=== PATIENT | female | born 1945 | race Caucasian/White ===

== ENCOUNTER → 2019-11-01 08:16 | Outpatient (BNVA) | payer MEDICARE, SELFPAY | PROVIDERS: Family Provider Nurse Practitioner Family; PCP Nurse Practitioner Family; Visit Provider Anesthesiology | DX: M17.0 Bilateral primary osteoarthritis of knee (principal); M19.90 Unspecified osteoarthritis, unspecified site; Z79.891 Long term (current) use of opiate analgesic | CPT/HCPCS: 20610; 77003; J2001; J7325 ==

== ENCOUNTER → 2019-11-07 16:18 | Outpatient (BNVA) | payer MEDICARE, SELFPAY | PROVIDERS: Family Provider Nurse Practitioner Family; PCP Nurse Practitioner Family; Visit Provider Nurse Practitioner Family | DX: D72.820 Lymphocytosis (symptomatic) (principal); D72.829 Elevated white blood cell count, unspecified; M35.3 Polymyalgia rheumatica; E11.40 Type 2 diabetes mellitus with diabetic neuropathy, unspecified; E11.65 Type 2 diabetes mellitus with hyperglycemia | CPT/HCPCS: 85007; 85027 ==

== ENCOUNTER → 2019-11-29 10:04 | Outpatient (BNVA) | payer BC, SELFPAY | PROVIDERS: Family Provider Nurse Practitioner Family; PCP Nurse Practitioner Family; Visit Provider Nurse Practitioner | DX: M51.36 Other intervertebral disc degeneration, lumbar region (principal); M47.812 Spondylosis without myelopathy or radiculopathy, cervical region; M25.511 Pain in right shoulder; M25.512 Pain in left shoulder; M25.561 Pain in right knee; M25.562 Pain in left knee; Z79.891 Long term (current) use of opiate analgesic | CPT/HCPCS: 99214 ==

== ENCOUNTER → 2020-03-27 14:32 | Outpatient (BNVA) | payer MEDICARE, SELFPAY | PROVIDERS: Family Provider Nurse Practitioner Family; PCP Nurse Practitioner Family; Visit Provider Anesthesiology | DX: G89.4 Chronic pain syndrome (principal); M51.36 Other intervertebral disc degeneration, lumbar region; M54.9 Dorsalgia, unspecified; M25.561 Pain in right knee; M25.562 Pain in left knee; M47.812 Spondylosis without myelopathy or radiculopathy, cervical region; Z79.891 Long term (current) use of opiate analgesic | CPT/HCPCS: 99214 ==

== ENCOUNTER → 2020-04-29 14:45 | Outpatient (BNVA) | payer MEDICARE, SELFPAY | PROVIDERS: Family Provider Nurse Practitioner Family; PCP Nurse Practitioner Family; Visit Provider Nurse Practitioner Family | DX: I10 Essential (primary) hypertension (principal); E03.9 Hypothyroidism, unspecified; E11.40 Type 2 diabetes mellitus with diabetic neuropathy, unspecified; M35.3 Polymyalgia rheumatica | CPT/HCPCS: 80053; 82044; 83036; 84443 ==

== ENCOUNTER → 2020-05-28 13:21 | Outpatient (BNVA) | payer MEDICARE, SELFPAY | PROVIDERS: Family Provider Nurse Practitioner Family; PCP Nurse Practitioner Family; Visit Provider Nurse Practitioner | DX: M51.36 Other intervertebral disc degeneration, lumbar region (principal); M47.812 Spondylosis without myelopathy or radiculopathy, cervical region; M25.561 Pain in right knee; M25.562 Pain in left knee; M15.9 Polyosteoarthritis, unspecified; Z02.89 Encounter for other administrative examinations; Z79.891 Long term (current) use of opiate analgesic | CPT/HCPCS: 99213; 99214 ==

== ENCOUNTER → 2020-07-25 12:50 | Outpatient (BNVA) | payer MEDICARE, SELFPAY | PROVIDERS: Family Provider Nurse Practitioner Family; PCP Nurse Practitioner Family; Visit Provider Anesthesiology | DX: M54.41 Lumbago with sciatica, right side (principal); M54.42 Lumbago with sciatica, left side; M51.36 Other intervertebral disc degeneration, lumbar region; M54.9 Dorsalgia, unspecified; M25.561 Pain in right knee; M25.562 Pain in left knee; M47.812 Spondylosis without myelopathy or radiculopathy, cervical region; M15.9 Polyosteoarthritis, unspecified; Z79.891 Long term (current) use of opiate analgesic | CPT/HCPCS: 99214 ==

== ENCOUNTER → 2020-09-25 13:34 | Outpatient (BNVA) | payer MEDICARE, SELFPAY | PROVIDERS: Family Provider Nurse Practitioner Family; PCP Family Medicine Adult Medicine; Visit Provider Anesthesiology | DX: M54.42 Lumbago with sciatica, left side (principal); M54.41 Lumbago with sciatica, right side; M51.36 Other intervertebral disc degeneration, lumbar region; M47.812 Spondylosis without myelopathy or radiculopathy, cervical region; M54.9 Dorsalgia, unspecified; M25.561 Pain in right knee; M25.562 Pain in left knee; Z79.891 Long term (current) use of opiate analgesic | CPT/HCPCS: 99214 ==

== ENCOUNTER → 2020-11-25 14:17 | Outpatient (BNVA) | payer MEDICARE, SELFPAY | PROVIDERS: Family Provider Nurse Practitioner Family; PCP Family Medicine Adult Medicine; Visit Provider Anesthesiology | DX: M51.36 Other intervertebral disc degeneration, lumbar region (principal); M47.812 Spondylosis without myelopathy or radiculopathy, cervical region; M54.9 Dorsalgia, unspecified; M25.551 Pain in right hip; M79.605 Pain in left leg; Z79.891 Long term (current) use of opiate analgesic | CPT/HCPCS: 99214 ==

== ENCOUNTER → 2020-11-27 10:39 | Outpatient (BNVA) | payer MEDICARE, SELFPAY | PROVIDERS: Family Provider Nurse Practitioner Family; PCP Family Medicine Adult Medicine; Visit Provider Nurse Practitioner Family | DX: E03.9 Hypothyroidism, unspecified (principal); E11.40 Type 2 diabetes mellitus with diabetic neuropathy, unspecified; Z51.81 Encounter for therapeutic drug level monitoring; M15.9 Polyosteoarthritis, unspecified | CPT/HCPCS: 80053; 83036; 84443 ==

== ENCOUNTER → 2021-01-22 13:55 | Outpatient (BNVA) | payer MEDICARE, SELFPAY | PROVIDERS: Family Provider Nurse Practitioner Family; PCP Family Medicine Adult Medicine; Visit Provider Anesthesiology | DX: M51.36 Other intervertebral disc degeneration, lumbar region (principal); M54.9 Dorsalgia, unspecified; M47.812 Spondylosis without myelopathy or radiculopathy, cervical region; M25.551 Pain in right hip; M79.605 Pain in left leg; Z79.891 Long term (current) use of opiate analgesic | CPT/HCPCS: 99214 ==

== ENCOUNTER 2021-01-31 17:49 | Emergency (ER) | payer MEDICARE, SELFPAY ==
[2021-01-31 17:59] VITALS: BP 136/88; PULSE 70; RESP 16; TEMP 37.1; O2SAT 97; BMI 28.3
[2021-01-31 18:07] VITALS: BP 139/62; PULSE 66; RESP 16; O2SAT 97
[2021-01-31 18:16] VITALS: BP 139/62; PULSE 66; RESP 16; O2SAT 98
--- NOTE | 2021-01-31 18:18 | XRR_ITS ---
PROCEDURE INFORMATION: Exam: XR Chest Exam date and time: 01/31/2021 6:20 PM Age: 75 years old Clinical indication: Prior surgery; Surgery date: 6+ months; Surgery type: Breast bx; Patient HX: C/O weakness and pain all over TECHNIQUE: Imaging protocol: XR of the chest. Views: 1 view. COMPARISON: No relevant prior studies available. FINDINGS: Lungs: Unremarkable. No consolidation. Pleural spaces: Unremarkable. No pleural effusion. No pneumothorax. Heart/Mediastinum: Unremarkable. No cardiomegaly. Bones/joints: Unremarkable. XR/XR chest 1V portable [id number] IMPRESSION: No acute findings.
--- NOTE | 2021-01-31 18:19 | USR_ITS ---
PROCEDURE INFORMATION: Exam: US Duplex Right Upper Extremity Veins, Limited Exam date and time: 01/31/2021 7:28 PM Age: 75 years old Clinical indication: Pain; Arm, upper; Right; Additional info: Rue swelling, redness, pain TECHNIQUE: Imaging protocol: Real-time Duplex ultrasound of the Right Upper Extremity with 2-D goldman scale, color Doppler flow and spectral waveform analysis with image documentation. Limited exam focused on the right upper extremity veins. COMPARISON: No relevant prior studies available. FINDINGS: Right deep veins: Unremarkable. Axillary and brachial veins are patent throughout without thrombus. Normal Doppler waveforms. Normal compressibility and/or augmentation response. Visualized internal jugular and subclavian veins are patent. Radial and ulnar veins in the forearm are patent. Right superficial veins: Unremarkable. Visualized basilic veins are patent without thrombus. Soft tissues: Unremarkable. US/[place] [id number] IMPRESSION: No evidence of deep or superficial vein thrombosis in the right upper extremity.
[2021-01-31 18:42] LABS: Basophils # 0.1 10^3/uL (0.0-0.1); Basophils % 0.5 %; Eosinophils # 0.3 10^3/uL (0.0-0.8); Eosinophils % 2.5 %; Hemoglobin 12.6 g/dL (11.5-15.3); Lymphocytes # 2.3 10^3/uL (0.8-4.8); Lymphocytes % 18.3 %; Mean Corpuscular HGB Conc 31.5 g/dL (30.0-36.0); Mean Corpuscular Hemoglobin 29.6 pg (28.0-34.0); Mean Corpuscular Volume 93.9 fL (81-99); Monocytes % 8.1 %; Neutrophils % 69.4 %; Nucleated Red Blood Cells % 0 %; Platelet Count 296 10^3/cmm (130-400); Red Blood Count 4.26 10^6/uL (4.1-5.3); Red Cell Distribution Width 14.5 % (12.1-15.1); White Blood Count 12.7 10^3/uL (4.0-10.0)
[2021-01-31 18:59] LABS: Lactate (Lactic Acid level) 1.2 mmol/L (0.5-2.2)
[2021-01-31 19:09] LABS: Procalcitonin 0.06 ng/mL (0-0.5)
[2021-01-31 19:16] VITALS: BP 135/66; PULSE 72; RESP 18; O2SAT 98
[2021-01-31 19:20] LABS: Alanine Aminotransferase 8 U/L (0-33); Albumin Level 3.6 g/dL (3.5-5.2); Alkaline Phosphatase 87 IU/L (35-105); Anion Gap 14.3 (5-19); Aspartate Amino Transferase 13 U/L (0-32); Blood Urea Nitrogen 16 mg/dL (8-23); C Reactive Protein 44.8 mg/L (0.0-4.9); Calcium 8.8 mg/dL (8.5-10.5); Carbon Dioxide 26 mmol/L (22-29); Chloride 97 mmol/L (98-107); Creatine Phosphokinase 98 U/L (26-192); Globulin 2.9 g/dL (1.3-4.6); Glucose 127 mg/dL (65-115); Osmolality Calculated 279 mOsm/kg (285-295); Potassium 4.3 mmol/L (3.5-5.1); Sodium 133 mmol/L (136-145); Total Bilirubin 0.5 mg/dL (0.15-1.2); Total Protein 6.5 g/dL (6.6-8.7)
--- NOTE | 2021-01-31 19:43 | W.ED.WEAKNES ---
HPI - Weakness General: Chief complaint: Weakness Stated complaint: WEAKNESS Time Seen by Provider: 01/31/21 17:59 Source: patient and family (daughter) Mode of arrival: ambulatory Limitations: no limitations History of Present Illness: HPI Narrative: The patient is a 75 year old female who was recently diagnosed with DM and lupus. She states that 2 of her brothers from lupus. She presents today with complaints of generalized weakness, generalized body aches, difficulty with ambulation. She has also had intermittent fever. MD Complaint: generalized weakness, lack of energy and difficulty walking Onset (ago): week(s) (1) Duration: constant Location: generalized Associated symptoms: Reports chills and dysuria; Denies chest pain, confusion, melena, decreased appetite, diaphoresis, easy bruising, fever(s), headache(s), myalgias, nausea, rash, short of breath, syncope or vomiting Review of Systems General: Reports: 10 or more systems reviewed and unremarkable except in HPI and below Const: Reports: chills; Denies: fever(s) or diaphoresis Card: Denies: chest pain or syncope GI: Denies: nausea, vomiting or melena : Reports: dysuria Neuro: Denies: headache(s) or confusion Natan/Lymph: Denies: easy bruising PFSH ED PFSH: Medical History (Updated 01/31/21 @ 20:55 by Tiffanie Al[place] [facility] [place] Anxiety disorder, unspecified Cervical spine arthritis Chronic pain disorder DDD (degenerative disc disease), lumbar Enrolled in chronic care management HTN (hypertension) Hypothyroidism Knee pain, bilateral Left anterior knee pain Long-term current use of opiate analgesic Pain management contract signed PMR (polymyalgia rheumatica) Subluxation of C5-C6 cervical vertebrae Type 2 diabetes mellitus with diabetic neuropathy, unspecified Surgical History (Reviewed 01/31/21 @ 20:21 by Tiffanie Al[place], [facility] [place] H/O total thyroidectomy H/O: hysterectomy History of appendectomy Previous back surgery Social History (Reviewed 01/31/21 @ 20:21 by Tiffanie Al[place]te [place], [facility] [place] Smoking and tobacco status: former smoker Alcohol intake: never Caregiver/support person: Yes (DAUGHTER THE BEST THAT SHE CAN) Lives independently: Yes Housing: House Pets and animals: Yes Pets & animals: dog(s) History of recent travel: No Physical Exam Const: COMMON NORMALS: no acute distress, average body habitus, patient oriented x3, no limitations, healthy appearing, alert and well nourished HENMT: COMMON NORMALS: normocephalic, atraumatic and moist oral mucous membranes HEAD & SCALP: normocephalic and atraumatic Neck/C-Spine: COMMON NORMALS: no meningeal signs and no JVD Resp: COMMON NORMALS: normal respiratory effort, No retractions, No use of accessory muscles, clear to auscultation bilaterally and percussion normal AUSCULTATION: clear to auscultation bilaterally PERCUSSION: percussion normal Cardio: COMMON NORMALS: no JVD, regular rate, regular rhythm, S1 normal heart sound present, S2 normal heart sound present, No gallops present (Cardio), No clicks present (Cardio), No murmurs present (Cardio), No rub (Cardio) and Peripheral pulses 2+ throughout RATE: regular rate RHYTHM: regular rhythm HEART SOUNDS: S1 normal heart sound present and S2 normal heart sound present PERIPHERAL PULSES: Peripheral pulses 2+ throughout GI: COMMON NORMALS: Normal to inspection, nondistended, normoactive bowel sounds present, Soft to palpation, non-tender, No hepatosplenomegaly present, no masses and no bruits PALPATION: Yes Soft to palpation and Yes No hepatosplenomegaly present Extremity: COMMON NORMALS: normal to inspection, full ROM, capillary refill normal, no calf tenderness and no pedal edema NARRATIVE EXTREMITY EXAM: Erythema or warmth of her right upper arm. Neuro: COMMON NORMALS: patient oriented x3 SENSORIUM/ORIENTATION: Yes alert MENINGEAL SIGNS: Yes no meningeal signs Skin: COMMON NORMALS: no rashes or lesions noted, no wounds, turgor normal, no jaundice, no petechiae and no mottling GENERAL SKIN EXAM: no rashes or lesions noted and turgor normal Course Reevaluation(s): Reevaluation #1: Discussed her lab and imaging findings with her. Unremarkable. No obvious cause for her weakness. CRP is elevated and she may be having a flareup of her lupus. We will increase the dose of her steroids and see if this helps her symptoms. She voiced understanding and is in agreement with the plan. Time: 20:50 Vital Signs: Vital signs: Vital Signs Temperature 98.8 F 01/31/21 17:59 Pulse Rate 67 01/31/21 21:23 Respiratory Rate 24 H 01/31/21 21:23 Blood Pressure 132/63 01/31/21 21:23 Pulse Oximetry 98 01/31/21 21:23 MDM - Weakness MDM Narrative: Medical decision making narrative: 75-year-old female patient who presents to the emergency department with generalized weakness. She was recently diagnosed with diabetes mellitus and lupus and evaluation in the emergency department did not reveal any obvious cause for her symptoms. She will be managed as a case of flareup of her lupus with oral corticosteroids. She will follow-up with her primary care provider. Medical Records: Attestation: I reviewed the patient's medical records. Lab Data: Attestation: I reviewed the patient's lab results. Labs: Lab Results 01/31/21 01/31/21 01/31/21 Range/Units 18:34 18:34 18:34 WBC 12.7 H (4.0-10.0) 10^3/ uL RBC 4.26 (4.1-5.3) 10^6/u L Hgb 12.6 (11.5-15.3) g/dL Hct 40.0 (37.0-47.0) % MCV 93.9 (81-99) fL MCH 29.6 (28.0-34.0) pg MCHC 31.5 (30.0-36.0) g/dL RDW 14.5 (12.1-15.1) % Plt Count 296 (130-400) 10^3/c mm MPV 10.0 (7.4-10.4) fL Neut % (Auto) 69.4 % Lymph % (Auto) 18.3 % Schuyler % (Auto) 8.1 % Eos % (Auto) 2.5 % Baso % (Auto) 0.5 % Neut # (Auto) 8.80 H (1.8-7.7) 10^3/u L Lymph # (Auto) 2.3 (0.8-4.8) 10^3/u L Schuyler # (Auto) 1.0 H (0.2-0.9) 10^3/u L Eos # (Auto) 0.3 (0.0-0.8) 10^3/u L Baso # (Auto) 0.1 (0.0-0.1) 10^3/u L Nucleated RBC % (a uto) 0 % Nucleated RBCs # 0.0 /100WBC Sodium 133 L (136-145) mmol/L Potassium 4.3 (3.5-5.1) mmol/L Chloride 97 L (98-107) mmol/L Carbon Dioxide 26 (22-29) mmol/L Anion Gap 14.3 (5-19) BUN 16 (8-23) mg/dL Creatinine 0.6 (0.5-0.9) mg/dL GFR Calculation Not Reportable Glucose 127 H (65-115) mg/dL Calculated Osmolal ity 279 L (285-295) mOsm/k g Lactate 1.2 (0.5-2.2) mmol/L Calcium 8.8 (8.5-10.5) mg/dL Total Bilirubin 0.5 (0.15-1.2) mg/dL AST 13 (0-32) U/L ALT 8 (0-33) U/L Alkaline Phosphata se 87 (35-105) IU/L Creatine Kinase 98 (26-192) U/L C-Reactive Protein 44.8 H (0.0-4.9) mg/L Total Protein 6.5 L (6.6-8.7) g/dL Albumin 3.6 (3.5-5.2) g/dL Globulin 2.9 (1.3-4.6) g/dL Procalcitonin 0.06 (0-0.5) ng/mL Urine Color (Yellow) Urine Appearance (CLEAR) Urine pH (5-7) Ur Specific Gravit y (1.005-1.030) Urine Protein (Negative) Urine Glucose (UA) (Normal) Urine Ketones (Negative) Urine Blood (Negative) Urine Nitrate (Negative) Urine Bilirubin (Negative) Urine Urobilinogen (Negative) mg/dL Ur Leukocyte Jada ase (Negative) Urine RBC (0-2) /hpf Urine WBC (0-5) /hpf Ur Squamous Epith Cells (0-5) /hpf Amorphous Sediment Urine Bacteria (NONE) /hpf 01/31/21 Range/Units 19:24 WBC (4.0-10.0) 10^3/ uL RBC (4.1-5.3) 10^6/u L Hgb (11.5-15.3) g/dL Hct (37.0-47.0) % MCV (81-99) fL MCH (28.0-34.0) pg MCHC (30.0-36.0) g/dL RDW (12.1-15.1) % Plt Count (130-400) 10^3/c mm MPV (7.4-10.4) fL Neut % (Auto) % Lymph % (Auto) % Schuyler % (Auto) % Eos % (Auto) % Baso % (Auto) % Neut # (Auto) (1.8-7.7) 10^3/u L Lymph # (Auto) (0.8-4.8) 10^3/u L Schuyler # (Auto) (0.2-0.9) 10^3/u L Eos # (Auto) (0.0-0.8) 10^3/u L Baso # (Auto) (0.0-0.1) 10^3/u L Nucleated RBC % (a uto) % Nucleated RBCs # /100WBC Sodium (136-145) mmol/L Potassium (3.5-5.1) mmol/L Chloride (98-107) mmol/L Carbon Dioxide (22-29) mmol/L Anion Gap (5-19) BUN (8-23) mg/dL Creatinine (0.5-0.9) mg/dL GFR Calculation Glucose (65-115) mg/dL Calculated Osmolal ity (285-295) mOsm/k g Lactate (0.5-2.2) mmol/L Calcium (8.5-10.5) mg/dL Total Bilirubin (0.15-1.2) mg/dL AST (0-32) U/L ALT (0-33) U/L Alkaline Phosphata se (35-105) IU/L Creatine Kinase (26-192) U/L C-Reactive Protein (0.0-4.9) mg/L Total Protein (6.6-8.7) g/dL Albumin (3.5-5.2) g/dL Globulin (1.3-4.6) g/dL Procalcitonin (0-0.5) ng/mL Urine Color Yellow (Yellow) Urine Appearance Clear (CLEAR) Urine pH 7 (5-7) Ur Specific Gravit y 1.010 (1.005-1.030) Urine Protein Neg (Negative) Urine Glucose (UA) Norm (Normal) Urine Ketones Negative (Negative) Urine Blood Neg (Negative) Urine Nitrate Negative (Negative) Urine Bilirubin Neg (Negative) Urine Urobilinogen Norm (Negative) mg/dL Ur Leukocyte Jada ase Trace H (Negative) Urine RBC 0-4 H (0-2) /hpf Urine WBC 5-10 H (0-5) /hpf Ur Squamous Epith Cells 0-4 H (0-5) /hpf Amorphous Sediment Not Reportable Urine Bacteria Trace (NONE) /hpf Imaging Data^: US Vascular: Attestation: I personally reviewed and interpreted this imaging study as follows: Radiologist's impression: [address] [address] Ultrasound Report Signed Patient: Jaclyn Sellers #: [id number] : 3Acct#:[id number] Age/Sex: 75 / FADM Date: 01/31/21 Loc: ERRoom/Bed: Attending Dr: Ordering Provider/Ordering MD: Tiffanie Al[place] [facility] [place] Date of Service: 01/31/21 Procedure(s): [place] [id number] Accession Number(s): [id number] Report Number: [id number] PROCEDURE INFORMATION: Exam: US Duplex Right Upper Extremity Veins, Limited Exam date and time: 01/31/2021 7:28 PM Age: 75 years old Clinical indication: Pain; Arm, upper; Right; Additional info: Rue swelling, redness, pain TECHNIQUE: Imaging protocol: Real-time Duplex ultrasound of the Right Upper Extremity with 2-D goldman scale, color Doppler flow and spectral waveform analysis with image documentation. Limited exam focused on the right upper extremity veins. COMPARISON: No relevant prior studies available. FINDINGS: Right deep veins: Unremarkable. Axillary and brachial veins are patent throughout without thrombus. Normal Doppler waveforms. Normal compressibility and/or augmentation response. Visualized internal jugular and subclavian veins are patent. Radial and ulnar veins in the forearm are patent. Right superficial veins: Unremarkable. Visualized basilic veins are patent without thrombus. Soft tissues: Unremarkable. US/[place] [id number] IMPRESSION: No evidence of deep or superficial vein thrombosis in the right upper extremity. Dictated By:Jim Townsend Signed By:Massiel Townsend Date/Time:01/31/211947 DD/ 46 CXR: Attestation: I personally reviewed and interpreted this imaging study as follows: Radiologist's impression: [address] [address] XRay Report Signed Patient: Jaclyn Sellers #: [id number] : 3Acct#:[id number] Age/Sex: 75 / FADM Date: 01/31/21 Loc: ERRoom/Bed: Attending Dr: Ordering Provider/Ordering MD: Tiffanie Almonte [place], [facility] [place] Date of Service: 01/31/21 Procedure(s): XR chest 1V portable [id number] Accession Number(s): [id number] Report Number: [id number] PROCEDURE INFORMATION: Exam: XR Chest Exam date and time: 01/31/2021 6:20 PM Age: 75 years old Clinical indication: Prior surgery; Surgery date: 6+ months; Surgery type: Breast bx; Patient HX: C/O weakness and pain all over TECHNIQUE: Imaging protocol: XR of the chest. Views: 1 view. COMPARISON: No relevant prior studies available. FINDINGS: Lungs: Unremarkable. No consolidation. Pleural spaces: Unremarkable. No pleural effusion. No pneumothorax. Heart/Mediastinum: Unremarkable. No cardiomegaly. Bones/joints: Unremarkable. XR/XR chest 1V portable [id number] IMPRESSION: No acute findings. Dictated By:Jim Townsend Signed By:Massiel Townsend Date/Time:01/31/211918 DD/ 17 Discharge Plan Discharge Patient Disposition: Home Clinical Impression: Generalized weakness, PMR (polymyalgia rheumatica) Condition: Stable Prescriptions: New prednisone 20 mg tablet 40 mg PO DAILY 5 Days Qty: 10 RF: 0 Continued [id number]-[id number] Tablet 1 tab PO ONCE RF: 0 sertraline 50 mg tablet 50 mg PO Q24H Qty: 90 RF: 0 ciprofloxacin HCl [Ciloxan] 0.3 % drops See Rx Instructions ophthalmic (eye) .COMPLEX Qty: 10 RF: 0 hydrocodone-acetaminophen 10-325 mg tablet 1 tab PO .6 TIMES 30 Days Qty: 180 RF: 0 hydrocodone-acetaminophen 10-325 mg tablet 1 tab PO .6 TIMES DAILY PRN (Reason: pain) 30 Days Qty: 180 RF: 0 gabapentin 300 mg capsule 300 mg PO TID 30 Days Qty: 90 RF: 1 temazepam 15 mg capsule 15 mg PO .QHS 30 Days Qty: 30 RF: 1 (DME) Accu-Chek Lauryn Plus test strp Strip See Rx Instructions .ROUTE .MEDSUPPLY Qty: 100 RF: 11 Januvia 100 mg tablet 100 mg PO DAILY Qty: 90 RF: 1 prednisone 10 mg tablet 10 mg PO .every other day Qty: 30 RF: 0 pen needle, diabetic [BD Aishwarya 2nd Gen Pen Needle] 32 gauge x 5/32 needle See Rx Instructions .ROUTE .COMPLEX Qty: 100 RF: 0 levothyroxine 100 mcg capsule 100 mcg PO DAILY Qty: 90 RF: 0 Lantus Solostar U-100 Insulin 100 unit/mL (3 mL) insulin pen 10 unit SUBCUT .bedtime Qty: 15 RF: 0 lisinopril 20 mg tablet 20 mg PO DAILY Qty: 90 RF: 0 omeprazole magnesium [Prilosec OTC] 20 mg tablet,delayed release (DR/EC) 20 mg PO DAILY Qty: 90 RF: 0 oxycodone 10 mg tablet 10 mg PO QID PRN (Reason: pain) 30 Days Qty: 120 RF: 0 Discharge Orders: Discharge ED (Routine); Ordered 01/31/21 Ordered By: Tiffanie Almonte Referrals: Leonardo Loaiza MD [Primary Care Provider] - 1-3 days Discharge Diet: Usual diet Discharge Activity: Increase activity as tolerated Patient Instructions: Weakness (Generalized) Activity Restrictions/Additional Instructions: Return for any new or worsening symptoms. Follow-up with your primary care provider within 3 days. Take the steroids as prescribed, and resume your prior dose of steroids after this. Coding Level of Care Code ED Operating Room Nurse for Sunshine Fwd Exam Comprehensive
[2021-01-31 19:47] LABS: Add Urine Microscopic? YES; Bilirubin Urine Neg (Negative); Blood Urine Neg (Negative); Glucose Urine UA Norm (Normal); Ketones Urine Negative (Negative); Leukocyte Esterase Urine Trace (Negative); Nitrate Urine Negative (Negative); Protein Urine Neg (Negative); Urine Appearance Clear (CLEAR); Urine Color Yellow (Yellow); Urobilinogen Urine Norm (Negative); pH Urine 7 (5-7)
[2021-01-31 19:51] LABS: Add Urine Culture? No; Bacteria Urine TRACE /hpf; RBC Urine 0-4 /hpf (0-2); Squamous Epithelial Cell Urine 0-4 /hpf (0-5)
[2021-01-31 21:23] VITALS: BP 132/63; PULSE 67; RESP 24; O2SAT 98
== END 2021-01-31 21:24 | disposition home or self-care (01) ==
PROVIDERS: Emergency Provider Family Medicine; PCP Family Medicine Adult Medicine
DX: R53.1 Weakness (principal); M35.3 Polymyalgia rheumatica; Z79.4 Long term (current) use of insulin; I10 Essential (primary) hypertension; E11.9 Type 2 diabetes mellitus without complications; Z87.891 Personal history of nicotine dependence; M79.601 Pain in right arm
CPT/HCPCS: 71045; 80053; 81001; 82550; 83605; 84145; 85025; 86140; 87040; 93971; 96374; 99283; J2930

== ENCOUNTER 2021-02-27 16:49 | Inpatient (IN) | payer MEDICARE, SELFPAY ==
[2021-02-27] VITALS (7 sets, daily range): BP systolic 108–127; BP diastolic 63–83; PULSE 66–84; RESP 12–21; TEMP 36.7; O2SAT 94–98; BMI 27.4
--- NOTE | 2021-02-27 18:01 | XRR_ITS ---
PROCEDURE INFORMATION: Exam: XR Chest Exam date and time: 02/27/2021 6:13 PM Age: 75 years old Clinical indication: Shortness of breath; Additional info: Reduced breath sounds TECHNIQUE: Imaging protocol: XR of the chest. Views: 1 view. COMPARISON: CR XR chest 1V portable [id number] 01/31/2021 6:33 PM FINDINGS: Lungs: Well inflated and clear. Pleural spaces: Unremarkable. No pleural effusion. No pneumothorax. Heart/Mediastinum: The cardiac shadow is normal in size. Bones/joints: No acute abnormality. XR/XR chest 1V portable [id number] IMPRESSION: No acute findings.
--- NOTE | 2021-02-27 18:02 | XRR_ITS ---
PROCEDURE INFORMATION: Exam: XR Right Elbow Exam date and time: 02/27/2021 6:13 PM Age: 75 years old Clinical indication: Pain; Elbow; Right; Additional info: Fall TECHNIQUE: Imaging protocol: XR Right elbow. Views: 1 or 2 views. COMPARISON: [place] [id number] 01/31/2021 6:48 PM FINDINGS: Bones/joints: No acute displaced fracture or dislocation. Mild joint space narrowing. A lobulated posterior contour of the distal humerus likely is normal anatomy exaggerated by positioning. Osteochondroma or other nonaggressive tumor is also possible. Soft tissues: Normal. XR/XR elbow RT 2V [id number] IMPRESSION: No acute findings.
--- NOTE | 2021-02-27 18:02 | ECG_ITS ---
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 Measurements Intervals [place] Rate: 67 P: 61 VT: 180 QRS: -1 QRSD: 92 T: 30 QT: 358 QTc: 380 Interpretive Statements SINUS RHYTHM No previous ECG available for comparison Electronically Signed On 03-01-2021 12:10:00 CDT by Frances Muse M.D. [id number]
--- NOTE | 2021-02-27 18:02 | XRR_ITS ---
PROCEDURE INFORMATION: Exam: XR Right Shoulder Exam date and time: 02/27/2021 6:13 PM Age: 75 years old Clinical indication: Pain; Shoulder; Right; Additional info: Fall TECHNIQUE: Imaging protocol: XR Right shoulder. Views: 2 or more views. COMPARISON: [place] [id number] 01/31/2021 6:48 PM FINDINGS: Bones/joints: No acute displaced fracture. High-riding humeral head. No significant change in positioning between the internal and external rotation views, likely secondary to patient effort positioning. 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 Soft tissues: Normal. XR/XR shoulder RT min 2V* [id number] IMPRESSION: 1. No acute displaced fracture or dislocation. 2. High riding humeral head suggesting full-thickness superior rotator cuff tear.
--- NOTE | 2021-02-27 18:02 | XRR_ITS ---
PROCEDURE INFORMATION: Exam: XR Right Wrist Exam date and time: 02/27/2021 6:13 PM Age: 75 years old Clinical indication: Pain; Wrist; Right; Additional info: Fall/pain TECHNIQUE: Imaging protocol: XR Right wrist. Views: 1 or 2 views. COMPARISON: [place] [id number] 01/31/2021 6:48 PM FINDINGS: Bones/joints: No acute displaced fracture or dislocation. Widening of the scapholunate interval. Rotation of the scaphoid. 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 Soft tissues: Normal. XR/XR wrist RT 2V [id number] IMPRESSION: 1. No acute displaced fracture or dislocation. 2. Age indeterminate tear of the scapholunate ligament.
[2021-02-27 19:05] LABS: Basophils # 0.1 10^3/uL (0.0-0.1); Basophils % 0.9 %; Eosinophils # 0.3 10^3/uL (0.0-0.8); Eosinophils % 3.7 %; Hematocrit 41.7 % (37.0-47.0); Lymphocytes # 1.9 10^3/uL (0.8-4.8); Lymphocytes % 20.9 %; Mean Corpuscular HGB Conc 31.2 g/dL (30.0-36.0); Mean Corpuscular Hemoglobin 28.9 pg (28.0-34.0); Mean Corpuscular Volume 92.7 fL (81-99); Monocytes # 0.7 10^3/uL (0.2-0.9); Monocytes % 7.9 %; Neutrophils # 6.03 10^3/uL (1.8-7.7); Neutrophils % 65.1 %; Nucleated Red Blood Cells % 0 %; Platelet Count 312 10^3/cmm (130-400); Red Cell Distribution Width 14.1 % (12.1-15.1); White Blood Count 9.3 10^3/uL (4.0-10.0)
[2021-02-27 19:21] LABS: Lactate (Lactic Acid level) 1.2 mmol/L (0.5-2.2)
[2021-02-27 19:23] LABS: Add Urine Microscopic? YES; Bilirubin Urine Neg (Negative); Blood Urine Neg (Negative); Glucose Urine UA Norm (Normal); Ketones Urine Negative (Negative); Leukocyte Esterase Urine Trace (Negative); Nitrate Urine Negative (Negative); Protein Urine Neg (Negative); Urine Appearance Clear (CLEAR); Urine Color Yellow (Yellow); Urobilinogen Urine Norm (Negative); pH Urine 5 (5-7)
[2021-02-27 19:24] LABS: Add Urine Culture? Yes; Bacteria Urine 2+ /hpf; Hyaline Casts Urine 0-4 /lpf; Mucus Urine TRACE /hpf; RBC Urine 0-4 /hpf (0-2); Squamous Epithelial Cell Urine 0-4 /hpf (0-5); WBC Urine 25-40 /hpf (0-5)
[2021-02-27 19:24] LABS: Troponin(5th) Baseline 38 ng/L (0-10)
--- NOTE | 2021-02-27 19:30 | ECG_ITS ---
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 Measurements Intervals [place] Rate: 66 P: 66 NE: 179 QRS: 6 QRSD: 96 T: 39 QT: 371 QTc: 390 Interpretive Statements SINUS RHYTHM Compared to ECG 02/27/2021 18:25:44 No significant changes Electronically Signed On 03-01-2021 12:21:57 CDT by Frances Muse M.D. [id number]
[2021-02-27 19:32] LABS: Alanine Aminotransferase 9 U/L (0-33); Albumin Level 3.3 g/dL (3.5-5.2); Alkaline Phosphatase 86 IU/L (35-105); Anion Gap 16.5 (5-19); Aspartate Amino Transferase 13 U/L (0-32); Blood Urea Nitrogen 13 mg/dL (8-23); Calcium 8.6 mg/dL (8.5-10.5); Carbon Dioxide 23 mmol/L (22-29); Chloride 99 mmol/L (98-107); Creatinine Clr Calc Pharmacy 59.6276; Globulin 2.2 g/dL (1.3-4.6); Glucose 160 mg/dL (65-115); NT Pro B Type Natriuretic Pept 50 pg/mL (0-450); Osmolality Calculated 282 mOsm/kg (285-295); Potassium 4.5 mmol/L (3.5-5.1); Sodium 134 mmol/L (136-145); Total Bilirubin 0.3 mg/dL (0.15-1.2); Total Protein 5.5 g/dL (6.6-8.7)
--- NOTE | 2021-02-27 20:02 | ECG_ITS ---
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 Measurements Intervals [place] Rate: 68 P: 94 MA: 176 QRS: 0 QRSD: 93 T: 31 QT: 368 QTc: 392 Interpretive Statements SINUS RHYTHM Compared to ECG 02/27/2021 18:25:44 No significant changes Electronically Signed On 03-01-2021 12:21:25 CDT by Frances Muse M.D. [id number]
[2021-02-27] MEDS: sodium chloride 0.9% 1,000 ML 999 ML IV (20:07)
[2021-02-27] MEDS: cefTRIAXone 1,000 MG in sodium chloride 0.9% (plus) 50 ML 100 MG IV (20:07)
[2021-02-27 21:46] LABS: Troponin 5 2HR 39.12 ng/L (0-10); Troponin 5 2HR Delta 1.12 ABS# (0-10)
--- NOTE | 2021-02-27 22:31 | PC.NURSE ---
patient was unable to ambulate due to weakness and knee pain. MD notified
[2021-02-27 22:42] LABS: Erythrocyte Sedimentation Rate 56 mm/hr (0-15)
--- NOTE | 2021-02-27 22:49 | P.HP_ITS ---
Providers/Chief Complaint Primary Care Provider: Leonardo Loaiza MD Chief Complaint: GENERALIZED WEAKNESS History of Present Illness Jaclyn Sellers is a 75 year old female who has previous diagnosis of polymyalgia rheumatica, right shoulder rotator cuff injury, presented today with chief complaint of confusion and generalized weakness. Daughter is at the bedside who is endorsing that in last 24 hours her mother condition has declined si gnificantly she has not noticed any strokelike symptoms however she has not been able to ambulate on her own at baseline she uses a cane for ambulation, she is attributing her symptoms to withholding her prednisone. She was getting 15 mg of prednisone until a month ago, that was stopped abruptly without any taper. She is stating that during Covid pandemic they tried to call the clinic but prednisone prescription was not refilled and they were told that it is not indicated anymore. Ms. Sellers seems very lethargic however denying chest pain, shortness of breath, fever, shortness of breath, nausea endorsing decreased urine output, she has not eaten well in last 24 hours even during cath small amount of urine was obtained. Diagnostics in the ER revealed slightly abnormal UA, she was diagnosed with UTI and treated with ceftriaxone, no strokelike symptoms, no signs of pneumonia on chest x-ray shoulder is showing chronic rotator cuff injury, so lethargic and weak that she is not able to sit up in her bed without assistance Review of Systems Const: Reports: change in appetite, change in weight and fatigue; Denies: fever(s) Eyes: Denies: change in vision ENMT: Denies: throat pain Card: Denies: chest pain Resp: Denies: dyspnea GI: Denies: abdominal pain : Reports: difficulty voiding and oliguria; Denies: flank pain Musc: Denies: neck pain Skin/Breast: Denies: rash Neuro: Denies: headache(s) Psych: Denies: sleeping more Endo: Denies: polyuria Natan/Lymph: Denies: easy bruising All/Imm: Denies: urticaria Medications/Allergies Home Medications Medication Instructions Recorded Confirmed Last Taken Type sertraline 50 mg tablet 50 mg PO Q24H #90 tab 09/23/20 02/27/21 02/27/21 Rx oxycodone 10 mg tablet 10 mg PO QID PRN 30 Days #120 tab 01/30/21 02/27/21 02/27/21 Rx blood sugar diagnostic #100 each 02/19/21 02/27/21 Unknown Rx Lantus Solostar U-100 Insulin 10 unit SUBCUT BEDTIME@199902/27/21 02/27/21 02/26/21 History Prilosec OTC 20 mg PO DAILY@59902/27/21 02/27/21 02/27/21 History gabapentin 300 mg PO TID@,,02/27/21 02/27/21 02/27/21 History ibuprofen [Advil] 200 - 400 mg PO Q6H PRN 02/27/21 02/27/21 02/26/21 History levothyroxine 100 mcg PO DAILY@59902/27/21 02/27/21 02/27/21 History lisinopril 20 mg PO DAILY@69902/27/21 02/27/21 02/27/21 History sitagliptin [Januvia] 100 mg PO DAILY@59902/27/21 02/27/21 02/27/21 History temazepam 15 mg PO BEDTIME@199902/27/21 02/27/21 02/26/21 History Allergies Allergy/AdvReac Type Severity Reaction Status Date / Time baclofen Allergy ADR-Shakine Verified 02/27/21 17:01 ss bupropion [From Wellbutrin] Allergy ADR-Nausea Verified 02/27/21 17:01 celecoxib [From Celebrex] Allergy ALGY-Rash Verified 02/27/21 17:01 codeine Allergy ADR-Dizzine Verified 02/27/21 17:01 ss erythromycin base Allergy ADR-Vomitin Verified 02/27/21 17:01 g leflunomide Allergy Unknown Verified 02/27/21 17:01 pregabalin [From Lyrica] Allergy ALGY-Rash Verified 02/27/21 17:01 Sulfa (Sulfonamide Allergy VOMITING Verified 02/27/21 17:01 Antibiotics) PFSH Acute PFSH: Medical History Anxiety disorder, unspecified Cervical spine arthritis Chronic intermittent steroid use Chronic pain disorder DDD (degenerative disc disease), lumbar Enrolled in chronic care management Enrolled in chronic care management HTN (hypertension) Hypothyroidism Knee pain, bilateral Left anterior knee pain Long-term current use of opiate analgesic Pain management contract signed PMR (polymyalgia rheumatica) Subluxation of C5-C6 cervical vertebrae Total body pain Type 2 diabetes mellitus with diabetic neuropathy, unspecified Surgical History H/O total thyroidectomy H/O: hysterectomy History of appendectomy Previous back surgery Social History Smoking and tobacco status: former smoker Alcohol intake: never Caregiver/support person: Yes (DAUGHTER THE BEST THAT SHE CAN) Lives independently: Yes Housing: House Pets and animals: Yes Pets & animals: dog(s) History of recent travel: No Vitals/I&O/Wt Last Vital Signs Temp 98.1 F 02/27/21 16:55 Pulse 67 02/27/21 22:16 Resp 20 H 02/27/21 22:16 BP 125/83 02/27/21 22:16 Pulse Ox 96 02/27/21 22:16 02/27/21 02/27/21 02/27/21 06:59 14:59 22:59 Intake Total 1050 / 1050 Balance 1050 / 1050 Weight last 48 hrs Weight 74.843 kg Physical Exam Narrative: EXAM NARRATIVE: Elderly female laying supine in her bed saturating well on room air No active chest pain shortness of breath or abdominal pain Patient is very drowsy However verbally redirectable, answers to my questions appropriately Upper extremity decrease trend, weak handgrip bilaterally, no facial droop, extremely dry mucous membranes, lower extremity no edema S1, S2 no arrhythmia noted Abdomen soft, central obesity nontender EOMI, PERRLA Dry mucous membranes Drowsy and lethargic Limited range of motion of right shoulder Petechiae of skin noted Data : 02/27/21 19:00 02/27/21 19:00 A&P Assessment and plan (1) Weakness generalized: Status: Acute (2) UTI (urinary tract infection): Status: Acute (3) Hypothyroidism: Status: Acute (4) Chronic pain disorder: Status: Chronic (5) PMR (polymyalgia rheumatica): Status: Chronic (6) Type 2 diabetes mellitus with diabetic neuropathy, unspecified: Status: Chronic Additional A&P Information Generalized weakness secondary to UTI Underlying diagnosis of PMR Start ceftriaxone Start prednisone 10 mg, her steroids were abruptly stopped a month ago as per her daughter No signs of adrenal crisis Requested urine sample and urine culture No signs of sepsis Requested TSH No signs of stroke or meningitis, no active chest pain or shortness of breath Hypothyroidism: Check TSH continue levothyroxine 100 mcg for now Essential hypertension: Currently normotensive continue lisinopril Type 2 diabetes: Consistent carb diet Moderate sliding scale, check A1c level, previous level 7.5 Full code DVT prophylaxis Lovenox Physical therapy evaluation At home she uses a cane for ambulation Attestations Medical Necessity Statement*: Anticipating discharge in less than 48 hours will need overnight monitoring because of generalized weakness, UTI will need physical therapy evaluation before discharge Time Spent in Patient Care: (>than 50% of time spent in counselling and/or direct pt care on unit) . 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
--- NOTE | 2021-02-27 23:00 | ED_ITS ---
HPI - Weakness General: Chief complaint: Weakness Stated complaint: GENERALIZED WEAKNESS Time Seen by Provider: 02/27/21 17:42 History of Present Illness: HPI Narrative: The patient is a 75-year-old female with past medical history of polymyalgia rheumatica, arthritis. She comes to the ER complaining of generalized weakness which has been increasing for the past several days at home. She has been unable to get out of bed for the past day and her daughter is chronically ill and unable to help her get out of bed. She also complains of intermittent right shoulder pain though denies any injuries to the area. She has had chronic pain in this area for the past couple years. Denies any focal weakness. She says she gets exacerbations of her arthritis in flares and this feels similar to a flare of her symptoms. MD Complaint: generalized weakness Associated symptoms: Denies chest pain, confusion, fever(s) or headache(s) Review of Systems General: Reports: 10 or more systems reviewed and unremarkable except in HPI and below Const: Reports: body aches and fatigue; Denies: fever(s) Eyes: Denies: change in vision, blurry vision or eye redness ENMT: Denies: throat pain, swelling of lips/tongue, ear or mastoid pain or nasal congestion Card: Denies: chest pain, palpitations, irregular heart rhythm, edema, dyspnea on exertion or orthopnea Resp: Denies: dyspnea, productive cough or non-productive cough GI: Denies: abdominal pain, diarrhea or GI cramping : Denies: flank pain, difficulty voiding, urinary frequency or urinary urgency Musc: Reports: joint pain; Denies: neck pain, back pain, extremity pain, joint redness, limited range of motion or muscle weakness Skin/Breast: Denies: rash, pruritus, erythema, skin pain or skin tenderness Neuro: Denies: headache(s), numbness in extremities, weakness in extremities, sensory changes, difficulty walking, dizziness, confusion or Slurred speech present Psych: Denies: anxiety or depression Endo: Denies: polyuria All/Imm: Denies: urticaria, throat swelling or tongue swelling PFSH ED PFSH: Medical History Anxiety disorder, unspecified Cervical spine arthritis Chronic intermittent steroid use Chronic pain disorder DDD (degenerative disc disease), lumbar Enrolled in chronic care management Enrolled in chronic care management HTN (hypertension) Hypothyroidism Knee pain, bilateral Left anterior knee pain Long-term current use of opiate analgesic Pain management contract signed PMR (polymyalgia rheumatica) Subluxation of C5-C6 cervical vertebrae Total body pain Type 2 diabetes mellitus with diabetic neuropathy, unspecified Surgical History H/O total thyroidectomy H/O: hysterectomy History of appendectomy Previous back surgery Social History Smoking and tobacco status: former smoker Alcohol intake: never Caregiver/support person: Yes (DAUGHTER THE BEST THAT SHE CAN) Lives independently: Yes Housing: House Pets and animals: Yes Pets & animals: dog(s) History of recent travel: No Physical Exam Const: COMMON NORMALS: no acute distress, average body habitus, patient oriented x3, no limitations, healthy appearing, alert and well nourished GENERAL APPEARANCE: cooperative, comfortable, well kempt and well developed ORIENTATION/CONSCIOUSNESS: Yes awake, Yes oriented to person, Yes oriented to p lace and Yes oriented to time HENMT: COMMON NORMALS: normocephalic, external ears normal and Normal external nose present HEAD & SCALP: normal to inspection and normocephalic NOSE: Normal external nose present EXTERNAL EAR: Yes external ears normal MOUTH: Normal oral and palatal mucosa present THROAT: posterior oropharynx normal Eye: COMMON NORMALS: Equal, round and reactive pupils present and EOMs intact bilaterally GENERAL EYE: appearance normal, both eyes and all related str uctures PUPIL: Yes Equal, round and reactive pupils present Neck/C-Spine: COMMON NORMALS: full ROM, no lymphadenopathy, no meningeal signs and no JVD GENERAL: Yes normal visual inspection Lymph: LYMPHATIC: no lymphadenopathy noted Chest: COMMONS NORMALS: normal inspection of the chest and normal palpation of entire chest wall Resp: COMMON NORMALS: normal respiratory effort, No retractions, No use of accessory muscles, clear to auscultation bilaterally and percussion normal EFFORT & INSPECTION: Yes able to speak in complete sentences AUSCULTATION: clear to auscultation bilaterally PERCUSSION: percussion normal Cardio: COMMON NORMALS: no JVD, regular rate, regular rhythm, S1 normal heart sound present, S2 normal heart sound present and Peripheral pulses 2+ throughout RATE: regular rate RHYTHM: regular rhythm HEART SOUNDS: S1 normal heart sound present and S2 normal heart sound present PERIPHERAL PULSES: Peripheral pulses 2+ throughout GI: COMMON NORMALS: Normal to inspection, nondistended, normoactive bowel sounds present, Soft to palpation, non-tender and no masses INSPECTION: Yes normal to inspection PALPATION: Yes Soft to palpation : COMMON NORMALS: Yes no CVA tenderness BLADDER/KIDNEY EXAM: Yes no CVA tenderness Back/Pelvis: COMMON NORMALS: no CVA tenderness, thoracic and lumbar spine normal to inspection, no thoracic nor lumbar tenderness and thoraco-lumbar ROM normal Extremity: COMMON NORMALS: normal to inspection, full ROM, capillary refill normal, no joint enlargement and no pedal edema GENERAL: Yes normal exam except as noted Neuro: COMMON NORMALS: patient oriented x3, CN's II-XII intact bilaterally, moves all extremities, no focal motor deficits, no sensory deficits noted and ga it normal SENSORIUM/ORIENTATION: Yes alert, Yes oriented to person, Yes oriented to place and Yes oriented to time MENINGEAL SIGNS: Yes no meningeal signs OTHER: She is generally weak in all extremities. No focal weakness. She is unable to stand on her own, walk, or take care of herself. Psych: COMMON NORMALS: mental status grossly normal, Normal thought process present, cooperative, normal affect and speech normal APPEARANCE: Yes well kempt ATTITUDE: Yes calm SPEECH: Yes normal speech THOUGHT PROCESS: Normal thought process present Skin: COMMON NORMALS: no rashes or lesions noted GENERAL SKIN EXAM: no rashes or lesions noted Course Vital Signs: Vital signs: Vital Signs Temperature 98.1 F 02/27/21 16:55 Pulse Rate 70 02/27/21 22:55 Respiratory Rate 21 H 02/27/21 22:55 Blood Pressure 125/83 02/27/21 22:55 Pulse Oximetry 94 02/27/21 22:55 MDM - Weakness MDM Narrative: Medical decision making narrative: The patient is a 75-year-old female who comes to the ER for increasing general weakness. This is likely a flare of her longstanding polymyalgia rheumatica. She was given Solu-Medrol with no improvement of her symptoms and she is unable to walk, stand, or take care of herself. She also has a UTI. She will be admitted to the hospitalist service under Dr. Omar Lab Data: Labs: Lab Results 02/27/21 02/27/21 02/27/21 Range/Units 19:00 19:00 19:00 WBC 9.3 (4.0-10.0) 10^3/ uL RBC 4.50 (4.1-5.3) 10^6/u L Hgb 13.0 (11.5-15.3) g/dL Hct 41.7 (37.0-47.0) % MCV 92.7 (81-99) fL MCH 28.9 (28.0-34.0) pg MCHC 31.2 (30.0-36.0) g/dL RDW 14.1 (12.1-15.1) % Plt Count 312 (130-400) 10^3/c mm MPV 10.0 (7.4-10.4) fL Neut % (Auto) 65.1 % Lymph % (Auto) 20.9 % [place] % (Auto) 7.9 % Eos % (Auto) 3.7 % Baso % (Auto) 0.9 % Neut # (Auto) 6.03 (1.8-7.7) 10^3/u L Lymph # (Auto) 1.9 (0.8-4.8) 10^3/u L [place] # (Auto) 0.7 (0.2-0.9) 10^3/u L Eos # (Auto) 0.3 (0.0-0.8) 10^3/u L Baso # (Auto) 0.1 (0.0-0.1) 10^3/u L Nucleated RBC % (a uto) 0 % Nucleated RBCs # 0.0 /100WBC ESR (0-15) mm/hr Sodium 134 L (136-145) mmol/L Potassium 4.5 (3.5-5.1) mmol/L Chloride 99 (98-107) mmol/L Carbon Dioxide 23 (22-29) mmol/L Anion Gap 16.5 (5-19) BUN 13 (8-23) mg/dL Creatinine 0.8 (0.5-0.9) mg/dL GFR Calculation Not Reportable Glucose 160 H (65-115) mg/dL Calculated Osmolal ity 282 L (285-295) mOsm/k g Lactate 1.2 (0.5-2.2) mmol/L Calcium 8.6 (8.5-10.5) mg/dL Total Bilirubin 0.3 (0.15-1.2) mg/dL AST 13 (0-32) U/L ALT 9 (0-33) U/L Alkaline Phosphata se 86 (35-105) IU/L Troponin T Baselin e (0-10) ng/L Troponin T 120 Min [place] (0-10) ng/L Delta Troponin T (0-10) ABS# NT-Pro-B Natriuret Pep 50 (0-450) pg/mL Total Protein 5.5 L (6.6-8.7) g/dL Albumin 3.3 L (3.5-5.2) g/dL Globulin 2.2 (1.3-4.6) g/dL Urine Color (Yellow) Urine Appearance (CLEAR) Urine pH (5-7) Ur Specific Gravit y (1.005-1.030) Urine Protein (Negative) Urine Glucose (UA) (Normal) Urine Ketones (Negative) Urine Blood (Negative) Urine Nitrate (Negative) Urine Bilirubin (Negative) Urine Urobilinogen (Negative) mg/dL Ur Leukocyte Jada ase (Negative) Urine RBC (0-2) /hpf Urine WBC (0-5) /hpf Ur Squamous Epith Cells (0-5) /hpf Amorphous Sediment Urine Bacteria (NONE) /hpf Hyaline Casts /lpf Urine Mucus /hpf 02/27/21 02/27/21 02/27/21 Range/Units 19:00 19:00 19:11 WBC (4.0-10.0) 10^3/ uL RBC (4.1-5.3) 10^6/u L Hgb (11.5-15.3) g/dL Hct (37.0-47.0) % MCV (81-99) fL MCH (28.0-34.0) pg MCHC (30.0-36.0) g/dL RDW (12.1-15.1) % Plt Count (130-400) 10^3/c mm MPV (7.4-10.4) fL Neut % (Auto) % Lymph % (Auto) % [place] % (Auto) % Eos % (Auto) % Baso % (Auto) % Neut # (Auto) (1.8-7.7) 10^3/u L Lymph # (Auto) (0.8-4.8) 10^3/u L [place] # (Auto) (0.2-0.9) 10^3/u L Eos # (Auto) (0.0-0.8) 10^3/u L Baso # (Auto) (0.0-0.1) 10^3/u L Nucleated RBC % (a uto) % Nucleated RBCs # /100WBC ESR 56 H (0-15) mm/hr Sodium (136-145) mmol/L Potassium (3.5-5.1) mmol/L Chloride (98-107) mmol/L Carbon Dioxide (22-29) mmol/L Anion Gap (5-19) BUN (8-23) mg/dL Creatinine (0.5-0.9) mg/dL GFR Calculation Glucose (65-115) mg/dL Calculated Osmolal ity (285-295) mOsm/k g Lactate (0.5-2.2) mmol/L Calcium (8.5-10.5) mg/dL Total Bilirubin (0.15-1.2) mg/dL AST (0-32) U/L ALT (0-33) U/L Alkaline Phosphata se (35-105) IU/L Troponin T Baselin e 38 H (0-10) ng/L Troponin T 120 Min [place] (0-10) ng/L Delta Troponin T (0-10) ABS# NT-Pro-B Natriuret Pep (0-450) pg/mL Total Protein (6.6-8.7) g/dL Albumin (3.5-5.2) g/dL Globulin (1.3-4.6) g/dL Urine Color Yellow (Yellow) Urine Appearance Clear (CLEAR) Urine pH 5 (5-7) Ur Specific Gravit y 1.020 (1.005-1.030) Urine Protein Neg (Negative) Urine Glucose (UA) Norm (Normal) Urine Ketones Negative (Negative) Urine Blood Neg (Negative) Urine Nitrate Negative (Negative) Urine Bilirubin Neg (Negative) Urine Urobilinogen Norm (Negative) mg/dL Ur Leukocyte Jada ase Trace H (Negative) Urine RBC 0-4 H (0-2) /hpf Urine WBC 25-40 H (0-5) /hpf Ur Squamous Epith Cells 0-4 H (0-5) /hpf Amorphous Sediment Not Reportable Urine Bacteria 2+ H (NONE) /hpf Hyaline Casts 0-4 H /lpf Urine Mucus Trace /hpf 02/27/21 Range/Units 21:13 WBC (4.0-10.0) 10^3/ uL RBC (4.1-5.3) 10^6/u L Hgb (11.5-15.3) g/dL Hct (37.0-47.0) % MCV (81-99) fL MCH (28.0-34.0) pg MCHC (30.0-36.0) g/dL RDW (12.1-15.1) % Plt Count (130-400) 10^3/c mm MPV (7.4-10.4) fL Neut % (Auto) % Lymph % (Auto) % [place] % (Auto) % Eos % (Auto) % Baso % (Auto) % Neut # (Auto) (1.8-7.7) 10^3/u L Lymph # (Auto) (0.8-4.8) 10^3/u L [place] # (Auto) (0.2-0.9) 10^3/u L Eos # (Auto) (0.0-0.8) 10^3/u L Baso # (Auto) (0.0-0.1) 10^3/u L Nucleated RBC % (a uto) % Nucleated RBCs # /100WBC ESR (0-15) mm/hr Sodium (136-145) mmol/L Potassium (3.5-5.1) mmol/L Chloride (98-107) mmol/L Carbon Dioxide (22-29) mmol/L Anion Gap (5-19) BUN (8-23) mg/dL Creatinine (0.5-0.9) mg/dL GFR Calculation Glucose (65-115) mg/dL Calculated Osmolal ity (285-295) mOsm/k g Lactate (0.5-2.2) mmol/L Calcium (8.5-10.5) mg/dL Total Bilirubin (0.15-1.2) mg/dL AST (0-32) U/L ALT (0-33) U/L Alkaline Phosphata se (35-105) IU/L Troponin T Baselin e (0-10) ng/L Troponin T 120 Min [place] 39.12 H (0-10) ng/L Delta Troponin T 1.12 (0-10) ABS# NT-Pro-B Natriuret Pep (0-450) pg/mL Total Protein (6.6-8.7) g/dL Albumin (3.5-5.2) g/dL Globulin (1.3-4.6) g/dL Urine Color (Yellow) Urine Appearance (CLEAR) Urine pH (5-7) Ur Specific Gravit y (1.005-1.030) Urine Protein (Negative) Urine Glucose (UA) (Normal) Urine Ketones (Negative) Urine Blood (Negative) Urine Nitrate (Negative) Urine Bilirubin (Negative) Urine Urobilinogen (Negative) mg/dL Ur Leukocyte Jada ase (Negative) Urine RBC (0-2) /hpf Urine WBC (0-5) /hpf Ur Squamous Epith Cells (0-5) /hpf Amorphous Sediment Urine Bacteria (NONE) /hpf Hyaline Casts /lpf Urine Mucus /hpf Discharge Plan Discharge Patient Disposition: Admitted As Inpatient Admit Provider: Spencer Nelson Clinical Impression: Weakness generalized, UTI (urinary tract infection) Condition: Stable Coding Level of Care Code ED Respiratory Manager for [place]
[2021-02-28] VITALS (11 sets, daily range): BP systolic 102–148; BP diastolic 44–72; PULSE 63–73; RESP 17–20; TEMP 36.3–36.9; O2SAT 95–98
--- NOTE | 2021-02-28 00:36 | ECG_ITS ---
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 Measurements Intervals [place] Rate: 68 P: 91 MT: 186 QRS: 11 QRSD: 101 T: 39 QT: 385 QTc: 411 Interpretive Statements SINUS RHYTHM Compared to ECG 02/27/2021 20:17:52 No significant changes Electronically Signed On 03-01-2021 12:20:24 CDT by Frances Muse M.D. [id number]
[2021-02-28 01:54] LABS: Estmated Average Glucose 174; Hemoglobin A1C 7.7 % (4.0-6.0)
[2021-02-28] MEDS: enoxaparin 40 mg/0.4 mL Syringe SUBCUT (03:00)
[2021-02-28] MEDS: predniSONE 10 mg Tablet PO ×2 (03:00→09:04)
[2021-02-28 05:54] LABS: Basophils % 0.5 %; Hematocrit 41.3 % (37.0-47.0); Hemoglobin 12.8 g/dL (11.5-15.3); Lymphocytes # 0.5 10^3/uL (0.8-4.8); Lymphocytes % 6.4 %; Mean Corpuscular Hemoglobin 29.2 pg (28.0-34.0); Mean Corpuscular Volume 94.3 fL (81-99); Mean Platelet Volume 10.7 fL (7.4-10.4); Monocytes % 0.5 %; Neutrophils # 7.64 10^3/uL (1.8-7.7); Neutrophils % 91.6 %; Nucleated Red Blood Cells % 0 %; Platelet Count 298 10^3/cmm (130-400); Red Blood Count 4.38 10^6/uL (4.1-5.3); Red Cell Distribution Width 13.6 % (12.1-15.1); White Blood Count 8.3 10^3/uL (4.0-10.0)
[2021-02-28 06:18] LABS: Glucose Point of Care 271 mg/dL (70-110)
[2021-02-28] MEDS: pantoprazole DR 40 mg Tablet PO (06:25)
[2021-02-28] MEDS: lisinopril 20 mg Tablet PO (06:25)
[2021-02-28] MEDS: levothyroxine 100 mcg Tablet PO (06:25)
[2021-02-28 06:28] LABS: Thyroid Stimulating Hormone 3.93 uIU/mL (0.27-4.20)
--- NOTE | 2021-02-28 10:14 | CTR_ITS ---
PROCEDURE INFORMATION: Exam: CT Lumbar Spine Without Contrast Exam date and time: 02/28/2021 10:26 AM Age: 75 years old Clinical indication: Low back pain; Additional info: Left lower extremity weakness TECHNIQUE: Imaging protocol: Computed tomography images of the lumbar spine without contrast. Radiation optimization: All CT scans at this facility use at least one of these dose optimization techniques: automated exposure control; mA and/or kV adjustment per patient size (includes targeted exams where dose is matched to clinical indication); or iterative reconstruction. COMPARISON: No relevant prior studies available. RADIATION DOSE METRICS: Total DLP (mGy-cm): 1955.63 FINDINGS: Vertebrae: No spondylolisthesis No pars defect. No fracture. . Severe multilevel facet hypertrophic changes Severe diffuse degenerative disc disease reflected as severe decrease in disc space height and anterior endplate osteophytosis. Vacuum disc phenomenon diffusely Calcified annular disc protrusions throughout much of the lumbar spine Moderate central canal narrowing T12-L1. Moderate central canal narrowing L2-L3, L3-L4. Severe central canal narrowing L4-L5 and L5-S1 CT/CT lumbar spine wo con* [id number] IMPRESSION: Severe diffuse degenerative disc disease with severe central canal narrowing at multiple levels. Radiation Dose CTDIVOL = (mGy): DLP = 1955.63 (mGy-cm)
--- NOTE | 2021-02-28 10:14 | CTR_ITS ---
PROCEDURE INFORMATION: Exam: CT Head Without Contrast Exam date and time: 02/28/2021 10:26 AM Age: 75 years old Clinical indication: Weakness, extremity; Left; Additional info: Left sided weakness TECHNIQUE: Imaging protocol: Computed tomography of the head without contrast. Radiation optimization: All CT scans at this facility use at least one of these dose optimization techniques: automated exposure control; mA and/or kV adjustment per patient size (includes targeted exams where dose is matched to clinical indication); or iterative reconstruction. COMPARISON: No relevant prior studies available. RADIATION DOSE METRICS: Total DLP (mGy-cm): 941.08 FINDINGS: Brain: No intracranial hemorrhage, edema or other acute abnormalities are seen in the brain. There is patchy decreased white matter density consistent with chronic small vessel white matter ischemia. There is moderate generalized chronic atrophy. Cerebral ventricles: No ventriculomegaly. Bones/joints: Unremarkable. No acute fracture. Paranasal sinuses: Visualized sinuses are unremarkable. No fluid levels. Mastoid air cells: Visualized mastoid air cells are well aerated. Soft tissues: Unremarkable. CT/CT head wo con* [id number] IMPRESSION: 1. No acute intracranial abnormality. 2. Moderate chronic atrophy with chronic white matter ischemic changes. Radiation Dose CTDIVOL = (mGy): DLP = 941.08 (mGy-cm)
--- NOTE | 2021-02-28 10:28 | PC.CHAP ---
Pastoral Care Encounter/Spiritual Assessment Type of Contact [] Declined experimental psychologist visit [] Patient/Family/Request visit [] Outpatient visit [] Follow-up visit [] Physician referral [] Code/Alert [XX] Routine visit [] Staff referral [] Actively dying [XX] Patient sleeping [] Family support [] [] Out of room [] Palliative care [] [XX] Receiving care in room [] Pre-surgical visit [] Trauma [] Long length of stay [] ICU visit [] Other: Relational/Emotional Strength [] Patient feels connected with others/family/visitors/staff [] Distress [] Loneliness/isolation [] Abandonment Spirituality of Patient [] Person of Kaitlin [] Attends Taoist of their Kaitlin [] Believes in Prayer [] Reads Bible or Cheondoism materials [] There are Spiritual issues to be addressed Manager Program Interventions [] Prayer [] Active listening [] Non-anxious presence [] Spiritual/emotional support [] Crisis/trauma care [] Spiritual counseling [] Bereavement support [] Provided bereavement packet [] Provided Bible/devotional materials [] Provided toy/stuffed animal, coloring book to patient or family member [] Provided Communion [] Anointing/[place] [] Salvation [] Completed spiritual assessment [] Other: Impact on Illness or Injury [] Angry [] Fearful [] Anxious [] Often cries [] Exhaustion [] Unable to work [] Unable to attend yarsani [] Unable to walk/stand [] Unable to read [] Unable to drive [] Unable to eat/drink [] Unable to sleep [] Unable to be with family [] Patient intubated [] Other: Summary: 2 attempts to visit were made. On one attempt when doctor was in room, experimental psychologist noticed pt crying. Manager Program returned to room to visit pt but pt had lights off and was preparing to rest. Time spent with patient
[2021-02-28 11:56] LABS: Glucose Point of Care 264 mg/dL (70-110)
--- NOTE | 2021-02-28 12:26 | PM.PN ---
Subjective Subjective: Interval history: Patient was seen this morning, she is alert to person, to place, to time, she tells me that she has difficulty ambulating for the last 2 days, she has pain in her left lower extremity, but she cannot bear weight, she is not sure why, no facial droop, no slurring of her speech, no paresthesias, no nausea, no vomiting, no new falls, no new injuries Vitals/I&O/Wt Last Vital Signs Temp 97.4 F L 02/28/21 11:18 Pulse 67 02/28/21 11:18 Resp 20 H 02/28/21 11:18 BP 148/72 02/28/21 11:18 Pulse Ox 96 02/28/21 11:18 02/27/21 02/28/21 02/28/21 22:59 06:59 14:59 Intake Total 1050 / 1050 300 / 300 Output Total 350 / 350 Balance 1050 / 1050 -350 / 700 300 / 300 Weight last 48 hrs Weight 74.843 kg Physical Exam Const: COMMON NORMALS: no acute distress, patient oriented x3 and alert ORIENTATION/CONSCIOUSNESS: Yes awake, Yes oriented to person, Yes oriented to place and Yes oriented to time Neck/C-Spine: COMMON NORMALS: no JVD Chest: COMMONS NORMALS: normal inspection of the chest Resp: COMMON NORMALS: normal respiratory effort, No retractions, No use of accessory muscles and clear to auscultation bilaterally AUSCULTATION: clear to auscultation bilaterally Cardio: COMMON NORMALS: no JVD, regular rate, regular rhythm, S1 normal heart sound present and S2 normal heart sound present RATE: regular rate RHYTHM: regular rhythm HEART SOUNDS: S1 normal heart sound present and S2 normal heart sound present GI: COMMON NORMALS: Normal to inspection, nondistended, normoactive bowel sounds present, Soft to palpation, non-tender and No hepatosplenomegaly present PALPATION: Yes Soft to palpation and Yes No hepatosplenomegaly present Extremity: COMMON NORMALS: no pedal edema Neuro: COMMON NORMALS: patient oriented x3, CN's II-XII intact bilaterally, moves all extremities and no sensory deficits noted SENSORIUM/ORIENTATION: Yes alert, Yes oriented to person, Yes oriented to place and Yes oriented to time COORDINATION/BALANCE: [id number] test normal and No [id number] test normal COORDINATION: [id number]-kj-[id number] test normal and szhi-vi-[id number] test abnormal OTHER: Left lower extremity strength 3 out of 5 compared to 5 and 5 on the right Left upper extremity strength 4-5 Coumadin 5-5 on the right Data : 02/28/21 05:05 02/27/21 19:00 A&P Assessment and plan (1) Acute CVA (cerebrovascular accident): -Trouble walking for the last 48 hours -Left lower extremity strength 3 out of 5, left upper extremity strength 4 out of 5 -She tells me that she has had this weakness for over 48 hours -No other focal neurologic deficits no slurring of speech, no facial droop, no other paralysis no paresthesias -NIH stroke scale 3, out of TPA window, out of endovascular retrieval window -It is hard to discern if patient's symptoms are related to a CVA or its weakness related to her chronic pain in her polymyalgia rheumatica, and she has significant pain in her left knee, left hip, significant joint pains -Certainly patient is UTI, polymyalgia rheumatica could be playing a role -But given the focal nature of her symptoms, I am highly suspicious for stroke -CT of the head was negative for any acute bleed -CT of the lumbar spine showed severe diffuse degenerative disc disease with severe central canal narrowing at multiple levels -Blood pressure 148/72, pulse 67, EKG sinus rhythm PLAN: -Start aspirin 81 mg, Plavix 75 mg, atorvastatin 80 mg -CT angiogram of the head and neck ordered, cardiac echo -We will consider MRI of the brain -Neurochecks, NIH stroke scales -Gentle IV hydration -Telemetry monitoring -PT OT, speech therapy -Allow for permissive hypertension, treat systolic blood pressure greater than 220, or diastolic blood pressure greater than 120 -Continue to monitor clinical status -Full code -Lovenox for DVT prophylaxis Status: Acute (2) UTI (urinary tract infection): Continue Rocephin, follow urine cultures Status: Acute (3) Hypothyroidism: TSH within normal limits, continue levothyroxine Status: Acute (4) Chronic pain disorder: Status: Chronic (5) PMR (polymyalgia rheumatica): Start prednisone 10 mg daily Status: Chronic (6) Type 2 diabetes mellitus with diabetic neuropathy, unspecified: Status: Chronic Additional A&P Information Essential hypertension: Hold lisinopril Type 2 diabetes: Consistent carb diet Moderate sliding scale, currently 7.7 Full code DVT prophylaxis Lovenox Physical therapy evaluation At home she uses a cane for ambulation Attestations Medical Necessity Statement*: Patient requires hospitalization for concerns for acute CVA, PMR, UTI, inpatient, greater than 2 midnights Coding Level of Care Code 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
--- NOTE | 2021-02-28 12:28 | USR_ITS ---
PROCEDURE INFORMATION: Exam: US Duplex Bilateral Extracranial Arteries Exam date and time: 02/28/2021 1:09 PM Age: 75 years old Clinical indication: Generalized weakness. CVA. TECHNIQUE: Imaging protocol: Real-time Duplex ultrasound scan of the bilateral carotid and vertebral arteries combining goldman scale, color Doppler and spectral waveform analysis. Bilateral exam. COMPARISON: CT head wo con* [id number] 02/28/2021 10:48 AM FINDINGS: There is mild heterogeneous atherosclerotic plaque in the carotid bulbs and internal carotid arteries bilaterally. RIGHT: The peak systolic velocity within the proximal common carotid artery is 88 cm/s. The peak systolic velocity within the mid common carotid artery is 94 cm/s. The peak systolic velocity within the distal common carotid artery is 72 cm/s. The peak systolic velocity within the proximal internal carotid artery is 75 cm/s. The peak systolic velocity within the mid internal carotid artery is 62 cm/s. The peak systolic velocity within the distal internal carotid artery is 77 cm/s. The peak systolic velocity within the vertebral artery is 44 cm/s. Anterograde blood flow is seen in the vertebral artery. LEFT: The peak systolic velocity within the proximal common carotid artery is 79 cm/s. The peak systolic velocity within the mid common carotid artery is 82 cm/s. The peak systolic velocity within the distal common carotid artery is 85 cm/s. The peak systolic velocity within the proximal internal carotid artery is 63 cm/s. The peak systolic velocity within the mid internal carotid artery is 64 cm/s. The peak systolic velocity within the distal internal carotid artery is 68 cm/s. The peak systolic velocity within the vertebral artery is 34 cm/s. Anterograde blood flow is seen in the vertebral artery. US/CV carotid duplex BI* [id number] IMPRESSION: 1. There is mild heterogeneous atherosclerotic plaque in the carotid bulbs and internal carotid arteries bilaterally. 2. No hemodynamically significant stenosis is identified. REFERENCES: SRU CRITERIA. The degree of internal carotid artery stenosis is based on criteria defined by the Society of Radiologists in Ultrasound (SRU). Normal is no stenosis. Mild is less than 50% stenosis. Moderate is 50-69% stenosis. Severe is greater than 69% stenosis to near occlusion. Near occlusion is a markedly narrowed lumen. Total occlusion is no detectable patent lumen.
--- NOTE | 2021-02-28 12:28 | CTR_ITS ---
PROCEDURE INFORMATION: Exam: CT Angiography Head With Contrast, Arteriography Exam date and time: 02/28/2021 5:45 PM Age: 75 years old Clinical indication: Weakness; Prior surgery; Surgery date: 6+ months; Surgery type: C-sp. Thyroid; Patient HX: C/O difficulty ambulating; Additional info: CVA TECHNIQUE: Imaging protocol: Computed tomography angiography of the head with contrast. Exam focused on the arteries. 3D rendering (Not supervised by radiologist): MIP and/or 3D reconstructed images were created by the technologist. Radiation optimization: All CT scans at this facility use at least one of these dose optimization techniques: automated exposure control; mA and/or kV adjustment per patient size (includes targeted exams where dose is matched to clinical indication); or iterative reconstruction. Contrast material: OMNI 350; Contrast volume: 95 ml; Contrast route: INTRAVENOUS (IV); COMPARISON: CT head wo con* [id number] 02/28/2021 10:48 AM RADIATION DOSE METRICS: Total DLP (mGy-cm): 2197.39 FINDINGS: ANTERIOR CIRCULATION: Right internal carotid artery: Unremarkable. Intracranial segment is patent with no significant stenosis. No aneurysm. Right middle cerebral artery: Unremarkable. No occlusion or significant stenosis. No aneurysm. Right anterior cerebral artery: Unremarkable. No occlusion or significant stenosis. No aneurysm. Left internal carotid artery: Unremarkable. Intracranial segment is patent with no significant stenosis. No aneurysm. Left middle cerebral artery: Unremarkable. No occlusion or significant stenosis. No aneurysm. Left anterior cerebral artery: Unremarkable. No occlusion or significant stenosis. No aneurysm. POSTERIOR CIRCULATION: Right vertebral artery: Unremarkable. No occlusion or significant stenosis. No aneurysm. Left vertebral artery: Unremarkable. No occlusion or significant stenosis. No aneurysm. Basilar artery: Unremarkable. No occlusion or significant stenosis. No aneurysm. Right posterior cerebral artery: Unremarkable. No occlusion or significant stenosis. No aneurysm. Left posterior cerebral artery: Unremarkable. No occlusion or significant stenosis. No aneurysm. Brain: No definite mass, mass effect, or midline shift. There is moderate cerebral atrophy. Cerebral ventricles: No ventriculomegaly. Bones/joints: Unremarkable. No acute fracture. Soft tissues: Unremarkable. IMPRESSION: No large vessel stenosis or occlusion. PROCEDURE INFORMATION: Exam: CT Angiography Neck With Contrast Exam date and time: 02/28/2021 5:45 PM Age: 75 years old Clinical indication: Weakness; Prior surgery; Surgery date: 6+ months; Surgery type: C-sp. Thyroid; Patient HX: C/O difficulty ambulating; Additional info: CVA TECHNIQUE: Imaging protocol: Computed tomography angiography of the neck with contrast. 3D rendering (Not supervised by radiologist): MIP and/or 3D reconstructed images were created by the technologist. Radiation optimization: All CT scans at this facility use at least one of these dose optimization techniques: automated exposure control; mA and/or kV adjustment per patient size (includes targeted exams where dose is matched to clinical indication); or iterative reconstruction. Contrast material: OMNI 350; Contrast volume: 95 ml; Contrast route: INTRAVENOUS (IV); COMPARISON: CT head wo con* [id number] 02/28/2021 10:48 AM RADIATION DOSE METRICS: Total DLP (mGy-cm): 2197.39 FINDINGS: Right common carotid artery: No stenosis. No dissection or occlusion. Right internal carotid artery: Small volume calcified plaque in the proximal right internal carotid artery with mild stenosis less than 50%. No dissection. Right external carotid artery: No occlusion or stenosis of the origin. Right vertebral artery: Focal calcified plaque in the proximal right vertebral artery with mild stenosis. Difficult to grade the severity. Left common carotid artery: No stenosis. No dissection or occlusion. Left internal carotid artery: Small volume of calcified plaque in the proximal left internal carotid artery with mild stenosis less than 50%. No dissection. Left external carotid artery: No occlusion or stenosis of the origin. Left vertebral artery: No stenosis. No dissection or occlusion. Bones/joints: The cervical spine demonstrates marked degenerative changes at multiple levels. Cervical spine fusion anteriorly at C5-C6. Intervertebral disc spacer device present. Soft tissues: Normal. No significant soft tissue swelling. CT/CT angio headneck* [id number] IMPRESSION: 1. Less than 50% stenosis in the carotid arteries. 2. No vascular occlusion in the neck. REFERENCES: NASCET CRITERIA. The degree of internal carotid artery stenosis is based on NASCET criteria. Normal is no stenosis. Mild is less than 50% stenosis. Moderate is 50-69% stenosis. Severe is 70% to 99% stenosis. Total occlusion is no detectable patent lumen. Radiation Dose CTDIVOL = (mGy): DLP = 2197.39~2197.39 (mGy-cm)
--- NOTE | 2021-02-28 12:28 | USCV_ITS ---
Sellers Jaclyn Age: 75 Gender: F : 1945 Exam Date: 02/28/2021 15:38 Ordering Phys: Oleg Hughes MD Technologist: Elsa Causey Exam Location: [facility] [place] Indication: CVA BP: 148 / 72 HR: 64 Rhythm: Sinus Technical Quality: Technically difficult study MEASUREMENTS (Male / Female) Normal Values 2D ECHO LV Diastolic Diameter PLAX 3.6 cm 4.2 - 5.9 / 3.9 - 5.3 cm LV Systolic Diameter PLAX 2.1 cm LV Chamber Size 3.6 cm IVS Diastolic Thickness 1.9 cm 0.6 - 1.0 / 0.6 - 0.9 cm IVS Systolic Thickness 1.7 cm LVPW Diastolic Thickness 1.3 cm 0.6 - 1.0 / 0.6 - 0.9 cm LVPW Systolic Thickness 1.8 cm RV Chamber Size 2.9 cm LVOT Diameter 1.8 cm LV Ejection Fraction 2D Teich 73.9 % LV Ejection Fraction MOD 2C 56.0 % LV Ejection Fraction 2C AL 55.9 % LA Diameter 2.7 cm LA Width 2.0 cm LA Height 5.3 cm RA Width 2.4 cm RA Height 4.0 cm Aorta at Sinotubular Diameter 2.4 cm M-MODE LV Diastolic Diameter MM 4.1 cm 4.2 - 5.9 / 3.9 - 5.3 cm LV Systolic Diameter MM 2.4 cm LV Ejection Fraction MM Teich 72.4 % IVS Diastolic Thickness MM 1.3 cm 0.6 - 1.0 / 0.6 - 0.9 cm IVS Systolic Thickness MM 1.6 cm LVPW Diastolic Thickness MM 1.1 cm 0.6 - 1.0 / 0.6 - 0.9 cm LVPW Systolic Thickness MM 1.6 cm RV Diastolic Diameter MM 1.9 cm Aortic Annulus Diameter 2.9 cm LA Ao Ratio MM 1.0 MV E Point Septal Separation 1.1 cm DOPPLER AV Peak Velocity 156.0 cm/s LVOT Peak Velocity 118.0 cm/s AV Area Cont Eq vti 2.0 cm squared AV Area Cont Eq pk 2.0 cm squared MV Area PHT 3.1 cm squared Mitral E to A Ratio 0.9 MV E' Velocity 45.0 cm/s Mitral E to MV E' Ratio 11.2 Mitral E to LV E' Lateral Ratio 12.9 Mitral E to LV E' Septal Ratio 10.0 TV Peak E Velocity 87.0 cm/s Right Atrial Pressure 3.0 mmHg PV Peak Velocity 63.0 cm/s RV Acceleration Time 0.1 s RV Ejection Time 0.3 s RV AcT/ET 0.3 FINDINGS Left Ventricle Normal left ventricular cavity size. Normal left ventricular systolic function. Left ventricular ejection fraction is estimated at 55-60 %. Although no diagnostic regional wall motion abnormality could be identified this possibility cannot be completly excluded. Normal diastolic function. Right Ventricle Normal right ventricular size and systolic function. Right Atrium Normal right atrial size. Right atrial pressure estimated at 3 mm Hg. Left Atrium Normal left atrial size. Mitral Valve Structurally normal mitral valve. No mitral valve stenosis. No significant mitral valve regurgitation. Aortic Valve No aortic valve stenosis. No aortic valve regurgitation. Tricuspid Valve Tricuspid valve not well visualized. Pulmonic Valve Pulmonic valve not well visualized. No pulmonary valve stenosis. No significant pulmonary valve regurgitation. Pericardium No pericardial effusion. Aorta Normal size aortic root and ascending aorta. Normal sized inferior vena cava. CONCLUSIONS 1. This is a technically difficult study. 2. Normal left ventricular cavity size. Normal left ventricular systolic function. Left ventricular ejection fraction is estimated at 55-60 %. Although no diagnostic regional wall motion abnormality could be identified this possibility cannot be completly excluded. Normal diastolic function. 3. No signoficant valvular abnormality. 4. No prior similar studies to compare. Frances Muse MD (Electronically Signed) Final Date: 01 Mar 2021 09:54 S
[2021-02-28] MEDS: oxyCODONE 5 mg IR Tab/Cap 10 MG PO ×2 (12:35→18:50)
[2021-02-28] MEDS: gabapentin 300 mg Capsule PO ×2 (12:36→18:51)
[2021-02-28 13:47] LABS: Chol HDL Ratio 5.13 mg/dL (0.0-4.40); Cholesterol 246 mg/dL (0-200); HDL Cholesterol 48 mg/dL (60-100); LDL Cholesterol Calculated 180 mg/dL (50-129); LDL HDL Ratio 3.75 RATIO (0.00-3.22); Triglycerides 91 mg/dL (0-150)
[2021-02-28] MEDS: atorvastatin 40 mg Tablet 80 MG PO (14:06)
[2021-02-28] MEDS: clopidogrel 75 mg Tablet PO (14:07)
[2021-02-28] MEDS: aspirin 81 mg EC Tablet PO (14:07)
[2021-02-28] MEDS: sodium chloride 0.9% 1,000 ML 75 ML IV (16:19)
[2021-02-28 17:18] LABS: Glucose Point of Care 203 mg/dL (70-110)
[2021-02-28] MEDS: iohexol 350 mg/mL 100 mL Btl IV (18:10)
[2021-02-28] MEDS: insulin glargine 100 units/1 mL 10 UNIT SUBCUT (20:18)
[2021-02-28] MEDS: cefTRIAXone 1,000 MG in sodium chloride 0.9% (plus) 50 ML 100 MG IV (20:20)
[2021-02-28 20:47] LABS: Glucose Point of Care 283 mg/dL (70-110)
[2021-03-01] VITALS (7 sets, daily range): BP systolic 102–138; BP diastolic 51–67; PULSE 53–61; RESP 16–18; TEMP 36.6–37; O2SAT 94–97
[2021-03-01] MEDS: enoxaparin 40 mg/0.4 mL Syringe SUBCUT (00:41)
[2021-03-01 05:57] LABS: Basophils % 0.2 %; Eosinophils % 0.2 %; Hematocrit 34.5 % (37.0-47.0); Hemoglobin 11.2 g/dL (11.5-15.3); Lymphocytes # 1.5 10^3/uL (0.8-4.8); Mean Corpuscular HGB Conc 32.5 g/dL (30.0-36.0); Mean Corpuscular Hemoglobin 30.2 pg (28.0-34.0); Mean Platelet Volume 10.9 fL (7.4-10.4); Monocytes # 0.7 10^3/uL (0.2-0.9); Monocytes % 5.9 %; Neutrophils # 10.08 10^3/uL (1.8-7.7); Nucleated Red Blood Cells % 0 %; Platelet Count 323 10^3/cmm (130-400); Red Blood Count 3.71 10^6/uL (4.1-5.3); Red Cell Distribution Width 13.9 % (12.1-15.1); White Blood Count 12.4 10^3/uL (4.0-10.0)
[2021-03-01] MEDS: levothyroxine 100 mcg Tablet PO (06:09)
[2021-03-01] MEDS: pantoprazole DR 40 mg Tablet PO (06:09)
[2021-03-01] MEDS: gabapentin 300 mg Capsule PO ×2 (06:09→12:46)
[2021-03-01 06:19] LABS: Albumin Level 3.1 g/dL (3.5-5.2); Alkaline Phosphatase 74 IU/L (35-105); Blood Urea Nitrogen 19 mg/dL (8-23); Calcium 8.4 mg/dL (8.5-10.5); Carbon Dioxide 22 mmol/L (22-29); Chloride 106 mmol/L (98-107); Creatinine Clr Calc Pharmacy 59.6276; Globulin 2.9 g/dL (1.3-4.6); Glucose 111 mg/dL (65-115); Magnesium 2.1 mg/dL (1.7-2.3); Osmolality Calculated 291 mOsm/kg (285-295); Phosphorus 3.2 mg/dL (2.5-4.5); Sodium 139 mmol/L (136-145); Total Bilirubin 0.3 mg/dL (0.15-1.2)
[2021-03-01 06:23] LABS: Alanine Aminotransferase 8 U/L (0-33); Anion Gap 15.3 (5-19); Aspartate Amino Transferase 20 U/L (0-32); Potassium 4.3 mmol/L (3.5-5.1)
[2021-03-01 06:35] LABS: Glucose Point of Care 129 mg/dL (70-110)
[2021-03-01] MEDS: sodium chloride 0.9% 1,000 ML 75 ML IV (08:12)
[2021-03-01] MEDS: clopidogrel 75 mg Tablet PO (08:14)
[2021-03-01] MEDS: oxyCODONE 5 mg IR Tab/Cap 10 MG PO (08:14)
[2021-03-01] MEDS: predniSONE 10 mg Tablet PO (08:14)
--- NOTE | 2021-03-01 10:29 | P.DS_ITS ---
Discharge Providers Date of Admission: 02/28/21 12:26 Date of Discharge: March 01, 2021 Attending Provider at Admission: Spencer Nelson MD Attending Provider at Discharge: Oleg Hughes MD Primary Care Provider: Leonardo Loaiza MD Diagnoses at Discharge Discharge Diagnosis (1) Acute CVA (cerebrovascular accident): Status: Acute (2) UTI (urinary tract infection): Status: Acute (3) Hypothyroidism: Status: Acute (4) Chronic pain disorder: Status: Chronic (5) PMR (polymyalgia rheumatica): Status: Chronic (6) Type 2 diabetes mellitus with diabetic neuropathy, unspecified: Status: Chronic Reason for Visit Reason for Visit: GENERALIZED WEAKNESS Hospital Course Hospital Course This is a 75-year-old female with a past medical history of insulin-dependent type 2 diabetes mellitus, hypothyroidism, hypertension, chronic pain, bilateral knee pain, chronic back pain, is seen at the pain clinic, history of PMR recently primary care had suddenly stopped steroids, who presents to [facility] due to concerns for confusion and generalized weakness Patient was admitted to [facility] for confusion, and weakness secondary to UTI, PMR, acute CVA/TIA Acute CVA (cerebrovascular accident): -Trouble walking for the last 48 hours -Left lower extremity strength 3 out of 5, left upper extremity strength 4 out of 5 on my examination on the morning of 02/28/2021, symptoms improved in the afternoon, on day of discharge strength was equal bilaterally, had chronic left knee pain limiting some strength, but overall back to baseline, ambulating with physical therapy -She tells me that she has had this weakness for over 48 hours -No other focal neurologic deficits no slurring of speech, no facial droop, no other paralysis no paresthesias -NIH stroke scale 3, out of TPA window, out of endovascular retrieval window -It is hard to discern if patient's symptoms are related to a CVA or its weakness related to her chronic pain in her polymyalgia rheumatica, and she has significant pain in her left knee, left hip, significant joint pains -Certainly patient is UTI, polymyalgia rheumatica could be playing a role -But given the focal nature of her symptoms, I am highly suspicious of stroke/TIA -CT of the head was negative for any acute bleed -CT of the lumbar spine showed severe diffuse degenerative disc disease with severe central canal narrowing at multiple levels -Blood pressure 148/72, pulse 67, EKG sinus rhythm -CTA of the head and neck showed no large vessel stenosis or occlusion, less than 50% stenosis of the carotid arteries, no vascular occlusion in the neck -Echocardiogram showed EF of 55 to 60%, normal diastolic dysfunction -Received PT OT as inpatient, speech therapy, neurochecks as inpatient, blood pressure monitored as inpatient -Received aspirin statin as inpatient -Patient improved back to baseline, ambulating with complaints of knee pain, but no other concerns, no slurring of speech, no facial droop, no focal neurologic deficits -Discharged on aspirin, statin, with follow-up with cardiology as outpatient -We will need to follow-up with primary care for blood pressure titration, blood pressure have been reasonable here For urinary tract infection was managed with Rocephin as inpatient, on discharge was alert oriented x3, answering all questions appropriate, discharged on Keflex for 5 days For polymyalgia rheumatica, diagnosed out in [place], her primary care physician suddenly stopped her prednisone due to concerns for osteoporotic fractures and bone thinning, she was restarted on prednisone 10 mg daily, her symptomatology improved, discharged on prednisone 10 mg daily with close follow-up with primary care provider and rheumatology as outpatient, consider lowering the dose in a month, tapering dose Physical Exam Const: COMMON NORMALS: no acute distress, patient oriented x3 and alert ORIENTATION/CONSCIOUSNESS: Yes oriented to person and Yes oriented to place HENMT: COMMON NORMALS: normocephalic HEAD & SCALP: normocephalic Neck/C-Spine: COMMON NORMALS: no JVD Resp: COMMON NORMALS: normal respiratory effort, No retractions, No use of accessory muscles and clear to auscultation bilaterally AUSCULTATION: clear to auscultation bilaterally Cardio: COMMON NORMALS: no JVD, regular rate, regular rhythm, S1 normal heart sound present and S2 normal heart sound present RATE: regular rate RHYTHM: regular rhythm HEART SOUNDS: S1 normal heart sound present and S2 normal heart sound present GI: COMMON NORMALS: Normal to inspection, nondistended, normoactive bowel sounds present, Soft to palpation, non-tender, No hepatosplenomegaly present, no masses and no bruits PALPATION: Yes Soft to palpation and Yes No hepatosplenomegaly present Extremity: COMMON NORMALS: capillary refill normal and no clubbing, cyanosis or edema Neuro: COMMON NORMALS: patient oriented x3, CN's II-XII intact bilaterally, moves all extremities, no focal motor deficits and no sensory deficits noted SENSORIUM/ORIENTATION: Yes alert, Yes oriented to person and Yes oriented to place Psych: COMMON NORMALS: mental status grossly normal Discharge Data Data Completed and Pending: Completed Studies During Hospitalization Category Date Time Status CT angio headneck * 32335/07823 Rout ine Cat Scan 02/28/21 12:[address] head wo con* 7 0450 Stat Cat Scan 02/28/21 10:[address] lumbar spine w o con* 14995 Stat Cat Scan 02/28/21 10:14 Completed XR chest 1V nola ble [id number] Urgent Exams 02/27/21 18:01 Completed XR elbow RT 2V 73 070 Stat Exams 02/27/21 18:02 Completed XR shoulder RT mi n 2V* [id number] Stat Exams 02/27/21 18:02 Completed XR wrist RT 2V 73 100 Stat Exams 02/27/21 18:02 Completed CV carotid duplex BI* [id number] Routine Ultrasound 02/28/21 12:28 Completed CV echo complete* [id number] Routine Ultrasound 02/28/21 12:28 Completed Pending at discharge Category Date Time Status Complete Blood Co unt w/Auto AM LABS Lab 03/02/21 04:00 Ordered Complete Blood Co unt w/Auto AM LABS Lab 03/03/21 04:00 Ordered Comprehensive Met abolic Panel AM LA BS Lab 03/02/21 04:00 Ordered Comprehensive Met abolic Panel AM LA BS Lab 03/03/21 04:00 Ordered Magnesium AM LABS Lab 03/02/21 04:00 Ordered Magnesium AM LABS Lab 03/03/21 04:00 Ordered Phosphorus AM LAB S Lab 03/02/21 04:00 Ordered Phosphorus AM LAB S Lab 03/03/21 04:00 Ordered Urine Culture Sta t Lab 02/27/21 19:11 Received Labs from last 24 hours 03/01/21 03/01/21 03/01/21 06:28 05:02 05:02 WBC 12.4 H RBC 3.71 L Hgb 11.2 L Hct 34.5 L MCV 93.0 MCH 30.2 MCHC 32.5 RDW 13.9 Plt Count 323 MPV 10.9 H Neut % (Auto) 81.0 Lymph % (Auto) 12.0 [place] % (Auto) 5.9 Eos % (Auto) 0.2 Baso % (Auto) 0.2 Neut # (Auto) 10.08 H Lymph # (Auto) 1.5 [place] # (Auto) 0.7 Eos # (Auto) 0.0 Baso # (Auto) 0.0 Nucleated RBC % (a uto) 0 Nucleated RBCs # 0.0 Sodium 139 Potassium 4.3 Chloride 106 Carbon Dioxide 22 Anion Gap 15.3 BUN 19 Creatinine 0.7 GFR Calculation Not Reportable Glucose 111 POC Glucose 129 H Calculated Osmolal ity 291 Calcium 8.4 L Phosphorus 3.2 Magnesium 2.1 Total Bilirubin 0.3 AST 20 ALT 8 Alkaline Phosphata se 74 Total Protein 6.0 L Albumin 3.1 L Globulin 2.9 Triglycerides Cholesterol LDL Cholesterol, C alc HDL Cholesterol LDL/HDL Ratio Cholesterol/HDL Ra ana 02/28/21 02/28/21 02/28/21 20:43 15:44 11:13 WBC RBC Hgb Hct MCV MCH MCHC RDW Plt Count MPV Neut % (Auto) Lymph % (Auto) [place] % (Auto) Eos % (Auto) Baso % (Auto) Neut # (Auto) Lymph # (Auto) [place] # (Auto) Eos # (Auto) Baso # (Auto) Nucleated RBC % (a uto) Nucleated RBCs # Sodium Potassium Chloride Carbon Dioxide Anion Gap BUN Creatinine GFR Calculation Glucose POC Glucose 283 H 203 H 264 H Calculated Osmolal ity Calcium Phosphorus Magnesium Total Bilirubin AST ALT Alkaline Phosphata se Total Protein Albumin Globulin Triglycerides Cholesterol LDL Cholesterol, C alc HDL Cholesterol LDL/HDL Ratio Cholesterol/HDL Ra ana 02/28/21 05:05 WBC RBC Hgb Hct MCV MCH MCHC RDW Plt Count MPV Neut % (Auto) Lymph % (Auto) [place] % (Auto) Eos % (Auto) Baso % (Auto) Neut # (Auto) Lymph # (Auto) [place] # (Auto) Eos # (Auto) Baso # (Auto) Nucleated RBC % (a uto) Nucleated RBCs # Sodium Potassium Chloride Carbon Dioxide Anion Gap BUN Creatinine GFR Calculation Glucose POC Glucose Calculated Osmolal ity Calcium Phosphorus Magnesium Total Bilirubin AST ALT Alkaline Phosphata se Total Protein Albumin Globulin Triglycerides 91 Cholesterol 246 H LDL Cholesterol, C alc 180 H HDL Cholesterol 48 L LDL/HDL Ratio 3.75 H Cholesterol/HDL Ra ana 5.13 H Vitals: Last Vital Signs Temp 98.6 F 03/01/21 07:35 Pulse 61 03/01/21 07:35 Resp 16 03/01/21 08:14 BP 113/51 03/01/21 07:35 Pulse Ox 97 03/01/21 08:14 Discharge Plan Discharge Patient Disposition: Home Condition: Stable Prescriptions: New prednisone 10 mg Tablet 10 mg PO DAILY 30 Days Qty: 30 RF: 0 aspirin 81 mg Tablet,Delayed Release (Dr/Ec) 81 mg PO Q24H 30 Days Qty: 30 RF: 0 atorvastatin 40 mg Tablet 40 mg PO Q24H 30 Days Qty: 30 RF: 0 cephalexin 500 mg capsule 500 mg PO Q6H 5 Days Qty: 20 RF: 0 Continued sertraline 50 mg tablet 50 mg PO Q24H Qty: 90 RF: 0 oxycodone 10 mg tablet 10 mg PO QID PRN (Reason: pain) 30 Days Qty: 120 RF: 0 (DME) Accu-Chek Lauryn Plus test strp Strip See Rx Instructions .ROUTE .MEDSUPPLY Qty: 100 RF: 11 lisinopril 20 mg tablet 20 mg PO DAILY@0700 RF: 0 temazepam 15 mg capsule 15 mg PO BEDTIME@2000 RF: 0 gabapentin 300 mg capsule 300 mg PO TID@06,12,18 RF: 0 Prilosec OTC 20 mg tablet,delayed release (DR/EC) 20 mg PO DAILY@0600 RF: 0 Januvia 100 mg tablet 100 mg PO DAILY@0600 RF: 0 Lantus Solostar U-100 Insulin 100 unit/mL (3 mL) insulin pen 10 unit SUBCUT BEDTIME@1999 RF: 0 levothyroxine 100 mcg capsule 100 mcg PO DAILY@0600 RF: 0 Discontinued Advil 200 mg Tablet 200 - 400 mg PO Q6H PRN (Reason: Pain) RF: 0 Discharge Orders: Discharge Order (Routine); Ordered 03/01/21 Ordered By: Oleg Hughes Referrals: Marco Antonio Smiley MD [Physician] - 7-10 days (PMR) Rosa Mccloud MD [Physician] - 1 month (cva follow up) Leonardo Loaiza MD [Primary Care Provider] - Patient Instructions: Opioid Safety Activity Restrictions/Additional Instructions: -Please follow-up with rheumatology for polymyalgia rheumatica, tapering dose of steroids -Please continue aspirin, statin for TIA/CVA -Follow-up with neurology -If you have recurrent strokelike symptoms please come back to emergency room -Lazarus for UTI Discharge Attestations Time Spent in Discharge Care*: greater than 30 min Quality Metrics Clinical Quality Measures During this hospital stay, did patient experience: Stroke Contraindication to Antithrombotic: Antithrombotic prescribed Contraindication to Anticoagulation: Overlap treatment not indicated Contraindication to Statin: Statin prescribed Coding Level of Care Code Acute [facility] note Diagnoses Acute CVA (cerebrovascular accident) I63.9 UTI (urinary tract infection) N39.0 Hypothyroidism E03.9 Chronic pain disorder G89.4 PMR (polymyalgia rheumatica) M35.3 Type 2 diabetes mellitus with diabetic neuropathy, unspecified E11.40
[2021-03-01 11:25] LABS: Glucose Point of Care 193 mg/dL (70-110)
[2021-03-01] MEDS: aspirin 81 mg EC Tablet PO (12:46)
[2021-03-01] MEDS: atorvastatin 40 mg Tablet 80 MG PO (12:46)
== END 2021-03-01 14:48 | disposition home health service (06) | DRG 65 ==
LOC: ER 17:42 → MEDSURG 23:06
PROVIDERS: Admitting Provider Internal Medicine; Emergency Provider Family Medicine; PCP Family Medicine Adult Medicine; Visit Provider Family Medicine
DX: I63.9 Cerebral infarction, unspecified (principal); N39.0 Urinary tract infection, site not specified; M35.3 Polymyalgia rheumatica; R29.703 NIHSS score 3; R53.1 Weakness; R41.0 Disorientation, unspecified; R26.2 Difficulty in walking, not elsewhere classified; M51.36 Other intervertebral disc degeneration, lumbar region; M48.061 Spinal stenosis, lumbar region without neurogenic claudication; M79.605 Pain in left leg; I10 Essential (primary) hypertension; F41.9 Anxiety disorder, unspecified; G89.29 Other chronic pain; E89.0 Postprocedural hypothyroidism; E11.40 Type 2 diabetes mellitus with diabetic neuropathy, unspecified; Z79.4 Long term (current) use of insulin; Z90.710 Acquired absence of both cervix and uterus; Z87.891 Personal history of nicotine dependence
CPT/HCPCS: 36415; 36416; 70450; 70496; 70498; 71045; 72131; 73030; 73070; 73100; 80053; 80061; 81001; 82962; 83036; 83605; 83735; 83880; 84100; 84443; 84484; 85025; 85651; 87086; 92523; 92610; 93005; 93306; 93880; 96365; 96372; 96375; 97110; 97116; 97162; 97165; 97535; 99285; G0378; J0696; J1650; J1815 ×2; J2930; J7030; J7512; Q9967

== ENCOUNTER → 2021-03-10 13:16 | Outpatient (BNVA) | payer MEDICARE, SELFPAY | PROVIDERS: PCP Family Medicine Adult Medicine; Visit Provider Anesthesiology | DX: M51.36 Other intervertebral disc degeneration, lumbar region (principal); M47.812 Spondylosis without myelopathy or radiculopathy, cervical region; M54.9 Dorsalgia, unspecified; M15.9 Polyosteoarthritis, unspecified; Z79.891 Long term (current) use of opiate analgesic | CPT/HCPCS: 99214 ==

== ENCOUNTER → 2021-04-29 13:56 | Outpatient (BNVA) | payer MEDICARE, SELFPAY | PROVIDERS: PCP Family Medicine Adult Medicine; Visit Provider Anesthesiology | DX: G89.29 Other chronic pain (principal); M51.36 Other intervertebral disc degeneration, lumbar region; M47.812 Spondylosis without myelopathy or radiculopathy, cervical region; M25.511 Pain in right shoulder; M54.9 Dorsalgia, unspecified; M15.9 Polyosteoarthritis, unspecified; Z79.891 Long term (current) use of opiate analgesic; Z87.891 Personal history of nicotine dependence | CPT/HCPCS: 99214 ==

== ENCOUNTER → 2021-06-02 10:20 | Outpatient (BNVA) | payer MEDICARE, SELFPAY | PROVIDERS: PCP Family Medicine Adult Medicine; Visit Provider Nurse Practitioner Family | DX: Z20.822 Contact with and (suspected) exposure to COVID-19 (principal) | CPT/HCPCS: 87635 ==

== ENCOUNTER 2021-06-03 19:47 | Inpatient (IN) | payer MEDICARE, SELFPAY ==
[2021-06-03] VITALS (7 sets, daily range): BP systolic 117–177; BP diastolic 52–81; PULSE 72–77; RESP 18–22; TEMP 37.7; O2SAT 85–99; BMI 29.5
--- NOTE | 2021-06-03 20:16 | XRR_ITS ---
PROCEDURE INFORMATION: Exam: XR Chest Exam date and time: 06/03/2021 8:16 PM Age: 75 years old Clinical indication: Shortness of breath; Additional info: Hypoxia TECHNIQUE: Imaging protocol: XR of the chest. Views: 1 view. COMPARISON: CR XR chest 1V portable [id number] 02/27/2021 6:04 PM FINDINGS: Lungs: Visualized portions of the lungs are clear. Pleural spaces: Unremarkable. No pleural effusion. No pneumothorax. Heart/Mediastinum: Heart is within normal limits of size. Bones/joints: There are degenerative changes in the thoracic spine and both shoulders. There is stable postoperative changes in the lower cervical spine. XR/XR chest 1V portable [id number] IMPRESSION: No acute infiltrate.
--- NOTE | 2021-06-03 20:18 | ECG_ITS ---
[facility] Test Date: 2021-06-03 Pat Name: Jaclyn Sellers Department: Room: Gender: Female Strategic Consultant: : 1945 Requested By: Trinity Negrete Order Number: [id number] Reading MD: TANIKA WU Measurements Intervals [place] Rate: 71 P: 69 WI: 166 QRS: -11 QRSD: 82 T: 43 QT: 345 QTc: 375 Interpretive Statements SINUS RHYTHM WITH OCCASIONAL ECTOPIC PREMATURE COMPLEXES LOW QRS VOLTAGE IN PRECORDIAL LEADS [QRS DEFLECTION < 1.0 mV IN CHEST LEADS] POSSIBLE ANTERIOR MYOCARDIAL INFARCTION [30 ms Q WAVE IN V3/V4, OR R < 0.2 mV IN V4], OF INDETERMINATE AGE WARNING: DATA QUALITY MAY AFFECT INTERPRETATION Compared to ECG 02/28/2021 00:30:57 Low QRS voltage now present Myocardial infarct finding now present Electronically Signed On 06-04-2021 21:23:24 CDT by TANIKA WU [email or web address]
[2021-06-03 20:43] LABS: Basophils # 0.1 10^3/uL (0.0-0.1); Basophils % 0.6 %; Eosinophils # 0.4 10^3/uL (0.0-0.8); Lymphocytes # 2.7 10^3/uL (0.8-4.8); Lymphocytes % 20.5 %; Mean Corpuscular Hemoglobin 29.3 pg (28.0-34.0); Mean Corpuscular Volume 94.6 fL (81-99); Mean Platelet Volume 11.6 fL (7.4-10.4); Monocytes % 7.5 %; Neutrophils % 67.2 %; Nucleated Red Blood Cells % 0 %; Platelet Count 210 10^3/cmm (130-400); Red Blood Count 4.44 10^6/uL (4.1-5.3); Red Cell Distribution Width 15.4 % (12.1-15.1); White Blood Count 13.3 10^3/uL (4.0-10.0)
[2021-06-03 20:45] LABS: D Dimer 3.13 ug/mIFEU (0-0.59)
[2021-06-03 20:48] LABS: Alanine Aminotransferase 13 U/L (0-33); Albumin Level 3.4 g/dL (3.5-5.2); Alkaline Phosphatase 104 IU/L (35-105); Blood Urea Nitrogen 11 mg/dL (8-23); Carbon Dioxide 25 mmol/L (22-29); Chloride 100 mmol/L (98-107); Globulin 2.2 g/dL (1.3-4.6); Glucose 118 mg/dL (65-115); Osmolality Calculated 282 mOsm/kg (285-295); Sodium 136 mmol/L (136-145); Total Bilirubin 0.9 mg/dL (0.15-1.2); Total Protein 5.6 g/dL (6.6-8.7)
[2021-06-03 20:49] LABS: Lactic Sepsis W/Reflex 0.8 mmol/L (0.5-2.2)
[2021-06-03 21:00] LABS: Aspartate Amino Transferase 21 U/L (0-32)
[2021-06-03 21:10] LABS: SARS Covid-2 Antigen Negative (Negative)
--- NOTE | 2021-06-03 21:17 | W.ED.COVID ---
HPI - COVID General: Chief Complaint: COVID symptoms Stated Complaint: covid + Time Seen by Provider: 06/03/21 20:28 Source: patient Mode of arrival: EMS Limitations: altered mental status Triage information: Has fever, cough or shortness of breath. Exposure to COVID + person last 14 days History of Present Illness: HPI Narrative: Patient is a 75-year-old female who presents to the emergency department with complaints of fever, shortness of breath, body aches, generalized weakness that has been ongoing for about 2 days. She reports exposure to someone with COVID-19 and the person who is her son-in-law is currently on admission at this facility for COVID-19. Because she feels she is getting worse she is here for evaluation. She was noted to be hypoxic with oxygen saturation at 85% on room air MD complaint: reported COVID exposure Prior covid testing: no COVID 19 common symptoms: positive fever(s), chills, cough, dyspnea, fatigue, body aches, headache(s) and nasal congestion; negative loss of sense of smell and/or taste, throat pain, nausea, vomiting, diarrhea or chest tightness COVID 19 other sytmptoms: positive requiring oxygen; negative chest pressure, chest pain, pleuritic pain, respiratory distress, cyanosis, lethargy, confusion, new neurological complaints or other concerning symptoms Onset (ago): day(s) (2) Pertinent comorbid conditions: diabetes and hypertension Treatment prior to arrival: none COVID Results: SARS-CoV-2 Antigen (Rapid) Negative (Negative) 06/03/21 20:18 06/03/21 Nasal/Oral Coronavirus 2019 PCR Not detected 06/03/21 21:43 06/03/21 Review of Systems General: Reports: 10 or more systems reviewed and unremarkable except in HPI and below Const: Reports: fever(s), chills, body aches and fatigue ENMT: Reports: nasal congestion; Denies: throat pain Card: Denies: chest pain Resp: Reports: dyspnea GI: Denies: nausea, vomiting or diarrhea Neuro: Reports: headache(s); Denies: confusion [facility] ED PFSH: Medical History (Updated 06/18/21 @ 11:36 by Tiffanie Fischer MD, [facility] [place]) Anxiety disorder, unspecified Bacterial conjunctivitis Cervical spine arthritis Chronic intermittent steroid use Chronic low back pain Chronic pain disorder Chronic right shoulder pain CVD (cerebrovascular disease) DDD (degenerative disc disease), lumbar Elevated WBC count Encounter for long-term opiate analgesic use Enrolled in chronic care management HTN (hypertension) Hypothyroidism Knee pain, bilateral Left anterior knee pain 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 Long-term current use of opiate analgesic Opioid contract exists Pain management contract signed PMR (polymyalgia rheumatica) Subluxation of C5-C6 cervical vertebrae Total body pain Type 2 diabetes mellitus with diabetic neuropathy, unspecified Surgical History H/O total thyroidectomy H/O: hysterectomy History of appendectomy Previous back surgery Social History Smoking and tobacco status: former smoker Second hand smoke exposure: No Alcohol intake: never Caregiver/support person: Yes (DAUGHTER THE BEST THAT SHE CAN) Lives independently: Yes Housing: House Pets and animals: Yes Pets & animals: dog(s) History of recent travel: No Physical Exam Const: COMMON NORMALS: no acute distress, average body habitus, patient oriented x3, no limitations, healthy appearing and well nourished HENMT: COMMON NORMALS: normocephalic, atraumatic and moist oral mucous membranes HEAD & SCALP: normocephalic and atraumatic Neck/C-Spine: COMMON NORMALS: no meningeal signs and no JVD Resp: COMMON NORMALS: normal respiratory effort, No retractions, No use of accessory muscles, clear to auscultation bilaterally and percussion normal AUSCULTATION: clear to auscultation bilaterally PERCUSSION: percussion normal Cardio: COMMON NORMALS: no JVD, regular rate, regular rhythm, S1 normal heart sound present, S2 normal heart sound present, No gallops present (Cardio), No clicks present (Cardio), No murmurs present (Cardio), No rub (Cardio) and Peripheral pulses 2+ throughout RATE: regular rate RHYTHM: regular rhythm HEART SOUNDS: S1 normal heart sound present and S2 normal heart sound present PERIPHERAL PULSES: Peripheral pulses 2+ throughout GI: COMMON NORMALS: Normal to inspection, nondistended, normoactive bowel sounds present, Soft to palpation, non-tender, No hepatosplenomegaly present, no masses and no bruits PALPATION: Yes Soft to palpation and Yes No hepatosplenomegaly present Extremity: COMMON NORMALS: normal to inspection, full ROM, capillary refill normal, no calf tenderness and no pedal edema Neuro: COMMON NORMALS: patient oriented x3 SENSORIUM/ORIENTATION: Yes somnolent (has taken her night meds including a benzo and a narcotic) MENINGEAL SIGNS: Yes no meningeal signs Course Consultations: Consultation #1: Discussed the patient with Dr. Mejia, hospitalist and she kindly accepted this patient to her service. Time: 23:00 Vital Signs: Vital signs: Vital Signs Temperature 98.2 F 06/05/21 16:10 Pulse Rate 69 06/05/21 16:10 Respiratory Rate 16 06/05/21 16:10 Blood Pressure 112/78 06/05/21 16:10 Pulse Oximetry 96 06/05/21 16:10 MDM - COVID MDM Narrative: Medical decision making narrative: 75-year-old female patient who presents to the emergency department with shortness of breath, recent Covid exposure and lethargy. Evaluation in the emergency department shows that she was hypoxic and requiring oxygen. She was also diagnosed with pulmonary embolism with mild right heart strain so she is admitted to the cardiac stepdown unit for further evaluation and management including anticoagulation. Other than hypoxia the rest of her vital signs are stable and I do not think she requires thrombolysis or thrombectomy. Clot burden is also small. Medical Records: Attestation: I reviewed the patient's medical records. Lab Data: Attestation: I reviewed the patient's lab results. Labs: Lab Results 06/03/21 06/03/21 06/03/21 Range/Units 20:18 20:18 20:18 WBC 13.3 H (4.0-10.0) 10^3/ uL RBC 4.44 (4.1-5.3) 10^6/u L Hgb 13.0 (11.5-15.3) g/dL Hct 42.0 (37.0-47.0) % MCV 94.6 (81-99) fL MCH 29.3 (28.0-34.0) pg MCHC 31.0 (30.0-36.0) g/dL RDW 15.4 H (12.1-15.1) % Plt Count 210 (130-400) 10^3/c mm MPV 11.6 H (7.4-10.4) fL Neut % (Auto) 67.2 % Lymph % (Auto) 20.5 % [place] % (Auto) 7.5 % Eos % (Auto) 3.0 % Baso % (Auto) 0.6 % Neut # (Auto) 8.90 H (1.8-7.7) 10^3/u L Lymph # (Auto) 2.7 (0.8-4.8) 10^3/u L [place] # (Auto) 1.0 H (0.2-0.9) 10^3/u L Eos # (Auto) 0.4 (0.0-0.8) 10^3/u L Baso # (Auto) 0.1 (0.0-0.1) 10^3/u L Nucleated RBC % (a uto) 0 % Nucleated RBCs # 0.0 /100WBC D-Dimer 3.13 H (0-0.59) ug/mIFE U Specimen Type Sample Site ABG pH (7.35-7.45) ABG pCO2 (35-45) mmHg ABG pO2 (80.0-100.0) mmH g ABG HCO3 (22-26) mmol/L ABG Base Excess (-2.0-2.0) mmol/ L Enrique Test Hematocrit (37-47) % O2 Delivery Device O2 Liters/Min % Director Of Human Resources ID Sodium 136 (136-145) mmol/L Potassium 5.0 (3.5-5.1) mmol/L Chloride 100 (98-107) mmol/L Carbon Dioxide 25 (22-29) mmol/L Anion Gap 16.0 (5-19) BUN 11 (8-23) mg/dL Creatinine 0.5 (0.5-0.9) mg/dL GFR Calculation Not Reportable Glucose 118 H (65-115) mg/dL Calculated Osmolal ity 282 L (285-295) mOsm/k g Lactic Acid (0.5-2.2) mmol/L Calcium 8.0 L (8.5-10.5) mg/dL Total Bilirubin 0.9 (0.15-1.2) mg/dL AST 21 (0-32) U/L ALT 13 (0-33) U/L Alkaline Phosphata se 104 (35-105) IU/L Total Protein 5.6 L (6.6-8.7) g/dL Albumin 3.4 L (3.5-5.2) g/dL Globulin 2.2 (1.3-4.6) g/dL Procalcitonin (0-0.5) ng/mL Nasal/Oral COVID-1 9 PCR SARS-CoV-2 Ag (Rap id) (Negative) 06/03/21 06/03/21 06/03/21 Range/Units 20:18 20:18 20:18 WBC (4.0-10.0) 10^3/ uL RBC (4.1-5.3) 10^6/u L Hgb (11.5-15.3) g/dL Hct (37.0-47.0) % MCV (81-99) fL MCH (28.0-34.0) pg MCHC (30.0-36.0) g/dL RDW (12.1-15.1) % Plt Count (130-400) 10^3/c mm MPV (7.4-10.4) fL Neut % (Auto) % Lymph % (Auto) % [place] % (Auto) % Eos % (Auto) % Baso % (Auto) % Neut # (Auto) (1.8-7.7) 10^3/u L Lymph # (Auto) (0.8-4.8) 10^3/u L [place] # (Auto) (0.2-0.9) 10^3/u L Eos # (Auto) (0.0-0.8) 10^3/u L Baso # (Auto) (0.0-0.1) 10^3/u L Nucleated RBC % (a uto) % Nucleated RBCs # /100WBC D-Dimer (0-0.59) ug/mIFE U Specimen Type Sample Site ABG pH (7.35-7.45) ABG pCO2 (35-45) mmHg ABG pO2 (80.0-100.0) mmH g ABG HCO3 (22-26) mmol/L ABG Base Excess (-2.0-2.0) mmol/ L Enrique Test Hematocrit (37-47) % O2 Delivery Device O2 Liters/Min % Director Of Human Resources ID Sodium (136-145) mmol/L Potassium (3.5-5.1) mmol/L Chloride (98-107) mmol/L Carbon Dioxide (22-29) mmol/L Anion Gap (5-19) BUN (8-23) mg/dL Creatinine (0.5-0.9) mg/dL GFR Calculation Glucose (65-115) mg/dL Calculated Osmolal ity (285-295) mOsm/k g Lactic Acid 0.8 (0.5-2.2) mmol/L Calcium (8.5-10.5) mg/dL Total Bilirubin (0.15-1.2) mg/dL AST (0-32) U/L ALT (0-33) U/L Alkaline Phosphata se (35-105) IU/L Total Protein (6.6-8.7) g/dL Albumin (3.5-5.2) g/dL Globulin (1.3-4.6) g/dL Procalcitonin 0.08 (0-0.5) ng/mL Nasal/Oral COVID-1 9 PCR SARS-CoV-2 Ag (Rap id) Negative (Negative) 06/03/21 06/03/21 Range/Units 21:28 21:43 WBC (4.0-10.0) 10^3/ uL RBC (4.1-5.3) 10^6/u L Hgb (11.5-15.3) g/dL Hct (37.0-47.0) % MCV (81-99) fL MCH (28.0-34.0) pg MCHC (30.0-36.0) g/dL RDW (12.1-15.1) % Plt Count (130-400) 10^3/c mm MPV (7.4-10.4) fL Neut % (Auto) % Lymph % (Auto) % [place] % (Auto) % Eos % (Auto) % Baso % (Auto) % Neut # (Auto) (1.8-7.7) 10^3/u L Lymph # (Auto) (0.8-4.8) 10^3/u L [place] # (Auto) (0.2-0.9) 10^3/u L Eos # (Auto) (0.0-0.8) 10^3/u L Baso # (Auto) (0.0-0.1) 10^3/u L Nucleated RBC % (a uto) % Nucleated RBCs # /100WBC D-Dimer (0-0.59) ug/mIFE U Specimen Type Arterial Sample Site Brachial, right ABG pH 7.40 (7.35-7.45) ABG pCO2 48.0 H (35-45) mmHg ABG pO2 93.1 (80.0-100.0) mmH g ABG HCO3 29.3 H (22-26) mmol/L ABG Base Excess 3.5 H (-2.0-2.0) mmol/ L Enrique Test N/a Hematocrit 41.7 (37-47) % O2 Delivery Device Nc O2 Liters/Min 2.0 % Director Of Human Resources ID Harkr Sodium (136-145) mmol/L Potassium (3.5-5.1) mmol/L Chloride (98-107) mmol/L Carbon Dioxide (22-29) mmol/L Anion Gap (5-19) BUN (8-23) mg/dL Creatinine (0.5-0.9) mg/dL GFR Calculation Glucose (65-115) mg/dL Calculated Osmolal ity (285-295) mOsm/k g Lactic Acid (0.5-2.2) mmol/L Calcium (8.5-10.5) mg/dL Total Bilirubin (0.15-1.2) mg/dL AST (0-32) U/L ALT (0-33) U/L Alkaline Phosphata se (35-105) IU/L Total Protein (6.6-8.7) g/dL Albumin (3.5-5.2) g/dL Globulin (1.3-4.6) g/dL Procalcitonin (0-0.5) ng/mL Nasal/Oral COVID-1 9 PCR Not detected SARS-CoV-2 Ag (Rap id) (Negative) Imaging Data: CTA Chest: Attestation: I personally reviewed and interpreted this imaging study as follows: Radiologist's impression: Manoj [address] [id number] Scan ReportSigned with Addenda Patient: Jaclyn Sellers AUnit #: [id number]: [id number]#:[id number]/Sex: 75 / FADM Date: 06/03/21Loc: ERRoom/Bed:Attending Dr: Ordering Provider/Ordering MD: Tiffanie Fischer MD, [facility] [place] Date of Service: 06/03/21 Procedure(s): CT angio chest PE protcl [id number] Accession Number(s): [id number] Report Number: [id number]/CT angio chest PE protcl [id number] THIS REPORT CONTAINS FINDINGS THAT MAY BE CRITICAL TO PATIENT CARE. The findings were verbally communicated by me to TIFFANIE FISCHER via telephone conference at 10:59 PM CDT on 06/03/2021. The findings were acknowledged and understood. Radiation Dose CTDIVOL = (mGy): DLP = 553.3 (mGy-cm) Addendum Dictated By: Kevin CarvajalAddendum Signed By: Tay Carvajal Date/Time:06/03/21 2301Addendum Cosigned By: PROCEDURE INFORMATION: Exam: CTA Chest With Contrast Exam date and time: 06/03/2021 9:16 PM Age: 75 years old Clinical indication: Shortness of breath; Prior surgery; Surgery type: Thyroidectomy; Patient HX: Sob/elevated ddimer/covid+; Additional info: SOB, elevated d-dimer TECHNIQUE: Imaging protocol: Computed tomographic angiography of the chest with contrast. 3D rendering (Not supervised by radiologist): MIP and/or 3D reconstructed images were created by the technologist. Radiation optimization: All CT scans at this facility use at least one of these dose optimization techniques: automated exposure control; mA and/or kV adjustment per patient size (includes targeted exams where dose is matched to clinical indication); or iterative reconstruction. Contrast material: OMNI 350; Contrast volume: 68 ml; Contrast route: INTRAVENOUS (IV); COMPARISON: CR (CHEST, ) 06/03/2021 8:36 PM RADIATION DOSE METRICS: Total DLP (mGy-cm): 553.3 FINDINGS: Pulmonary arteries: There is a segmental branch pulmonary embolus in the right middle lobe. Small clot burden. Aorta: Mild atherosclerotic disease of the aorta without aneurysm. No aortic dissection. Lungs: Unremarkable. No consolidation. No masses. Pleural spaces: Unremarkable. No pneumothorax. No pleural effusion. Heart: Atherosclerotic coronary artery calcifications are present. RV/LV ratio = 0.95.. Lymph nodes: Unremarkable. No enlarged lymph nodes. Gallbladder and bile ducts: There has been a cholecystectomy. Bones/joints: Unremarkable. No acute fracture. Soft tissues: Unremarkable. CT/CT angio chest PE protcl [id number] IMPRESSION: 1. Small burden of acute pulmonary emboli with mild right heart strain. 2. Mild atherosclerotic disease of the aorta without aneurysm. 3. No aortic dissection. 4. Atherosclerotic disease of the coronary arteries. Radiation Dose CTDIVOL = (mGy): DLP = 553.3 (mGy-cm) Dictated By:Tay Carvajal By:Tay Carvajal Date/Time:06/03/212248DD/ 47 CXR: Attestation: I personally reviewed and interpreted this imaging study as follows: Radiologist's impression: [address] [id number] ReportSigned Patient: Jaclyn Sellers AUnit #: [id number]: 1943cct#:[id number]/Sex: 75 / FADM Date: 06/03/21Loc: ERRoom/Bed:Attending Dr: Ordering Provider/Ordering MD: Trinity Negrete MD Date of Service: 06/03/21 Procedure(s): XR chest 1V portable [id number] Accession Number(s): [id number] Report Number: [id number] PROCEDURE INFORMATION: Exam: XR Chest Exam date and time: 06/03/2021 8:16 PM Age: 75 years old Clinical indication: Shortness of breath; Additional info: Hypoxia TECHNIQUE: Imaging protocol: XR of the chest. Views: 1 view. COMPARISON: CR XR chest 1V portable [id number] 02/27/2021 6:04 PM FINDINGS: Lungs: Visualized portions of the lungs are clear. Pleural spaces: Unremarkable. No pleural effusion. No pneumothorax. Heart/Mediastinum: Heart is within normal limits of size. Bones/joints: There are degenerative changes in the thoracic spine and both shoulders. There is stable postoperative changes in the lower cervical spine. XR/XR chest 1V portable [id number] IMPRESSION: No acute infiltrate. Dictated By:Isaura Gold By:Isaura Gold Date/Time:06/03/21D/ 28 EKG Data: EKG 1: Attestation: I personally reviewed and interpreted this EKG as follows: EKG interpretation date: 06/03/21 EKG interpretation time: 21:03 Prior EKG tracings: not available for review Interpretation: Sinus rhythm with occasional premature complexes. Heart rate 71 bpm. Low QRS voltage. No ST changes. COVID Results: SARS-CoV-2 Antigen (Rapid) Negative (Negative) 06/03/21 20:18 06/03/21 Nasal/Oral Coronavirus 2019 PCR Not detected 06/03/21 21:43 06/03/21 Discharge Plan Discharge Patient Disposition: Admitted As Inpatient Admit Provider: Yaima Mejia Clinical Impression: Pulmonary embolism, Suspected severe acute respiratory syndrome coronavirus 2 (SARS-CoV-2) infection, Acute respiratory failure Condition: Stable Discharge Diet: Cardiac Discharge Activity: Resume usual activity Coding Level of Care Code ED Training Manager for Chg Fwd Exam Comprehensive
[2021-06-03 21:39] LABS: Arterial Blood Gas Hematocrit 41.7 % (37-47); Base Excess ABG 3.5 mmol/L (-2.0-2.0); Blood Gas Operator Identificat HARKR; Blood Gas Sample Site Brachial, right; Blood Gas Sample Type Arterial; HCO3 ABG 29.3 mmol/L (22-26); Oxygen Device NC; PO2 ABG 93.1 mmHg (80.0-100.0)
--- NOTE | 2021-06-03 22:20 | PC.NURSE ---
Pt to CT at this time.
[2021-06-03] MEDS: iohexol 350 mg/mL 100 mL Btl IV (22:30)
[2021-06-03] MEDS: enoxaparin 80 mg/0.8 mL Syringe SUBCUT (23:26)
--- NOTE | 2021-06-03 23:38 | PC.NURSE ---
Update called to Uyen foley.
--- NOTE | 2021-06-03 23:52 | PM.HP ---
Providers/Chief Complaint Admitting Physician: Yaima Mejia MD Primary Care Provider: Leonardo Loaiza MD Chief Complaint: dyspnea History of Present Illness Jaclyn Sellers is a 75 year old female with past medical history of insulin-dependent type 2 diabetes mellitus, hypothyroidism, hypertension, recent CVA. She presents to the ER today with c/o fever shortness of breath, and fatigue over the past 4-5 days. + exposure to COVID from her son in law. Initially visited PCP on 06/01- COVID PCR negative from 06/02. Today she was noted to be hypoxic with oxygen saturation at 85% on room air and brought to ER, currently on 2lpm 02 supplementation. Tmax 99.8F. CTA chest showed segmental PE with right heart strain. Review of Systems General: Reports: 10 or more systems reviewed and unremarkable except in HPI and below Const: Denies: fever(s), chills or body aches Eyes: Denies: change in vision, blurry vision or photophobia ENMT: Reports: hoarseness; Denies: throat pain, enlarged tonsils, odynophagia or nasal congestion Card: Denies: chest pain, palpitations, irregular heart rhythm, edema, swelling of feet/ankles, lightheadedness, pre-syncope, dyspnea on exertion or orthopnea Resp: Denies: dyspnea, productive cough, non-productive cough, wheezing, stridor, pain on inspiration, change in phlegm color, hemoptysis or chest congestion GI: Denies: abdominal pain, nausea, vomiting, hematemesis, coffee ground emesis, dysphagia, heartburn, diarrhea, constipation, GI cramping, change in stool character, hematochezia or melena : Denies: flank pain, difficulty voiding, dysuria, urinary frequency, urinary urgency, urinary hesitancy or hematuria Musc: Denies: neck pain, back pain, extremity pain, joint swelling, joint warmth or deformity Neuro: Denies: headache(s), numbness in extremities, weakness in extremities, sensory changes, difficulty walking, frequent falls, dizziness, vertigo, behavioral changes, Slurred speech present or seizure-like activity Psych: Denies: anxiety, depression, suicidal ideation or homicidal ideation Endo: Denies: polyuria, polydipsia, tired all the time, cold intolerance or hot flashes Natan/Lymph: Denies: easy bruising or easy bleeding Medications/Allergies Home Medications Medication Instructions Recorded Confirmed Last Taken Type blood sugar diagnostic #100 each 02/19/21 06/01/21 Unknown Rx Januvia 100 mg PO DAILY@0600 02/27/21 06/01/21 02/27/21 History pen needle, diabetic 32 gauge x #100 ea 03/11/21 06/01/21 Unknown Rx 5/32 lisinopril 20 mg tablet 20 mg PO DAILY@0700 #90 tab 03/16/21 06/01/21 Unknown Rx prednisone 10 mg tablet 10 mg PO DAILY 30 Days #30 tab 03/25/21 06/01/21 Unknown Rx sertraline 50 mg tablet 50 mg PO Q24H #90 tab 03/25/21 06/01/21 Unknown Rx omeprazole 20 mg capsule,delayed See Rx Instructions .ROUTE 04/20/21 06/01/21 Unknown Rx release .COMPLEX #90 capsule insulin glargine 100 unit/mL (3 See Rx Instructions .ROUTE 04/22/21 06/01/21 Unknown Rx mL) subcutaneous pen .COMPLEX #15 milliliter gabapentin 300 mg capsule 300 mg PO QID 30 Days #120 cap 04/29/21 06/01/21 Unknown Rx oxycodone 10 mg tablet 10 mg PO QID 30 Days #120 tab 04/29/21 06/01/21 Unknown Rx oxycodone 10 mg tablet 10 mg PO QID PRN 30 Days #120 tab 04/29/21 06/01/21 Unknown Rx temazepam 15 mg capsule 15 mg PO BEDTIME@2000 30 Days #30 04/29/21 06/01/21 Unknown Rx cap levothyroxine 100 mcg tablet See Rx Instructions .ROUTE 05/25/21 06/01/21 Unknown Rx .COMPLEX #90 tablet Allergies Allergy/AdvReac Type Severity Reaction Status Date / Time baclofen Allergy ADR-Shakine Verified 06/01/21 10:15 ss bupropion [From Wellbutrin] Allergy ADR-Nausea Verified 06/01/21 10:15 celecoxib [From Celebrex] Allergy ALGY-Rash Verified 06/01/21 10:15 codeine Allergy ADR-Dizzine Verified 06/01/21 10:15 ss erythromycin base Allergy ADR-Vomitin Verified 06/01/21 10:15 g leflunomide Allergy Unknown Verified 06/01/21 10:15 pregabalin [From Lyrica] Allergy ALGY-Rash Verified 06/01/21 10:15 Sulfa (Sulfonamide Allergy VOMITING Verified 06/01/21 10:15 Antibiotics) PFSH Acute PFSH: Medical History Anxiety disorder, unspecified Bacterial conjunctivitis Cervical spine arthritis Chronic intermittent steroid use Chronic low back pain Chronic pain disorder Chronic right shoulder pain CVD (cerebrovascular disease) DDD (degenerative disc disease), lumbar Elevated WBC count Encounter for long-term opiate analgesic use Enrolled in chronic care management Enrolled in chronic care management HTN (hypertension) Hypothyroidism Knee pain, bilateral Left anterior knee pain Long-term current use of opiate analgesic Opioid contract exists Pain management contract signed PMR (polymyalgia rheumatica) Subluxation of C5-C6 cervical vertebrae Total body pain Type 2 diabetes mellitus with diabetic neuropathy, unspecified Surgical History H/O total thyroidectomy H/O: hysterectomy History of appendectomy Previous back surgery Social History Smoking and tobacco status: former smoker Second hand smoke exposure: No Alcohol intake: never Caregiver/support person: Yes (DAUGHTER THE BEST THAT SHE CAN) Lives independently: Yes Housing: House Pets and animals: Yes Pets & animals: dog(s) History of recent travel: No Vitals/I&O/Wt Last Vital Signs Temp 99.8 F H 06/03/21 19:56 Pulse 72 06/03/21 23:43 Resp 18 06/03/21 23:43 BP 154/77 06/03/21 23:43 Pulse Ox 98 06/03/21 23:43 Weight last 48 hrs Weight 78.018 kg Physical Exam Narrative: EXAM NARRATIVE: General: No acute distress, AO x3 HEENT: PERRLA, pupils bilaterally equal and reactive, pallors not present Chest: Normal vesicular breath sounds, no added sounds, equal good air entry bilaterally CVS: S1-S2 regular, no murmurs, no tachycardia, no gallops, no rubs Abdomen: Soft, nontender, no organomegaly, bowel sounds present Neuro: No focal deficits, no facial deformity, AO x3, power 5/5 in all limbs Extremities: no cyanosis, clubbing Data : 06/03/21 20:18 06/03/21 20:18 Other Labs: Laboratory Results WBC 13.3 10^3/uL (4.0-10.0) H 06/03/21 20:18 RBC 4.44 10^6/uL (4.1-5.3) 06/03/21 20:18 Hgb 13.0 g/dL (11.5-15.3) 06/03/21 20:18 Hct 42.0 % (37.0-47.0) 06/03/21 20:18 MCV 94.6 fL (81-99) 06/03/21 20:18 MCH 29.3 pg (28.0-34.0) 06/03/21 20:18 MCHC 31.0 g/dL (30.0-36.0) 06/03/21 20:18 RDW 15.4 % (12.1-15.1) H 06/03/21 20:18 Plt Count 210 10^3/cmm (130-400) 06/03/21 20:18 MPV 11.6 fL (7.4-10.4) H 06/03/21 20:18 Neut % (Auto) 67.2 % 06/03/21 20:18 Lymph % (Auto) 20.5 % 06/03/21 20:18 [place]houn % (Auto) 7.5 % 06/03/21 20:18 Eos % (Auto) 3.0 % 06/03/21 20:18 Baso % (Auto) 0.6 % 06/03/21 20:18 Neut # (Auto) 8.90 10^3/uL (1.8-7.7) H 06/03/21 20:18 Lymph # (Auto) 2.7 10^3/uL (0.8-4.8) 06/03/21 20:18 [place]houn # (Auto) 1.0 10^3/uL (0.2-0.9) H 06/03/21 20:18 Eos # (Auto) 0.4 10^3/uL (0.0-0.8) 06/03/21 20:18 Baso # (Auto) 0.1 10^3/uL (0.0-0.1) 06/03/21 20:18 Nucleated RBC % (auto) 0 % 06/03/21 20:18 Nucleated RBCs # 0.0 /100WBC 06/03/21 20:18 D-Dimer 3.13 ug/mIFEU (0-0.59) H 06/03/21 20:18 Specimen Type Arterial 06/03/21 21:28 Sample Site Brachial, right 06/03/21 21:28 ABG pH 7.40 (7.35-7.45) 06/03/21 21:28 ABG pCO2 48.0 mmHg (35-45) H 06/03/21 21:28 ABG pO2 93.1 mmHg (80.0-100.0) 06/03/21 21:28 ABG HCO3 29.3 mmol/L (22-26) H 06/03/21 21:28 ABG Base Excess 3.5 mmol/L (-2.0-2.0) H 06/03/21 21:28 Enrique Test N/a 06/03/21 21:28 Hematocrit 41.7 % (37-47) 06/03/21 21:28 O2 Delivery Device Nc 06/03/21 21:28 O2 Liters/Min 2.0 % 06/03/21 21:28 Slot Machine Mechanic ID Harkr 06/03/21 21:28 Sodium 136 mmol/L (136-145) 06/03/21 20:18 Potassium 5.0 mmol/L (3.5-5.1) 06/03/21 20:18 Chloride 100 mmol/L (98-107) 06/03/21 20:18 Carbon Dioxide 25 mmol/L (22-29) 06/03/21 20:18 Anion Gap 16.0 (5-19) 06/03/21 20:18 BUN 11 mg/dL (8-23) 06/03/21 20:18 Creatinine 0.5 mg/dL (0.5-0.9) 06/03/21 20:18 GFR Calculation Not Reportable 06/03/21 20:18 Glucose 118 mg/dL (65-115) H 06/03/21 20:18 Calculated Osmolality 282 mOsm/kg (285-295) L 06/03/21 20:18 Lactic Acid 0.8 mmol/L (0.5-2.2) 06/03/21 20:18 Calcium 8.0 mg/dL (8.5-10.5) L 06/03/21 20:18 Total Bilirubin 0.9 mg/dL (0.15-1.2) 06/03/21 20:18 AST 21 U/L (0-32) 06/03/21 20:18 ALT 13 U/L (0-33) 06/03/21 20:18 Alkaline Phosphatase 104 IU/L (35-105) 06/03/21 20:18 Total Protein 5.6 g/dL (6.6-8.7) L 06/03/21 20:18 Albumin 3.4 g/dL (3.5-5.2) L 06/03/21 20:18 Globulin 2.2 g/dL (1.3-4.6) 06/03/21 20:18 SARS-CoV-2 Ag (Rapid) Negative (Negative) 06/03/21 20:18 Impressions Chest X-Ray 06/03/21 20:16 IMPRESSION: No acute infiltrate. Chest CTA 06/03/21 21:16 IMPRESSION: 1. Small burden of acute pulmonary emboli with mild right heart strain. 2. Mild atherosclerotic disease of the aorta without aneurysm. 3. No aortic dissection. 4. Atherosclerotic disease of the coronary arteries. Radiation Dose CTDIVOL = (mGy): DLP = 553.3 (mGy-cm) Micro: Microbiology 06/03/21 20:10 Blood Culture - Preliminary Blood SPECIMEN COLLECTED 06/03/21 20:18 Blood Culture - Preliminary Blood SPECIMEN COLLECTED A&P Assessment and plan (1) Pulmonary embolism: Acute PE with right heart strain start lovenox 1mg/kg q12h supplemental 02 to keep sat >92% echocardiogram given findings of right heart strain + covid exposure, recent test negative pcr from 06/02, lungs without gross infiltrates , rpt PCR today pending Status: Acute Additional A&P Information PMR: continue daily prednisone HTN: continue lisinopril DM: insulin sliding scale hypothyroidism: continue levothyroxine Full code DVT ppx: full dose lovenox Attestations Medical Necessity Statement*: >2midnight admission anticipated for management of PE Coding Level of Care Code Acute Box Sealing Machine Catcher for Chg Fwd Diagnoses Pulmonary embolism I26.99
[2021-06-04] VITALS (12 sets, daily range): BP systolic 116–170; BP diastolic 50–92; PULSE 66–81; RESP 12–20; TEMP 36.5–37; O2SAT 90–99
--- NOTE | 2021-06-04 00:08 | PC.NURSE ---
Addendum entered by Tri Pena RN 06/04/21 00:52: Patient was weak and required 2 assist to move from ER bed to bed in room. Original Note: Per report from ED, patient is confused. Upon arrival to floor, patient is lethargic, but when asked questions, answers appropriately. Patient answers correctly to person, place, and time. Bed alarm is set. Patient has been oriented to her room. Patient is able to tell me some of the medications she takes at home, but is not able to tell me all of them and is unable to tell me the dose and frequency. Unable to update med rec at this time.
--- NOTE | 2021-06-04 00:18 | USCV_ITS ---
Jaclyn Sellers Age: 75 Gender: F : 1945 Exam Date: 06/04/2021 06:07 Ordering Phys: Yaima Mejia MD Technologist: Kassie Camacho Exam Location: [facility] – [place] Indication: PE, EVAL FOR RIGHT HEART STRAIN BP: 134 / 55 HR: 78 Rhythm: Sinus Technical Quality: Adequate MEASUREMENTS (Male / Female) Normal Values 2D ECHO LV Diastolic Diameter PLAX 3.7 cm 4.2 - 5.9 / 3.9 - 5.3 cm LV Systolic Diameter PLAX 2.7 cm IVS Diastolic Thickness 1.5 cm 0.6 - 1.0 / 0.6 - 0.9 cm IVS Systolic Thickness 1.9 cm LVPW Diastolic Thickness 1.7 cm 0.6 - 1.0 / 0.6 - 0.9 cm LVPW Systolic Thickness 1.9 cm LVOT Diameter 2.0 cm LV Ejection Fraction 2D Teich 52.8 % LV Ejection Fraction MOD 2C 33.5 % LV Ejection Fraction 2C AL 30.9 % LA Diameter 3.0 cm LA Width 3.1 cm LA Height 4.3 cm RA Width 2.3 cm RA Height 3.3 cm Aorta at Sinotubular Diameter 2.7 cm M-MODE Aortic Annulus Diameter 2.4 cm LA Ao Ratio MM 1.3 FINDINGS Left Ventricle Normal left ventricular cavity size. Normal left ventricular systolic function. No regional wall motion abnormalities. Left ventricular ejection fraction is estimated at 60 %. Right Ventricle Normal right ventricular size. Normal right ventricular systolic function. Right Atrium Left Atrium Mitral Valve Aortic Valve Tricuspid Valve Pulmonic Valve Pericardium Aorta CONCLUSIONS 1-Normal left ventricular cavity size. Normal left ventricular systolic function. No regional wall motion abnormalities. Left ventricular ejection fraction is estimated at 60 %. 2-Normal right ventricular size. Normal right ventricular systolic function. No right ventricle strain noted. 3-Please note that this is a limited study in which Doppler assessment was not performed. Please repeat the study with Doppler assessment of the valves. Most likely valves appear to be normally opening and closing however cannot rule out any regurgitation. 4-There is no pericardial effusion. 5-Due to limited nature of the study cannot compare it with the prior exam. Spencer Mauricio MD (Electronically Signed) Final Date: 04 June 2021 19:12 S
[2021-06-04] MEDS: sertraline 50 mg Tablet PO (05:32)
[2021-06-04] MEDS: lisinopril 20 mg Tablet PO (05:32)
[2021-06-04] MEDS: levothyroxine 100 mcg Tablet PO (05:32)
[2021-06-04 06:58] LABS: Glucose Point of Care 122 mg/dL (70-110)
[2021-06-04] MEDS: gabapentin 300 mg Capsule PO ×4 (08:49→20:41)
[2021-06-04] MEDS: pantoprazole DR 40 mg Tablet PO (08:49)
[2021-06-04] MEDS: predniSONE 10 mg Tablet PO (08:49)
--- NOTE | 2021-06-04 08:57 | P.PN_ITS ---
Subjective Subjective: Interval history: Patient was seen and examined this morning, she was laying in left lateral position, saturating well on 2 L nasal cannula 97%, was not complaining of active shortness of breath or chest pain She was asking if she could be discharged today Echo is pending Vitals/I&O/Wt Last Vital Signs Temp 98.6 F 06/04/21 07:42 Pulse 81 06/04/21 07:42 Resp 19 H 06/04/21 07:42 BP 131/50 06/04/21 07:42 Pulse Ox 90 06/04/21 07:42 06/03/21 06/04/21 06/04/21 22:59 06:59 14:59 Intake Total 200 / 200 Balance 200 / 200 Weight last 48 hrs Weight 81.102 kg Weight 78.018 kg Physical Exam Narrative: EXAM NARRATIVE: elderly female who was saturating well on 2 L nasal cannula 97% No active distress S1, S2 sinus rhythm No murmur appreciated no signs of heart failure Abdomen soft distended with obesity Bilateral breath sounds without adventitious rhonchi or crackles EOMI, PERRLA no neurological deficit Data : 06/03/21 20:18 06/03/21 20:18 Micro: Microbiology 06/03/21 20:10 Blood Culture - Preliminary Blood SPECIMEN COLLECTED 06/03/21 20:18 Blood Culture - Preliminary Blood SPECIMEN COLLECTED A&P Assessment and plan (1) Pulmonary embolism: Status: Acute (2) Acute respiratory failure with hypoxia: Status: Acute Additional A&P Information Acute pulmonary embolism Patient is stating that she is leading a sedentary lifestyle no recent traveling no history of cancer, likely provoked PE I will switch her to Eliquis Echo is pending No active chest pain Requested venous Doppler Acute hypoxic restaurant failure Likely secondary to PE however requiring 1 to 2 L nasal cannula to keep saturation above 95% Covid PCR is pending She is getting steroids for her PMR Hypertension: Currently normotensive Full code Therapeutic Lovenox suffice DVT ppx Attestations Medical Necessity Statement*: Anticipating discharge in next 48hours, echo and PCR pending Time Spent in Patient Care: less than 15 minutes Coding Level of Care Code Acute Tumbling Instructor for Chg Fwd Diagnoses Pulmonary embolism I26.99 Acute respiratory failure with hypoxia J96.01
[2021-06-04 09:52] LABS: Procalcitonin 0.08 ng/mL (0-0.5)
--- NOTE | 2021-06-04 11:21 | PC.CHAP ---
Pastoral Care Encounter/Spiritual Assessment Type of Contact [] Declined detective captain visit [] Patient/Family/Request visit [] Outpatient visit [] Follow-up visit [] Physician referral [] Code/Alert [] Routine visit [] Staff referral [] Actively dying [] Patient sleeping [] Family support [] [] Out of room [] Palliative care [] [] Receiving care in room [] Pre-surgical visit [] Trauma [] Long length of stay [] ICU visit [x] Other: Isolation Relational/Emotional Strength [] Patient feels connected with others/family/visitors/staff [] Distress [] Loneliness/isolation [] Abandonment Spirituality of Patient [] Person of Kaitlin [] Attends Church of their Kaitlin [] Believes in Prayer [] Reads Bible or Mandaeism materials [] There are Spiritual issues to be addressed Preparer Samples And Repairs Interventions [] Prayer [] Active listening [] Non-anxious presence [] Spiritual/emotional support [] Crisis/trauma care [] Spiritual counseling [] Bereavement support [] Provided bereavement packet [] Provided Bible/devotional materials [] Provided toy/stuffed animal, coloring book to patient or family member [] Provided Communion [] Anointing/[place] [] Salvation [] Completed spiritual assessment [] Other: Impact on Illness or Injury [] Angry [] Fearful [] Anxious [] Often cries [] Exhaustion [] Unable to work [] Unable to attend christianity [] Unable to walk/stand [] Unable to read [] Unable to drive [] Unable to eat/drink [] Unable to sleep [] Unable to be with family [] Patient intubated [] Other: Summary Isolation Time spent with patient 10 mins
[2021-06-04 11:53] LABS: Glucose Point of Care 134 mg/dL (70-110)
[2021-06-04 15:46] LABS: Coronavirus Test Green County Not Detected
[2021-06-04] MEDS: oxyCODONE 5 mg IR Tab/Cap 10 MG PO (16:47)
[2021-06-04 16:54] LABS: Glucose Point of Care 153 mg/dL (70-110)
--- NOTE | 2021-06-04 18:13 | PC.NURSE ---
Shift Note Frequent safety and comfort rounds continue. Orders and/or nursing care completed as indicated. Patient monitored for response to intervention and treatment(s). Education provided includes treatment plan and safety precautions. Patient and/or shared services representative receptive to teaching. Will continue to monitor.
[2021-06-04 20:39] LABS: Glucose Point of Care 182 mg/dL (70-110)
[2021-06-04] MEDS: apixaban 5 mg Tablet 10 MG PO (20:41)
[2021-06-04] MEDS: temazepam 15 mg Capsule PO (20:41)
[2021-06-05] VITALS (10 sets, daily range): BP systolic 110–122; BP diastolic 45–80; PULSE 59–69; RESP 16–18; TEMP 36.6–36.8; O2SAT 94–98
[2021-06-05 04:39] LABS: Basophils # 0.1 10^3/uL (0.0-0.1); Basophils % 0.4 %; Eosinophils # 0.2 10^3/uL (0.0-0.8); Hematocrit 37.9 % (37.0-47.0); Hemoglobin 11.8 g/dL (11.5-15.3); Lymphocytes # 2.1 10^3/uL (0.8-4.8); Lymphocytes % 18.6 %; Mean Corpuscular HGB Conc 31.1 g/dL (30.0-36.0); Mean Corpuscular Hemoglobin 29.2 pg (28.0-34.0); Mean Corpuscular Volume 93.8 fL (81-99); Mean Platelet Volume 10.3 fL (7.4-10.4); Monocytes # 0.8 10^3/uL (0.2-0.9); Monocytes % 6.9 %; Neutrophils % 71.2 %; Nucleated Red Blood Cells % 0 %; Platelet Count 225 10^3/cmm (130-400); Red Blood Count 4.04 10^6/uL (4.1-5.3); Red Cell Distribution Width 14.7 % (12.1-15.1); White Blood Count 11.5 10^3/uL (4.0-10.0)
[2021-06-05] MEDS: levothyroxine 100 mcg Tablet PO (06:19)
[2021-06-05] MEDS: sertraline 50 mg Tablet PO (06:19)
[2021-06-05] MEDS: lisinopril 20 mg Tablet PO (06:19)
--- NOTE | 2021-06-05 06:43 | PC.NURSE ---
Shift Note Frequent safety and comfort rounds continue. Orders and/or nursing care completed as indicated. Patient monitored for response to intervention and treatment(s). Education provided includes treatment plan and safety precautions. Patient and/or sales representative jewelry receptive to teaching. Will continue to monitor.
[2021-06-05 07:21] LABS: Glucose Point of Care 77 mg/dL (70-110)
--- NOTE | 2021-06-05 07:30 | PC.NURSE ---
Patient resting in bed. O2 on at 2L/NC Patient assited to set up in chair for breakfast. Patient needed assistance to stand. She states her knees are shot .
[2021-06-05] MEDS: gabapentin 300 mg Capsule PO (08:04)
[2021-06-05] MEDS: predniSONE 10 mg Tablet PO (08:04)
[2021-06-05] MEDS: apixaban 5 mg Tablet 10 MG PO (08:04)
[2021-06-05] MEDS: pantoprazole DR 40 mg Tablet PO (08:04)
[2021-06-05] MEDS: oxyCODONE 5 mg IR Tab/Cap 10 MG PO (08:13)
--- NOTE | 2021-06-05 09:00 | PC.NURSE ---
Patient assisted to bedside commode.
--- NOTE | 2021-06-05 09:50 | PC.NURSE ---
oxygen removed for home O2 eval. Patient resting in bed.
--- NOTE | 2021-06-05 10:32 | PC.CHAP ---
Pastoral Care Encounter/Spiritual Assessment Type of Contact [] Declined integrated circuit ic layout designer visit [] Patient/Family/Request visit [] Outpatient visit [] Follow-up visit [] Physician referral [] Code/Alert [] Routine visit [] Staff referral [] Actively dying [] Patient sleeping [] Family support [] [] Out of room [] Palliative care [] [] Receiving care in room [] Pre-surgical visit [] Trauma [] Long length of stay [] ICU visit [XX] Other: PATIENT IN ISOLATION Relational/Emotional Strength [] Patient feels connected with others/family/visitors/staff [] Distress [] Loneliness/isolation [] Abandonment Spirituality of Patient [] Person of Kaitlin [] Attends Jainism of their Kaitlin [] Believes in Prayer [] Reads Bible or Orthodoxy materials [] There are Spiritual issues to be addressed Tow Driver Interventions [] Prayer [] Active listening [] Non-anxious presence [] Spiritual/emotional support [] Crisis/trauma care [] Spiritual counseling [] Bereavement support [] Provided bereavement packet [] Provided Bible/devotional materials [] Provided toy/stuffed animal, coloring book to patient or family member [] Provided Communion [] Anointing/[place] [] Salvation [] Completed spiritual assessment [] Other: Impact on Illness or Injury [] Angry [] Fearful [] Anxious [] Often cries [] Exhaustion [] Unable to work [] Unable to attend samaritan [] Unable to walk/stand [] Unable to read [] Unable to drive [] Unable to eat/drink [] Unable to sleep [] Unable to be with family [] Patient intubated [] Other: Summary Time spent with patient
[2021-06-05 11:30] LABS: Glucose Point of Care 138 mg/dL (70-110)
--- NOTE | 2021-06-05 16:41 | PM.DCS ---
Discharge Providers Date of Admission: 06/04/21 00:19 Date of Discharge: June 05, 2021 Attending Provider at Admission: Yaima Mejia MD Attending Provider at Discharge: Spencer Nelson MD Primary Care Provider: Leonardo Loaiza MD Diagnoses at Discharge Discharge Diagnosis (1) Pulmonary embolism: Status: Acute Reason for Visit Reason for Visit: dyspnea Hospital Course Hospital Course HPI by Dr. Mejia Jaclyn Sellers is a 75 year old female with past medical history of insulin-dependent type 2 diabetes mellitus, hypothyroidism, hypertension, recent CVA. She presents to the ER today with c/o fever shortness of breath, and fatigue over the past 4-5 days. + exposure to COVID from her son in law. Initially visited PCP on 06/01- COVID PCR negative from 06/02. Today she was noted to be hypoxic with oxygen saturation at 85% on room air and brought to ER, currently on 2lpm 02 supplementation. Tmax 99.8F. CTA chest showed segmental PE with right heart strain. Hospital course Patient was admitted for management of acute hypoxic respiratory failure related to PE, concern for heart strain on CT scan however echo did not show right ventricular strain, patient never experienced any hypotension, no severe shortness of breath or chest pain. She was saturating well on day of discharge. She will be discharged on loading dose of Eliquis and 5 mg of Eliquis to be resumed afterwards. PT did see her and recommended home with home health services Her daughter has COVID-19, I have had discussion with her and the grandson. Daughter should quarantine for at least 21 days, I have asked her not to coming to pick her mother and brother send grandson. For now Ms. Sellers will live with relatives who are not Covid positive. Her Covid PCR was unremarkable. She is not requiring oxygen at the time of discharge. She does get opioids for her arthritis. I have not changed any opioid dosages. Venous Doppler is pending however patient is wanting to leave. We will give her a prescription for venous Doppler. Her PE seems provoked secondary to her sedentary lifestyle due to her arthritis she will need at least 3 months of anticoagulation. Physical Exam Narrative: EXAM NARRATIVE: elderly female No active distress S1, S2 sinus rhythm No murmur appreciated no signs of heart failure Abdomen soft distended with obesity Bilateral breath sounds without adventitious rhonchi or crackles EOMI, PERRLA no neurological deficit Discharge Data Data Completed and Pending: Completed Studies During Hospitalization Category Date Time Status CT angio chest PE protcl [id number] Stat Cat Scan 06/03/21 21:16 Completed XR chest 1V nola ble [id number] Stat Exams 06/03/21 20:16 Completed CV echo limited [id number] Routine Ultrasound 06/04/21 00:18 Completed Pending at discharge Category Date Time Status Blood Culture Sta t Lab 06/03/21 20:10 Results Labs from last 24 hours 06/05/21 06/05/21 06/05/21 11:05 06:40 04:23 WBC 11.5 H RBC 4.04 L Hgb 11.8 Hct 37.9 MCV 93.8 MCH 29.2 MCHC 31.1 RDW 14.7 Plt Count 225 MPV 10.3 Neut % (Auto) 71.2 Lymph % (Auto) 18.6 [place] % (Auto) 6.9 Eos % (Auto) 2.0 Baso % (Auto) 0.4 Neut # (Auto) 8.20 H Lymph # (Auto) 2.1 [place] # (Auto) 0.8 Eos # (Auto) 0.2 Baso # (Auto) 0.1 Nucleated RBC % (a uto) 0 Nucleated RBCs # 0.0 POC Glucose 138 H 77 06/04/21 06/04/21 20:13 16:33 WBC RBC Hgb Hct MCV MCH MCHC RDW Plt Count MPV Neut % (Auto) Lymph % (Auto) [place] % (Auto) Eos % (Auto) Baso % (Auto) Neut # (Auto) Lymph # (Auto) [place] # (Auto) Eos # (Auto) Baso # (Auto) Nucleated RBC % (a uto) Nucleated RBCs # POC Glucose 182 H 153 H Vitals: Last Vital Signs Temp 98.2 F 06/05/21 16:10 Pulse 69 06/05/21 16:10 Resp 16 06/05/21 16:10 BP 112/78 06/05/21 16:10 Pulse Ox 96 06/05/21 16:10 Discharge Plan Discharge Patient Disposition: Home Health Service Condition: Stable Prescriptions: New Eliquis 5 mg Tablet 10 mg PO BID@0900,2100 4 Days Qty: 8 RF: 0 Eliquis 5 mg tablet 5 mg PO BID 90 Days Qty: 180 RF: 0 Continued oxycodone 10 mg tablet 10 mg PO QID PRN (Reason: pain) 30 Days Qty: 120 RF: 0 gabapentin 300 mg capsule 300 mg PO QID 30 Days Qty: 120 RF: 1 temazepam 15 mg capsule 15 mg PO BEDTIME@2000 30 Days Qty: 30 RF: 1 (DME) Accu-Chek Lauryn Plus test strp Strip See Rx Instructions .ROUTE .MEDSUPPLY Qty: 100 RF: 11 (DME) pen needle, diabetic [BD Aishwarya 2nd Gen Pen Needle] 32 gauge x 5/32 needle See Rx Instructions .Route Qty: 100 RF: 0 lisinopril 20 mg tablet 20 mg PO DAILY@0700 Qty: 90 RF: 0 sertraline 50 mg tablet 50 mg PO Q24H Qty: 90 RF: 0 prednisone 10 mg tablet 10 mg PO DAILY 30 Days Qty: 30 RF: 1 omeprazole 20 mg capsule,delayed release(DR/EC) See Rx Instructions .ROUTE .COMPLEX Qty: 90 RF: 0 Lantus Solostar U-100 Insulin 100 unit/mL (3 mL) insulin pen See Rx Instructions .ROUTE .COMPLEX Qty: 15 RF: 0 levothyroxine 100 mcg tablet See Rx Instructions .ROUTE .COMPLEX Qty: 90 RF: 0 Januvia 100 mg tablet 100 mg PO DAILY@0600 RF: 0 aspirin 81 mg Tablet,Chewable 81 mg PO DAILY RF: 0 Discharge Orders: Discharge Order (Routine); Ordered 06/05/21 Ordered By: Spencer Nelson Other Ambulatory Orders: CV venous dup insufficie LE BI (Routine) Timeframe: 3 Days Facility: [facility] - Location: Radiology Ordered By: Spencer Nelson Referrals: Leonardo Loaiza MD [Primary Care Provider] - 1-3 days Discharge Diet: Cardiac Discharge Activity: Resume usual activity Patient Instructions: Apixaban (By mouth), Pulmonary Embolism (DC), Opioid Safety Activity Restrictions/Additional Instructions: We have found a small clot in your lungs You will take Eliquis which is a blood thinner for at least 3 months and after that you will need another evaluation whether it should be continued or not If you notice any bleeding especially in your stool you can stop taking Eliquis Discharge Attestations Time Spent in Discharge Care*: less than 30 min Quality Metrics Clinical Quality Measures During this hospital stay, did patient experience: VTE Contraindication to Overlap Therapy: Overlap therapy prescribed VTE Discharge Education: Education about anticoagulant therapy/Care Notes given Deep Vein Thrombosis/Pulmonary Embolism Present on Admission: Yes Contraindication to Pharm VTE Prophylaxis: VTE prophylaxis given Coding Level of Care Code Acute Chg FW MD note Diagnoses Pulmonary embolism I26.99
--- NOTE | 2021-06-10 08:07 | PC.SOCIAL ---
follow up discharge call made. patient is taking eliquis as prescribed. Follow up appointment made with Dr. Loaiza. Patient is wanting to get a scooter and a ramp to make access to getting into her house easier. I will work on this today.
--- NOTE | 2021-06-10 08:39 | PC.SOCIAL ---
patient has follow up appointment 06-12-[address] Loaiza, PCP. Spoke with Dr. Centeno's nurse and they will evaluate patient for scooter when she comes in.
--- NOTE | 2021-06-11 08:25 | PC.SOCIAL ---
spoke with Florinda at [employer] regarding ramp for patient. [facility] [employer] number and Florinda will help her with the paper work/application.
== END 2021-06-05 16:30 | disposition home health service (06) | DRG 176 ==
LOC: ER 22:39 → CSU 23:44
PROVIDERS: Emergency Medicine; Admitting Provider Student in an Organized Health Care Education/Training Program; Emergency Provider Family Medicine; PCP Family Medicine Adult Medicine; Visit Provider Internal Medicine
DX: I26.93 Single subsegmental thrombotic pulmonary embolism without acute cor pulmonale (principal); I50.810 Right heart failure, unspecified; M51.36 Other intervertebral disc degeneration, lumbar region; I11.0 Hypertensive heart disease with heart failure; E11.40 Type 2 diabetes mellitus with diabetic neuropathy, unspecified; M19.90 Unspecified osteoarthritis, unspecified site; Z86.73 Personal history of transient ischemic attack (TIA), and cerebral infarction without residual deficits; Z90.710 Acquired absence of both cervix and uterus; Z90.49 Acquired absence of other specified parts of digestive tract; Z87.891 Personal history of nicotine dependence; Z79.4 Long term (current) use of insulin; Z79.01 Long term (current) use of anticoagulants; Z79.52 Long term (current) use of systemic steroids; Z79.891 Long term (current) use of opiate analgesic; Z98.890 Other specified postprocedural states; Z79.890 Hormone replacement therapy; Z88.2 Allergy status to sulfonamides; F41.9 Anxiety disorder, unspecified; G89.29 Other chronic pain; M25.511 Pain in right shoulder; M25.562 Pain in left knee; M25.561 Pain in right knee; M35.3 Polymyalgia rheumatica; E89.0 Postprocedural hypothyroidism; Z79.82 Long term (current) use of aspirin; Z20.822 Contact with and (suspected) exposure to COVID-19
CPT/HCPCS: 36415; 36416; 36600; 71045; 71275; 80053; 82803; 82962; 83605; 84145; 85025; 85378; 87040; 87426; 87635; 93005; 93308; 96372; 97116; 97161; 99285; J1650; J1815; J7512; Q9967

== ENCOUNTER → 2021-06-12 14:21 | Outpatient (BNVA) | payer MEDICARE, SELFPAY | PROVIDERS: PCP Family Medicine Adult Medicine; Visit Provider Family Medicine Adult Medicine | DX: E11.40 Type 2 diabetes mellitus with diabetic neuropathy, unspecified (principal); M15.9 Polyosteoarthritis, unspecified; I67.9 Cerebrovascular disease, unspecified; Z79.52 Long term (current) use of systemic steroids; M35.3 Polymyalgia rheumatica; Z76.89 Persons encountering health services in other specified circumstances; E03.9 Hypothyroidism, unspecified; I10 Essential (primary) hypertension; I26.99 Other pulmonary embolism without acute cor pulmonale | CPT/HCPCS: 83036 ==

== ENCOUNTER 2021-07-02 06:00 | Outpatient (RCR) | payer MEDICARE, SELFPAY | END 2021-07-23 23:59 | disposition home or self-care (01) | LOC: SOT 06:00 | PROVIDERS: PCP Family Medicine Adult Medicine; Referring Provider Family Medicine Adult Medicine; Visit Provider Family Medicine Adult Medicine | DX: I26.99 Other pulmonary embolism without acute cor pulmonale (principal); J96.90 Respiratory failure, unspecified, unspecified whether with hypoxia or hypercapnia; E11.40 Type 2 diabetes mellitus with diabetic neuropathy, unspecified; I10 Essential (primary) hypertension | CPT/HCPCS: 97167; 97530 ==

== ENCOUNTER → 2021-07-10 13:17 | Outpatient (BNVA) | payer MEDICARE, SELFPAY | PROVIDERS: PCP Family Medicine Adult Medicine; Visit Provider Nurse Practitioner | DX: G89.4 Chronic pain syndrome (principal); M51.36 Other intervertebral disc degeneration, lumbar region; M47.812 Spondylosis without myelopathy or radiculopathy, cervical region; M15.9 Polyosteoarthritis, unspecified; M25.512 Pain in left shoulder; Z79.891 Long term (current) use of opiate analgesic | CPT/HCPCS: 99213 ==

== ENCOUNTER 2021-07-12 01:54 | Observation (INO) | payer MEDICARE, SELFPAY ==
[2021-07-12] VITALS (10 sets, daily range): BP systolic 110–150; BP diastolic 46–73; PULSE 65–103; RESP 14–19; TEMP 36.4–37.2; O2SAT 90–95; BMI 25.0; BMI 28.8; BMI 29.7
--- NOTE | 2021-07-12 01:58 | PC.NURSE ---
accucheck 96
--- NOTE | 2021-07-12 02:00 | CTR_ITS ---
PROCEDURE INFORMATION: Exam: CT Head Without Contrast Exam date and time: 07/12/2021 2:00 AM Age: 75 years old Clinical indication: Altered mental status/memory loss and dizziness; Age related cognitive decline; Prior surgery; Patient HX: Dizziness and weakness since 1130 pm; Additional info: AMS TECHNIQUE: Imaging protocol: Computed tomography of the head without contrast. Radiation optimization: All CT scans at this facility use at least one of these dose optimization techniques: automated exposure control; mA and/or kV adjustment per patient size (includes targeted exams where dose is matched to clinical indication); or iterative reconstruction. COMPARISON: CT head wo con* [id number] 02/28/2021 10:48 AM RADIATION DOSE METRICS: Total DLP (mGy-cm): 886.3 FINDINGS: Brain: There is mild diffuse cerebral atrophy. Patchy areas of hypoattenuation are seen in the deep white matter of the cerebral hemispheres bilaterally compatible with deep white matter microvascular disease. Cerebral ventricles: No ventriculomegaly. Paranasal sinuses: Visualized sinuses are unremarkable. No fluid levels. Mastoid air cells: Visualized mastoid air cells are well aerated. Bones/joints: Unremarkable. No acute fracture. Soft tissues: Unremarkable. CT/CT head wo con* [id number] IMPRESSION: There are no acute intracranial findings. Radiation Dose CTDIVOL = (mGy): DLP = 886.3 (mGy-cm)
--- NOTE | 2021-07-12 02:00 | XRR_ITS ---
PROCEDURE INFORMATION: Exam: XR Chest Exam date and time: 07/12/2021 2:00 AM Age: 75 years old Clinical indication: Patient HX: Fever, PT unable to give good history TECHNIQUE: Imaging protocol: XR of the chest. Views: 1 view. COMPARISON: CR (CHEST, ) 06/03/2021 8:36 PM FINDINGS: Lungs: Unremarkable. No consolidation. Pleural spaces: Unremarkable. No pleural effusion. No pneumothorax. Heart/Mediastinum: Unremarkable. No cardiomegaly. Bones/joints: Unremarkable. XR/XR chest 1V portable [id number] IMPRESSION: No acute findings. Stable chest radiograph compared with 06/03/2021.
--- NOTE | 2021-07-12 02:01 | ECG_ITS ---
[facility] Test Date: 2021-07-12 Pat Name: Jaclyn Sellers Department: Room: Gender: Female Mma Fighter: : 1945 Requested By: Sarah Padilla Order Number: [id number] Reg MD: Reid Danielson M.D. Measurements Intervals [place] Rate: 62 P: 94 DC: 173 QRS: 7 QRSD: 94 T: 40 QT: 390 QTc: 399 Interpretive Statements SINUS RHYTHM LOW QRS VOLTAGE IN PRECORDIAL LEADS [QRS DEFLECTION < 1.0 mV IN CHEST LEADS] POSSIBLE ANTERIOR MYOCARDIAL INFARCTION , PROBABLY OLD [30 ms Q WAVE IN V3/V4, OR R < 0.2 mV IN V4] Compared to ECG 06/03/2021 20:56:55 No significant changes Electronically Signed On 07-12-2021 18:02:12 CDT by Reid Danielson M.D. [id number] f
[2021-07-12] MEDS: sodium chloride 0.9% 1,000 ML 999 ML IV (02:05)
[2021-07-12 02:07] LABS: Glucose Point of Care 96 mg/dL (70-110)
[2021-07-12 02:10] LABS: ABG PCO2 52.3 mmHg (35-45); ABG PH Result 7.36 (7.35-7.45); Arterial Blood Gas Hematocrit 39.2 % (37-47); Blood Gas Allen Test Pos; Blood Gas Sample Site Radial, right; Blood Gas Sample Type Arterial; HCO3 ABG 29.5 mmol/L (22-26); Oxygen Device ROOM AIR; PO2 ABG 57.2 mmHg (80.0-100.0)
--- NOTE | 2021-07-12 02:10 | W.ED.WEAKNES ---
HPI - Weakness General: Chief complaint: Weakness Stated complaint: POSSIBLE STROKE Time Seen by Provider: 07/12/21 02:00 Source: patient and EMS Mode of arrival: EMS Limitations: no limitations History of Present Illness: HPI Narrative: 75-year-old female who states that over the last week she has been having some weakness along with low-grade fevers. She states that she went to bed tonight at 730 she had taken her pain pills in her sleeping pills. She states she had woken up at 11 30-11 with blurry vision and generalized weakness. Patient here states that her vision has been double. She also states she is feels very weak. She has chronic low back pain. Is difficult to get history from patient as she slightly lethargic likely from her pain pills or from her sleeping pills. Her last known normal was 730 when she fell asleep. Associated symptoms: Reports fever(s); Denies chest pain, chills, dysuria, easy bruising, headache(s), nausea or vomiting Review of Systems Const: Reports: fever(s); Denies: chills, body aches or change in appetite Eyes: Reports: change in vision and blurry vision; Denies: eye discomfort ENMT: Denies: throat pain or dental pain Card: Denies: chest pain Resp: Denies: dyspnea GI: Denies: abdominal pain, nausea, vomiting or diarrhea : Denies: dysuria Musc: Denies: neck pain or back pain Skin/Breast: Denies: rash Neuro: Reports: weakness in extremities; Denies: headache(s) Psych: Denies: depression Natan/Lymph: Denies: easy bruising All/Imm: Denies: urticaria [facility] PFSH: Medical History (Updated 07/12/21 @ 04:00 by Sarah Padilla MD) Anxiety disorder, unspecified Bacterial conjunctivitis Cervical spine arthritis Chronic intermittent steroid use Chronic low back pain Chronic pain disorder Chronic right shoulder pain CVD (cerebrovascular disease) DDD (degenerative disc disease), lumbar Elevated WBC count Encounter for long-term opiate analgesic use Enrolled in chronic care management HTN (hypertension) Hypothyroidism Knee pain, bilateral Left 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 knee 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 Long-term current use of opiate analgesic Opioid contract exists Pain management contract signed PMR (polymyalgia rheumatica) Subluxation of C5-C6 cervical vertebrae Total body pain Type 2 diabetes mellitus with diabetic neuropathy, unspecified Surgical History H/O total thyroidectomy H/O: hysterectomy History of appendectomy Previous back surgery Social History Smoking and tobacco status: never smoked Second hand smoke exposure: No Alcohol intake: never Caregiver/support person: Yes (DAUGHTER THE BEST THAT SHE CAN) Lives independently: Yes Housing: House Pets and animals: Yes Pets & animals: dog(s) History of recent travel: No Physical Exam Const: COMMON NORMALS: no acute distress, patient oriented x3 and healthy appearing HENMT: COMMON NORMALS: normocephalic and atraumatic HEAD & SCALP: normocephalic and atraumatic Eye: COMMON NORMALS: Equal, round and reactive pupils present and EOMs intact bilaterally PUPIL: Yes Equal, round and reactive pupils present Neck/C-Spine: COMMON NORMALS: full ROM and supple Chest: COMMONS NORMALS: normal inspection of the chest and normal palpation of entire chest wall Resp: COMMON NORMALS: normal respiratory effort, No retractions, No use of accessory muscles and clear to auscultation bilaterally AUSCULTATION: clear to auscultation bilaterally Cardio: COMMON NORMALS: regular rate, regular rhythm and No murmurs present (Cardio) RATE: regular rate RHYTHM: regular rhythm GI: COMMON NORMALS: Normal to inspection, nondistended, normoactive bowel sounds present, Soft to palpation, non-tender and no masses PALPATION: Yes Soft to palpation Extremity: COMMON NORMALS: normal to inspection and full ROM Neuro: COMMON NORMALS: patient oriented x3, moves all extremities and no focal motor deficits Psych: COMMON NORMALS: mental status grossly normal, Normal thought process present and cooperative THOUGHT PROCESS: Normal thought process present Skin: COMMON NORMALS: no rashes or lesions noted and no wounds GENERAL SKIN EXAM: no rashes or lesions noted Course Vital Signs: Vital signs: Vital Signs Temperature 97.6 F 07/12/21 01:59 Pulse Rate 65 07/12/21 01:59 Respiratory Rate 16 07/12/21 03:12 Blood Pressure 133/64 07/12/21 03:12 Pulse Oximetry 93 07/12/21 03:12 MDM - Weakness MDM Narrative: Medical decision making narrative: Patient presents here with weakness and double vision. Her last known normal was 730 last night and she is not a TPA candidate. She is also on Eliquis which makes her not a TPA candidate. Her blood work and CT scan here are normal. Difficult to get much history from patient due to her taking her pain meds and her sleeping pills. Her symptoms of weakness double vision could be from her sleeping pills as well. Spoke to the hospitalist will admit for observation for further exam once her meds wear off. Lab Data: Labs: Lab Results 07/12/21 07/12/21 07/12/21 Range/Units 01:57 02:00 02:13 WBC 11.6 H (4.0-10.0) 10^3/ uL RBC 4.39 (4.1-5.3) 10^6/u L Hgb 12.9 (11.5-15.3) g/dL Hct 42.4 (37.0-47.0) % MCV 96.6 (81-99) fl MCH 29.4 (28.0-34.0) pg MCHC 30.4 (30.0-36.0) g/dL RDW 15.5 H (12.1-15.1) % Plt Count 217 (130-400) 10^3/c mm MPV 10.3 (7.4-10.4) fL Neut % (Auto) 64.7 % Lymph % (Auto) 21.8 % [place] % (Auto) 8.3 % Eos % (Auto) 2.9 % Baso % (Auto) 0.7 % Neut # (Auto) 7.48 (1.8-7.7) 10^3/u L Lymph # (Auto) 2.5 (0.8-4.8) 10^3/u L [place] # (Auto) 1.0 H (0.2-0.9) 10^3/u L Eos # (Auto) 0.3 (0.0-0.8) 10^3/u L Baso # (Auto) 0.1 (0.0-0.1) 10^3/u L Nucleated RBC % (a uto) 0 % Nucleated RBCs # 0.0 /100WBC PT (12.1-14.9) SECO NDS INR (0.8-1.2) Specimen Type Arterial Sample Site Radial, right ABG pH 7.36 (7.35-7.45) ABG pCO2 52.3 H (35-45) mmHg ABG pO2 57.2 L (80.0-100.0) mmH g ABG HCO3 29.5 H (22-26) mmol/L ABG Base Excess 3.0 H (-2.0-2.0) mmol/ L Enrique Test Pos Hematocrit 39.2 (37-47) % O2 Delivery Device Room air FiO2 21.0 % Border Patrol Officer ID [email or web address] Sodium (136-145) mmol/L Potassium (3.5-5.1) mmol/L Chloride (98-107) mmol/L Carbon Dioxide (22-29) mmol/L Anion Gap (5-19) BUN (8-23) mg/dL Creatinine (0.5-0.9) mg/dL GFR Calculation Glucose (65-115) mg/dL POC Glucose 96 (70-110) mg/dL Calculated Osmolal ity (285-295) mOsm/k g Lactate (0.5-2.2) mmol/L Calcium (8.5-10.5) mg/dL Magnesium (1.7-2.3) mg/dL Total Bilirubin (0.15-1.2) mg/dL AST (0-32) U/L ALT (0-33) U/L Alkaline Phosphata se (35-105) IU/L Total Protein (6.6-8.7) g/dL Albumin (3.5-5.2) g/dL Globulin (1.3-4.6) g/dL Urine Color (Yellow) Urine Appearance (CLEAR) Urine pH (5-7) Ur Specific Gravit y (1.005-1.030) Urine Protein (Negative) Urine Glucose (UA) (Normal) Urine Ketones (Negative) Urine Blood (Negative) Urine Nitrate (Negative) Urine Bilirubin (Negative) Urine Urobilinogen (Negative) mg/dL Ur Leukocyte Jada ase (Negative) 07/12/21 07/12/21 07/12/21 Range/Units 02:13 02:13 02:13 WBC (4.0-10.0) 10^3/ uL RBC (4.1-5.3) 10^6/u L Hgb (11.5-15.3) g/dL Hct (37.0-47.0) % MCV (81-99) fl MCH (28.0-34.0) pg MCHC (30.0-36.0) g/dL RDW (12.1-15.1) % Plt Count (130-400) 10^3/c mm MPV (7.4-10.4) fL Neut % (Auto) % Lymph % (Auto) % [place] % (Auto) % Eos % (Auto) % Baso % (Auto) % Neut # (Auto) (1.8-7.7) 10^3/u L Lymph # (Auto) (0.8-4.8) 10^3/u L [place] # (Auto) (0.2-0.9) 10^3/u L Eos # (Auto) (0.0-0.8) 10^3/u L Baso # (Auto) (0.0-0.1) 10^3/u L Nucleated RBC % (a uto) % Nucleated RBCs # /100WBC PT 18.80 H (12.1-14.9) SECO NDS INR 1.53 H (0.8-1.2) Specimen Type Sample Site ABG pH (7.35-7.45) ABG pCO2 (35-45) mmHg ABG pO2 (80.0-100.0) mmH g ABG HCO3 (22-26) mmol/L ABG Base Excess (-2.0-2.0) mmol/ L Enrique Test Hematocrit (37-47) % O2 Delivery Device FiO2 % [employer] Patrol Officer ID Sodium 137 (136-145) mmol/L Potassium 4.3 (3.5-5.1) mmol/L Chloride 103 (98-107) mmol/L Carbon Dioxide 23 (22-29) mmol/L Anion Gap 15.3 (5-19) BUN 16 (8-23) mg/dL Creatinine 0.9 (0.5-0.9) mg/dL GFR Calculation Not Reportable Glucose 110 (65-115) mg/dL POC Glucose (70-110) mg/dL Calculated Osmolal ity 286 (285-295) mOsm/k g Lactate 1.0 (0.5-2.2) mmol/L Calcium 8.5 (8.5-10.5) mg/dL Magnesium 2.0 (1.7-2.3) mg/dL Total Bilirubin 0.5 (0.15-1.2) mg/dL AST 21 (0-32) U/L ALT 15 (0-33) U/L Alkaline Phosphata se 102 (35-105) IU/L Total Protein 5.7 L (6.6-8.7) g/dL Albumin 3.1 L (3.5-5.2) g/dL Globulin 2.6 (1.3-4.6) g/dL Urine Color (Yellow) Urine Appearance (CLEAR) Urine pH (5-7) Ur Specific Gravit y (1.005-1.030) Urine Protein (Negative) Urine Glucose (UA) (Normal) Urine Ketones (Negative) Urine Blood (Negative) Urine Nitrate (Negative) Urine Bilirubin (Negative) Urine Urobilinogen (Negative) mg/dL Ur Leukocyte Jada ase (Negative) 07/12/21 Range/Units 03:09 WBC (4.0-10.0) 10^3/ uL RBC (4.1-5.3) 10^6/u L Hgb (11.5-15.3) g/dL Hct (37.0-47.0) % MCV (81-99) fl MCH (28.0-34.0) pg MCHC (30.0-36.0) g/dL RDW (12.1-15.1) % Plt Count (130-400) 10^3/c mm MPV (7.4-10.4) fL Neut % (Auto) % Lymph % (Auto) % [place] % (Auto) % Eos % (Auto) % Baso % (Auto) % Neut # (Auto) (1.8-7.7) 10^3/u L Lymph # (Auto) (0.8-4.8) 10^3/u L Dickson # (Auto) (0.2-0.9) 10^3/u L Eos # (Auto) (0.0-0.8) 10^3/u L Baso # (Auto) (0.0-0.1) 10^3/u L Nucleated RBC % (a uto) % Nucleated RBCs # /100WBC PT (12.1-14.9) SECO NDS INR (0.8-1.2) Specimen Type Sample Site ABG pH (7.35-7.45) ABG pCO2 (35-45) mmHg ABG pO2 (80.0-100.0) mmH g ABG HCO3 (22-26) mmol/L ABG Base Excess (-2.0-2.0) mmol/ L Enrique Test Hematocrit (37-47) % O2 Delivery Device FiO2 % Border Patrol Officer ID Sodium (136-145) mmol/L Potassium (3.5-5.1) mmol/L Chloride (98-107) mmol/L Carbon Dioxide (22-29) mmol/L Anion Gap (5-19) BUN (8-23) mg/dL Creatinine (0.5-0.9) mg/dL GFR Calculation Glucose (65-115) mg/dL POC Glucose (70-110) mg/dL Calculated Osmolal ity (285-295) mOsm/k g Lactate (0.5-2.2) mmol/L Calcium (8.5-10.5) mg/dL Magnesium (1.7-2.3) mg/dL Total Bilirubin (0.15-1.2) mg/dL AST (0-32) U/L ALT (0-33) U/L Alkaline Phosphata se (35-105) IU/L Total Protein (6.6-8.7) g/dL Albumin (3.5-5.2) g/dL Globulin (1.3-4.6) g/dL Urine Color Yellow (Yellow) Urine Appearance Clear (CLEAR) Urine pH 5 (5-7) Ur Specific Gravit y 1.020 (1.005-1.030) Urine Protein Neg (Negative) Urine Glucose (UA) Norm (Normal) Urine Ketones Negative (Negative) Urine Blood Neg (Negative) Urine Nitrate Negative (Negative) Urine Bilirubin 1+ H (Negative) Urine Urobilinogen Norm (Negative) mg/dL Ur Leukocyte Jada ase Negative (Negative) Imaging Data^: CT Head: Attestation: I personally reviewed and interpreted this imaging study as follows: Radiologist's impression: [address] [address] [address] Scan Report Signed Patient: Jaclyn Sellers Unit #: [id number] : 1945 Age/Sex: 75 / F ADM Date: 07/12/21 Loc: ER Room/Bed: Attending Dr: Ordering Provider/Ordering MD: Sarah Padilla MD Date of Service: 07/12/21 Procedure(s): CT head wo con* [id number] Accession Number(s): [id number] Report Number: [id number] PROCEDURE INFORMATION: Exam: CT Head Without Contrast Exam date and time: 07/12/2021 2:00 AM Age: 75 years old Clinical indication: Altered mental status/memory loss and dizziness; Age related cognitive decline; Prior surgery; Patient HX: Dizziness and weakness since 1130 pm; Additional info: AMS TECHNIQUE: Imaging protocol: Computed tomography of the head without contrast. Radiation optimization: All CT scans at this facility use at least one of these dose optimization techniques: automated exposure control; mA and/or kV adjustment per patient size (includes targeted exams where dose is matched to clinical indication); or iterative reconstruction. COMPARISON: CT head wo con* [id number] 02/28/2021 10:48 AM RADIATION DOSE METRICS: Total DLP (mGy-cm): 886.3 FINDINGS: Brain: There is mild diffuse cerebral atrophy. Patchy areas of hypoattenuation are seen in the deep white matter of the cerebral hemispheres bilaterally compatible with deep white matter microvascular disease. Cerebral ventricles: No ventriculomegaly. Paranasal sinuses: Visualized sinuses are unremarkable. No fluid levels. Mastoid air cells: Visualized mastoid air cells are well aerated. Bones/joints: Unremarkable. No acute fracture. Soft tissues: Unremarkable. CT/CT head wo con* [id number] IMPRESSION: There are no acute intracranial findings. Radiation Dose CTDIVOL = (mGy): DLP = 886.3 (mGy-cm) Dictated By: Tigre Avila MD Signed By: Tigre Avila MD Signed Date/Time: 07/12/21347 DD/ 5 CXR: Attestation: I personally reviewed and interpreted this imaging study as follows: Radiologist's impression: [email or web address] [address] XRay Report Signed Patient: Jaclyn Sellers Unit #: [id number] : 1945 Age/Sex: 75 / F ADM Date: 07/12/21 Loc: ER Room/Bed: Attending Dr: Ordering Provider/Ordering MD: Sarah Padilla MD Date of Service: 07/12/21 Procedure(s): XR chest 1V portable [id number] Accession Number(s): [id number] Report Number: [id number] PROCEDURE INFORMATION: Exam: XR Chest Exam date and time: 07/12/2021 2:00 AM Age: 75 years old Clinical indication: Patient HX: Fever, PT unable to give good history TECHNIQUE: Imaging protocol: XR of the chest. Views: 1 view. COMPARISON: CR (CHEST, ) 06/03/2021 8:36 PM FINDINGS: Lungs: Unremarkable. No consolidation. Pleural spaces: Unremarkable. No pleural effusion. No pneumothorax. Heart/Mediastinum: Unremarkable. No cardiomegaly. Bones/joints: Unremarkable. XR/XR chest 1V portable [id number] IMPRESSION: No acute findings. Stable chest radiograph compared with 06/03/2021. Dictated By: Tigre Avila MD Signed By: Tigre Avila MD Signed Date/Time: 07/12/21248 DD/ 7 EKG Data^: EKG 1: Attestation: I personally reviewed and interpreted this EKG as follows: EKG interpretation date: 07/12/21 EKG interpretation time: 02:26 Interpretation: nsr hr [address] or t wave abnormalities qrs 94 qtc 396 Discharge Plan Discharge Patient Disposition: Admitted As Inpatient Clinical Impression: Weakness Condition: Stable Coding Level of Care Code ED Wardrobe Specialist for Chg Fwd Exam Comprehensive
[2021-07-12 02:19] LABS: Basophils # 0.1 10^3/uL (0.0-0.1); Basophils % 0.7 %; Eosinophils # 0.3 10^3/uL (0.0-0.8); Eosinophils % 2.9 %; Hematocrit 42.4 % (37.0-47.0); Hemoglobin 12.9 g/dL (11.5-15.3); Lymphocytes # 2.5 10^3/uL (0.8-4.8); Lymphocytes % 21.8 %; Mean Corpuscular HGB Conc 30.4 g/dL (30.0-36.0); Mean Corpuscular Hemoglobin 29.4 pg (28.0-34.0); Mean Corpuscular Volume 96.6 fl (81-99); Mean Platelet Volume 10.3 fL (7.4-10.4); Monocytes % 8.3 %; Neutrophils # 7.48 10^3/uL (1.8-7.7); Neutrophils % 64.7 %; Nucleated Red Blood Cells % 0 %; Platelet Count 217 10^3/cmm (130-400); Red Blood Count 4.39 10^6/uL (4.1-5.3); Red Cell Distribution Width 15.5 % (12.1-15.1); White Blood Count 11.6 10^3/uL (4.0-10.0)
[2021-07-12 02:56] LABS: Alanine Aminotransferase 15 U/L (0-33); Albumin Level 3.1 g/dL (3.5-5.2); Alkaline Phosphatase 102 IU/L (35-105); Anion Gap 15.3 (5-19); Aspartate Amino Transferase 21 U/L (0-32); Blood Urea Nitrogen 16 mg/dL (8-23); Calcium 8.5 mg/dL (8.5-10.5); Carbon Dioxide 23 mmol/L (22-29); Chloride 103 mmol/L (98-107); Creatinine Clr Calc Pharmacy 50.7532; Globulin 2.6 g/dL (1.3-4.6); Glucose 110 mg/dL (65-115); Osmolality Calculated 286 mOsm/kg (285-295); Potassium 4.3 mmol/L (3.5-5.1); Sodium 137 mmol/L (136-145); Total Bilirubin 0.5 mg/dL (0.15-1.2); Total Protein 5.7 g/dL (6.6-8.7)
[2021-07-12 02:57] LABS: INR 1.53 (0.8-1.2)
[2021-07-12 03:21] LABS: Add Urine Microscopic? NO; Charge for UA Resulting for Rev
[2021-07-12 03:33] LABS: Bilirubin Urine 1+ (Negative); Blood Urine Neg (Negative); Glucose Urine UA Norm (Normal); Ketones Urine Negative (Negative); Leukocyte Esterase Urine Negative (Negative); Nitrate Urine Negative (Negative); Protein Urine Neg (Negative); Urine Appearance Clear (CLEAR); Urine Color Yellow (Yellow); Urobilinogen Urine Norm (Negative); pH Urine 5 (5-7)
--- NOTE | 2021-07-12 04:12 | PC.NURSE ---
report called to Viky RONDON
--- NOTE | 2021-07-12 04:33 | PM.HP ---
Providers/Chief Complaint Admitting Physician: Oleg Hughes MD Primary Care Provider: Leonardo oLaiza MD Chief Complaint: POSSIBLE STROKE History of Present Illness Jaclyn Sellers is a 75 year old female with a past medical history of insulin-dependent type 2 diabetes mellitus, hypothyroidism, hypertension, history of CVA in 03/12/2021, history of recent pulmonary emboli, chronic back pain, chronic bilateral knee pain, on oxycodone, history of PMR on steroids who presents to [facility] due to double vision, dizziness, weakness, slurred speech. Patient presents [facility], lives in [place], with her daughter and her son-in-law, her daughter was concerned as she was complaining of double vision to her daughter, and was having slurred speech, given her history of CVAs, she is concerned for another stroke so she called EMS. Patient tells me that she has been having double vision for the last day or so with dizziness, no nausea, no vomiting, no headache, blurry vision, she has not noticed her speech to be slurred, she denies any focal weakness, no paresthesias, no falls, denies chest pain, denies palpitations, denies a history of A. fib, is on Eliquis, is on aspirin pain, taking medication as prescribed, she used Restoril just before falling asleep, denies using it with oxycodone, denies alcohol consumption, denies use of any illicit drugs. Currently patient is alert to person, to place, not to time, she does follow commands, the only thing I can discern is mild slurring of her speech, and delayed responses, her NIH stroke scale is 1, she is out of the TPA window, as her last known normal was when she fell asleep at around 8 PM or so in the emergency room, she was not deemed a candidate for TPA, and her CT of the head was negative for acute stroke and negative for acute bleed. Hospitalist team was called for admission. Review of Systems Const: Denies: fever(s), chills, fatigue or malaise Eyes: Denies: change in vision or blurry vision Card: Denies: chest pain, palpitations, irregular heart rhythm, edema, lightheadedness, syncope or pre-syncope Resp: Denies: dyspnea, productive cough, non-productive cough or wheezing GI: Denies: abdominal pain, nausea, vomiting, hematemesis, diarrhea, constipation, hematochezia or melena : Denies: flank pain, dysuria or urinary frequency Musc: Denies: neck pain or back pain Skin/Breast: Denies: rash Neuro: Reports: dizziness, Slurred speech present and difficulty communicating thoughts; Denies: headache(s), numbness in extremities, weakness in extremities, sensory changes, lack of coordination, difficulty walking, frequent falls, vertigo or confusion Endo: Denies: polyuria or polydipsia Medications/Allergies Home Medications Medication Instructions Recorded Confirmed Last Taken Type blood sugar diagnostic #100 each 02/19/21 07/10/21 Unknown Rx omeprazole 20 mg capsule,delayed See Rx Instructions .ROUTE 04/20/21 07/10/21 Unknown Rx release .COMPLEX #90 capsule insulin glargine 100 unit/mL (3 See Rx Instructions .ROUTE 04/22/21 07/10/21 Unknown Rx mL) subcutaneous pen .COMPLEX #15 milliliter levothyroxine 100 mcg tablet See Rx Instructions .ROUTE 05/25/21 07/10/21 Unknown Rx .COMPLEX #90 tablet aspirin 81 mg PO DAILY 06/04/21 07/10/21 Unknown History apixaban [Eliquis] 5 mg PO BID 90 Days #180 tab 06/05/21 07/10/21 Unknown Rx prednisone 10 mg tablet 10 mg PO DAILY 30 Days #30 tab 06/08/21 07/10/21 Unknown Rx pen needle, diabetic 32 gauge x #100 ea 06/11/21 07/10/21 Unknown Rx 5/32 lisinopril 20 mg tablet See Rx Instructions .ROUTE 06/12/21 07/10/21 Unknown Rx .COMPLEX #90 tab sertraline 50 mg tablet See Rx Instructions .ROUTE 06/22/21 07/10/21 Unknown Rx .COMPLEX #90 tab sitagliptin 100 mg tablet See Rx Instructions .ROUTE 06/22/21 07/10/21 Unknown Rx .COMPLEX #90 tablet atorvastatin 40 mg tablet 40 mg PO DAILY #90 tab 06/24/21 07/10/21 Unknown Rx gabapentin 300 mg capsule 300 mg PO QID 30 Days #120 cap 07/10/21 07/10/21 Unknown Rx oxycodone 10 mg tablet 10 mg PO QID 30 Days #120 tab 07/10/21 07/10/21 Unknown Rx oxycodone 10 mg tablet 10 mg PO QID PRN 30 Days #120 tab 07/10/21 07/10/21 Unknown Rx temazepam 15 mg capsule 15 mg PO BEDTIME@1999 30 Days #30 07/10/21 07/10/21 Unknown Rx cap Allergies Allergy/AdvReac Type Severity Reaction Status Date / Time baclofen Allergy Unknown ADR-Shakiness,caused Verified 07/10/21 13:21 body to jerk codeine Allergy Unknown ADR-Dizziness,dizziness, Verified 07/10/21 13:21 Nausea erythromycin base Allergy Unknown ADR-Vomiting,vomiting, Verified 07/10/21 13:21 rash leflunomide Allergy Unknown Unknown,severe Verified 07/10/21 13:21 increased pain bupropion [From Wellbutrin] Allergy ADR-Nausea Verified 07/10/21 13:21 celecoxib [From Celebrex] Allergy ALGY-Rash Verified 07/10/21 13:21 pregabalin [From Lyrica] Allergy ALGY-Rash Verified 07/10/21 13:21 Sulfa (Sulfonamide Allergy VOMITING Verified 07/10/21 13:21 Antibiotics) Celebrex Allergy Unknown Rash Uncoded 06/12/21 13:28 Lyrica Allergy Unknown Rash Uncoded 06/12/21 13:28 Wellbutrin Allergy Unknown Nausea Uncoded 06/12/21 13:28 PFSH Acute PFSH: Medical History Anxiety disorder, unspecified Bacterial conjunctivitis Cervical spine arthritis Chronic intermittent steroid use Chronic low back pain Chronic pain disorder Chronic right shoulder pain CVD (cerebrovascular disease) DDD (degenerative disc disease), lumbar Elevated WBC count Encounter for long-term opiate analgesic use Enrolled in chronic care management HTN (hypertension) Hypothyroidism Knee pain, bilateral Left anterior knee pain 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 Long-term current use of opiate analgesic Opioid contract exists Pain management contract signed PMR (polymyalgia rheumatica) Subluxation of C5-C6 cervical vertebrae Total body pain Type 2 diabetes mellitus with diabetic neuropathy, unspecified Surgical History H/O total thyroidectomy H/O: hysterectomy History of appendectomy Previous back surgery Social History Smoking and tobacco status: never smoked Second hand smoke exposure: No Alcohol intake: never Caregiver/support person: Yes (DAUGHTER THE BEST THAT SHE CAN) Lives independently: Yes Housing: House Pets and animals: Yes Pets & animals: dog(s) History of recent travel: No Vitals/I&O/Wt Last Vital Signs Temp 97.6 F 07/12/21 01:59 Pulse 65 07/12/21 01:59 Resp 16 07/12/21 03:12 BP 133/64 07/12/21 03:12 Pulse Ox 93 07/12/21 03:12 07/11/21 07/11/21 07/12/21 14:59 22:59 06:59 Intake Total 1000 / 1000 Balance 1000 / 1000 Weight last 48 hrs Weight 68.039 kg Physical Exam Const: COMMON NORMALS: no acute distress GENERAL APPEARANCE: cooperative and comfortable ORIENTATION/CONSCIOUSNESS: Yes awake, Yes oriented to person and Yes oriented to place; not oriented to time HENMT: COMMON NORMALS: normocephalic HEAD & SCALP: normocephalic Eye: COMMON NORMALS: Equal, round and reactive pupils present and EOMs intact bilaterally GENERAL EYE: appearance normal, both eyes and all related structures PUPIL: Yes Equal, round and reactive pupils present Neck/C-Spine: COMMON NORMALS: full ROM and no lymphadenopathy THYROID: Thyroid normal Lymph: LYMPHATIC: no lymphadenopathy noted Resp: COMMON NORMALS: normal respiratory effort, No retractions, No use of accessory muscles and clear to auscultation bilaterally AUSCULTATION: clear to auscultation bilaterally Cardio: COMMON NORMALS: regular rate, regular rhythm, S1 normal heart sound present, S2 normal heart sound present, No gallops present (Cardio), No clicks present (Cardio) and No murmurs present (Cardio) RATE: regular rate RHYTHM: regular rhythm HEART SOUNDS: S1 normal heart sound present and S2 normal heart sound present GI: COMMON NORMALS: Normal to inspection, nondistended, normoactive bowel sounds present, Soft to palpation, non-tender and No hepatosplenomegaly present PALPATION: Yes Soft to palpation and Yes No hepatosplenomegaly present Extremity: COMMON NORMALS: normal to inspection, full ROM and no pedal edema Neuro: COMMON NORMALS: CN's II-XII intact bilaterally and moves all extremities SENSORIUM/ORIENTATION: Yes alert, Yes oriented to person, Yes oriented to place and No oriented to time OTHER: Has equal strength bilateral upper extremities, does have pain with lifting left leg off the bed, due to a bad knee according to patient, but good plantar dorsi and plantar flexion of bilateral feet, has good hip strength bilateral Psych: COMMON NORMALS: mental status grossly normal, Normal thought process present and cooperative THOUGHT PROCESS: Normal thought process present Urinary Catheter Management^: Real: Cath Placed During This Visit: yes Urinary Catheter Date of Insertion: 07/12/21 Urinary Catheter Time of Insertion: 03:00 Data : 07/12/21 02:13 07/12/21 02:13 Micro: Microbiology 07/12/21 02:53 Blood Culture - Preliminary Blood SPECIMEN COLLECTED A&P Assessment and plan (1) CVA (cerebral vascular accident): Cerebrovascular accident -It is difficult to discern if patient's current symptomatology is related to her temazepam or focal symptoms from a CVA -Currently the only symptomatology I can discern that is concerning for CVA is her slurring of words, and to some degree word finding difficulty, NIH stroke scale 0, out of TPA window, CT of the head no acute stroke -CTA head and neck showed less than 50% stenosis of the carotid arteries -Cardiac echocardiogram showed an EF of 55 to 60%, normal diastolic dysfunction -EKG no acute A. fib Plan: -Admit to general medical floors -Neurochecks, NIH stroke scales -Keep n.p.o. 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 (3) Pulmonary embolism: Status: Acute Qualifiers: Acute cor pulmonale presence: without acute cor pulmonale Chronicity: acute Pulmonary embolism type: other Qualified Code(s): I26.99 - Other pulmonary embolism without acute cor pulmonale (4) GERD (gastroesophageal reflux disease): Status: Acute Qualifiers: Esophagitis presence: without esophagitis Qualified Code(s): K21.9 - Gastro-esophageal reflux disease without esophagitis (5) Osteoarthritis involving multiple joints on both sides of body: Status: Acute (6) Hypothyroidism: Status: Acute (7) HTN (hypertension): Status: Acute (8) Chronic pain disorder: Status: Chronic (9) PMR (polymyalgia rheumatica): Status: Chronic (10) Type 2 diabetes mellitus with diabetic neuropathy, unspecified: Status: Chronic Attestations Medical Necessity Statement*: Patient requires hospitalization for CVA, outpatient with observation, Coding Level of Care Code 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
[2021-07-12 04:43] LABS: SARS Covid-2 Antigen Negative (Negative)
[2021-07-12] MEDS: sodium chloride 0.9% 1,000 ML 75 ML IV ×2 (05:34→17:02)
[2021-07-12 06:14] LABS: Glucose Point of Care 95 mg/dL (70-110)
--- NOTE | 2021-07-12 10:21 | P.PN_ITS ---
Subjective Subjective: Interval history: 75 year old female with a past medical history of insulin-dependent type 2 diabetes mellitus, hypothyroidism, hypertension, history of CVA in 03/12/2021, history of recent pulmonary emboli, chronic back pain, chronic bilateral knee pain, on oxycodone, history of PMR on chronic steroid immunosuppression who presents to [facility] due to double v ision, dizziness, weakness, slurred speech. NIH of 1, Unknown onset time. No TPA indicated. Laboratory workup on arrival showed WBC of 11.6, hemoglobin 12.9, hematocrit of 42.4 and a platelet count of 217.X-ray blood gases showed a pH of 7.36, P CO2 of 52.3, PO2 57.2 and a bicarb of 29.5 on room air. Sodium 137, potassium 4.3, chloride 103, bicarb 23, BUN 16 and creatinine of 0.9. Lactic acid of 1.0. LFTs within normal limits. TSH was elevated at 9.50. Urinalysis was negative. Covid-[address] was negative. Chest x-ray did not show any acute abnormalities Recent Neuro work up - 02/28/21 CTA head & Neck - Less than 50% stenosis in the carotid arteries. No vascular occlusion in the neck ECHO - pEF 55-60%, no sig valvular abnormality. Subjective: Patient was sleepy however arousal. Daughter at bedside. Medications: Reviewed: Yes Vitals/I&O/Wt Last Vital Signs Temp 98.3 F 07/12/21 08:20 Pulse 69 07/12/21 08:20 Resp 15 07/12/21 08:20 BP 135/65 07/12/21 08:20 Pulse Ox 91 07/12/21 08:20 07/11/21 07/12/21 07/12/21 22:59 06:59 14:59 Intake Total 1000 / 1000 Output Total 300 / 300 Balance 700 / 700 Weight last 48 hrs Weight 81.148 kg Weight 80.966 kg Weight 68.039 kg Physical Exam Const: COMMON NORMALS: no acute distress and alert GENERAL APPEARANCE: cooperative and comfortable ORIENTATION/CONSCIOUSNESS: Yes awake, Yes oriented to person and Yes oriented to place; not oriented to time HENMT: COMMON NORMALS: normocephalic HEAD & SCALP: normocephalic Eye: COMMON NORMALS: Equal, round and reactive pupils present and EOMs intact bilaterally GENERAL EYE: appearance normal, both eyes and all related structures PUPIL: Yes Equal, round and reactive pupils present Neck/C-Spine: COMMON NORMALS: full ROM, no lymphadenopathy and Thyroid normal THYROID: Thyroid normal Lymph: LYMPHATIC: no lymphadenopathy noted Resp: COMMON NORMALS: normal respiratory effort, No retractions, No use of accessory muscles and clear to auscultation bilaterally AUSCULTATION: clear to auscultation bilaterally Cardio: COMMON NORMALS: regular rate, regular rhythm, S1 normal heart sound pr esent, S2 normal heart sound present, No gallops present (Cardio), No clicks present (Cardio) and No murmurs present (Cardio) RATE: regular rate RHYTHM: regular rhythm HEART SOUNDS: S1 normal heart sound present and S2 normal heart sound present GI: COMMON NORMALS: Normal to inspection, nondistended, normoactive bowel sounds present, Soft to palpation, non-tender and No hepatosplenomegaly present PALPATION: Yes Soft to palpation and Yes No hepatosplenomegaly present Extremity: COMMON NORMALS: normal to inspection, full ROM and no pedal edema Neuro: COMMON NORMALS: CN's II-XII intact bilaterally and moves all extremities SENSORIUM/ORIENTATION: Yes alert, Yes oriented to person, Yes oriented to place and No oriented to time OTHER: Has equal strength bilateral upper extremities, does have pain with lifting left leg off the bed, due to a bad knee according to patient, but good plantar dorsi and plantar flexion of bilateral feet, has good hip strength bilateral Psych: COMMON NORMALS: mental status grossly normal, Normal thought process present and cooperative THOUGHT PROCESS: Normal thought process present Urinary Catheter Management^: Real: Cath Placed During This Visit: yes Reason for Continuing Indwelling Catheter: Accurate Measurement of Urinary Output in Critically Ill Patients Urinary Catheter Date of Insertion: 07/12/21 Urinary Catheter Time of Insertion: 03:00 Data : 07/12/21 02:13 07/12/21 02:13 Micro: Microbiology 07/12/21 06:38 Blood Culture - Preliminary Blood SPECIMEN COLLECTED 07/12/21 02:53 Blood Culture - Preliminary Blood SPECIMEN COLLECTED A&P Assessment and plan (1) CVA (cerebral vascular accident): Status: Acute (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 (3) Pulmonary embolism: Status: Acute Qualifiers: Acute cor pulmonale presence: without acute cor pulmonale Chronicity: acute Pulmonary embolism type: other Qualified Code(s): I26.99 - Other pulmonary embolism without acute cor pulmonale (4) GERD (gastroesophageal reflux disease): Status: Acute Qualifiers: Esophagitis presence: without esophagitis Qualified Code(s): K21.9 - Gastro-esophageal reflux disease without esophagitis (5) Osteoarthritis involving multiple joints on both sides of body: Status: Acute (6) Hypothyroidism: Status: Acute (7) HTN (hypertension): Status: Acute (8) Chronic pain disorder: Status: Chronic (9) PMR (polymyalgia rheumatica): Status: Chronic (10) Type 2 diabetes mellitus with diabetic neuropathy, unspecified: Status: Chronic Additional A&P Information TIA r/o CVA NIH 1 on arrival Neuro-checks CT head negative 02/28 CTA head and neck - less than 50% stenosis 02/28 ECHO - pEF, no severe valvular disease Nursing bedside swallow if no aspiration - start diabetic diet Aspirin 81 mg PO daily LIpitor 40 mg PO daily Check lipid panel, a1c in am Will order MRI Brain w/o contrast Allow for permissive HTN - resume after 24hr ST/PT/OT consulted Hypothyroidism TSH of 9.50 Increase levothothyroxine 112 mcg PO daily Repeat TSH in 4 weeks Diabetes Mellitus Sliding scale Check a1c in am Polymyalgia Rheumatica Prednisone 10 mg PO daily Pulmonary embolism Eliquis 5 mg PO BID Hypertension Lisinopril 20 mg PO daily ( Held) Depression Zoloft 50 mg PO daily Chronic Pain Syndrome Oxycodone 5 mg IR Q6hr PRN Pain Decrease from 10 mg DVT ppx On Eliquis 5 mg PO BID Attestations Medical Necessity Statement*: Will require hospitalization for cva work up Time Spent in Patient Care: Greater than 35 minutes (>than 50% of time spent in counselling and/or direct pt care on unit) . 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
[2021-07-12] MEDS: pantoprazole DR 40 mg Tablet PO (10:23)
[2021-07-12] MEDS: atorvastatin 40 mg Tablet PO (10:23)
[2021-07-12] MEDS: aspirin 81 mg Chew Tablet PO (10:23)
[2021-07-12] MEDS: apixaban 5 mg Tablet PO ×2 (10:24→16:59)
[2021-07-12] MEDS: predniSONE 10 mg Tablet PO (10:24)
--- NOTE | 2021-07-12 10:31 | PC.OT ---
OT order received. Chart reviewed. Patient was up with nursing and admit until after 5AM. Will hold OT evaluation as patient is requiring rest to appropriately assess neurological function. According to H&P, patient's only symptoms were slurred speech. Will attempt OT evaluation at later time to accurately assess functional performance. Timbo Romero, OTR/L
[2021-07-12 10:46] LABS: Glucose Point of Care 83 mg/dL (70-110)
--- NOTE | 2021-07-12 12:36 | PC.NURSE ---
Daughter at bedside and requesting to speak with Dr. Dr Lorenz notified.
--- NOTE | 2021-07-12 17:04 | PC.NURSE ---
notified Dr Lorenz that patient is alert now and requesting pain medication.
[2021-07-12 17:12] LABS: Glucose Point of Care 147 mg/dL (70-110)
[2021-07-12] MEDS: oxyCODONE 5 mg IR Tab/Cap PO (17:41)
[2021-07-12 19:17] LABS: Glucose Point of Care 129 mg/dL (70-110)
[2021-07-12 20:46] LABS: Glucose Point of Care 157 mg/dL (70-110)
[2021-07-13] VITALS (7 sets, daily range): BP systolic 102–161; BP diastolic 67–77; PULSE 61–69; RESP 16–18; TEMP 36.3–36.9; O2SAT 92–98
[2021-07-13] MEDS: oxyCODONE 5 mg IR Tab/Cap PO (02:03)
[2021-07-13] MEDS: levothyroxine 112 mcg Tablet PO (05:12)
[2021-07-13 05:18] LABS: Basophils # 0.1 10^3/uL (0.0-0.1); Basophils % 0.5 %; Eosinophils # 0.2 10^3/uL (0.0-0.8); Eosinophils % 1.6 %; Hematocrit 38.1 % (37.0-47.0); Lymphocytes # 2.3 10^3/uL (0.8-4.8); Lymphocytes % 19.9 %; Mean Corpuscular HGB Conc 31.5 g/dL (30.0-36.0); Mean Corpuscular Hemoglobin 29.7 pg (28.0-34.0); Mean Corpuscular Volume 94.3 fl (81-99); Mean Platelet Volume 11.2 fL (7.4-10.4); Monocytes # 0.8 10^3/uL (0.2-0.9); Monocytes % 6.4 %; Neutrophils # 8.32 10^3/uL (1.8-7.7); Neutrophils % 70.7 %; Nucleated Red Blood Cells % 0 %; Platelet Count 223 10^3/cmm (130-400); Red Blood Count 4.04 10^6/uL (4.1-5.3); Red Cell Distribution Width 14.7 % (12.1-15.1); White Blood Count 11.8 10^3/uL (4.0-10.0)
[2021-07-13 05:31] LABS: Estmated Average Glucose 157; Hemoglobin A1C 7.1 % (4.0-6.0)
[2021-07-13 05:38] LABS: Alanine Aminotransferase 14 U/L (0-33); Albumin Level 2.9 g/dL (3.5-5.2); Alkaline Phosphatase 86 IU/L (35-105); Blood Urea Nitrogen 10 mg/dL (8-23); Calcium 8.5 mg/dL (8.5-10.5); Carbon Dioxide 24 mmol/L (22-29); Chloride 107 mmol/L (98-107); Chol HDL Ratio 3.62 mg/dL (0.0-4.40); Cholesterol 152 mg/dL (0-200); Globulin 2.4 g/dL (1.3-4.6); Glucose 73 mg/dL (65-115); HDL Cholesterol 42 mg/dL (60-100); LDL Cholesterol Calculated 91 mg/dL (50-129); LDL HDL Ratio 2.17 RATIO (0.00-3.22); Magnesium 1.9 mg/dL (1.7-2.3); Osmolality Calculated 288 mOsm/kg (285-295); Phosphorus 2.6 mg/dL (2.5-4.5); Sodium 140 mmol/L (136-145); Total Bilirubin 0.6 mg/dL (0.15-1.2); Total Protein 5.3 g/dL (6.6-8.7); Triglycerides 96 mg/dL (0-150)
[2021-07-13 05:40] LABS: Anion Gap 13.3 (5-19); Potassium 4.3 mmol/L (3.5-5.1)
[2021-07-13 05:42] LABS: Aspartate Amino Transferase 21 U/L (0-32)
[2021-07-13 06:08] LABS: Glucose Point of Care 106 mg/dL (70-110)
[2021-07-13] MEDS: sodium chloride 0.9% 1,000 ML 75 ML IV (06:10)
[2021-07-13] MEDS: aspirin 81 mg Chew Tablet PO (09:03)
[2021-07-13] MEDS: atorvastatin 40 mg Tablet PO (09:03)
[2021-07-13] MEDS: predniSONE 10 mg Tablet PO (09:03)
[2021-07-13] MEDS: apixaban 5 mg Tablet PO (09:03)
[2021-07-13] MEDS: pantoprazole DR 40 mg Tablet PO (09:03)
--- NOTE | 2021-07-13 09:13 | PC.NURSE ---
Transportation set up for MRI at 1015 with Travis at [facility].
--- NOTE | 2021-07-13 09:57 | PC.CHAP ---
Pastoral Care Encounter/Spiritual Assessment Type of Contact [] Declined timber sizer visit [] Patient/Family/Request visit [] Outpatient visit [] Follow-up visit [] Physician referral [] Code/Alert [x] Routine visit [] Staff referral [] Actively dying [] Patient sleeping [] Family support [] [] Out of room [] Palliative care [] [] Receiving care in room [] Pre-surgical visit [] Trauma [] Long length of stay [] ICU visit [] Other: Relational/Emotional Strength [x] Patient feels connected with others/family/visitors/staff [] Distress [] Loneliness/isolation [] Abandonment Spirituality of Patient [x] Person of Kaitlin [x] Attends Church of their Kaitlin [x] Believes in Prayer [] Reads Bible or Nondenominational materials [] There are Spiritual issues to be addressed Wooden Box Maker Interventions [x] Prayer [x] Active listening x[x] Non-anxious presence [] Spiritual/emotional support [] Crisis/trauma care [] Spiritual counseling [] Bereavement support [] Provided bereavement packet [] Provided Bible/devotional materials [] Provided toy/stuffed animal, coloring book to patient or family member [] Provided Communion [] Anointing/[place] [] Salvation [x] Completed spiritual assessment [] Other: Impact on Illness or Injury [] Angry [] Fearful [] Anxious [] Often cries [] Exhaustion [] Unable to work [] Unable to attend druze [] Unable to walk/stand [] Unable to read [] Unable to drive [] Unable to eat/drink [] Unable to sleep [] Unable to be with family [] Patient intubated [] Other: Supatient patient feeling much better Time spent with patient 10 min
--- NOTE | 2021-07-13 10:04 | PC.OT ---
OT NOTE: OT EVALUATION ATTEMPTED; PATIENT IS CURRENTLY IN PROCESS OF BEING TAKEN TO MRI; WILL ATTEMPT AGAIN AT A LATER TIME.
--- NOTE | 2021-07-13 10:54 | PC.NURSE ---
AT APPROX 1005 PT WAS TRANSPORTED TO MRI
--- NOTE | 2021-07-13 11:00 | MR_ITS ---
WS: [id number] MRI HEAD WITHOUT CONTRAST TECHNIQUE: Sagittal T1, T2 axial, T2 axial FLAIR, axial and coronal T1 images, axial susceptibility w eighted imaging, axial diffusion weighted images, and coronal T2 images were obtained. CLINICAL INFORMATION: recurrent neuro symptoms COMPARISON: CT July 12, 2021 FINDINGS: No evidence of restricted diffusion to suggest acute ischemia. Ventricular system and basal cisterns are patent. Moderate small vessel changes. Moderate parenchymal volume loss. Normal posterior fossa. Normal vascular flow voids at the skull base. No extra-axial fluid collections. Mild mucosal thickeni ng in the paranasal sinuses and mastoid air cells. Chronic lacunar infarct left cerebellum. No hemosi german on susceptibly weighted images. Normal optic chiasm and pituitary infundibulum. Moderate symmet nirmal atrophy temporal lobes and hippocampal formations. No other significant findings. MR/MR head wo con* [id number] IMPRESSION: Some images degraded by motion artifact 1. No evidence of restricted diffusion to suggest acute ischemia. 2. Moderate small vessel changes with moderate parenchymal volume loss. 3. Chronic lacunar infarct left cerebellum. 4. Mild mucosal thickening paranasal sinuses and mastoid air cells. 5. Moderate symmetric atrophy temporal lobes and hippocampal formations. 6. No hemosiderin on the susceptibility weighted images.
[2021-07-13 11:17] LABS: Glucose Point of Care 110 mg/dL (70-110)
--- NOTE | 2021-07-13 11:46 | PC.OT ---
OT EVALUATION ATTEMPTED TWICE TODAY; 1ST ATTEMPT: PATIENT AT MRI 2ND ATTEMPT: PATIENT ANSWERS IDENTIFYING QUESTIONS; BUT THEN SNORES LOUDLY AND UNABLE TO MAINTAIN ALERTNESS TO CONTINUE EVALUATION. NURSING INFORMED. WILL ATTEMPT AGAIN TOMORROW.
[2021-07-13 12:19] LABS: Glucose Point of Care 122 mg/dL (70-110)
--- NOTE | 2021-07-13 13:43 | P.DS_ITS ---
Discharge Providers Date of Admission: 07/12/21 03:54 Date of Discharge: July 13, 2021 Attending Provider at Admission: Oleg Hughes MD Attending Provider at Discharge: Franck Trejo MD Primary Care Provider: Leonardo Loaiza MD Diagnoses at Discharge Discharge Diagnosis (1) CVA (cerebral vascular accident): Status: Acute (2) FCI systemic steroid user: Status: Acute (3) Pulmonary embolism: Status: Acute Qualifiers: Acute cor pulmonale presence: without acute cor pulmonale Chronicity: acute Pulmonary embolism type: other Qualified Code(s): I26.99 - Other pulmonary embolism without acute cor pulmonale (4) GERD (gastroesophageal reflux disease): Status: Acute Qualifiers: Esophagitis presence: without esophagitis Qualified Code(s): K21.9 - Gastro-esophageal reflux disease without esophagitis (5) Osteoarthritis involving multiple joints on both sides of body: Status: Acute (6) Hypothyroidism: Status: Acute (7) HTN (hypertension): Status: Acute (8) Chronic pain disorder: Status: Chronic (9) PMR (polymyalgia rheumatica): Status: Chronic (10) Type 2 diabetes mellitus with diabetic neuropathy, unspecified: Status: Chronic Reason for Visit Reason for Visit: POSSIBLE STROKE Hospital Course Hospital Course Jaclyn is a 75-year-old white female who presented to the hospital with weakness, blurry or double vision, and slurred speech. There was concern this might be secondary to a CVA. She had already received in the recent past the CTA of her neck, as well as echocardiogram demonstrating no significant valvular concerns, thrombus, or flow-limiting vascular lesions. She was already on aspirin as well as anticoagulation for previous history of pulmonary emboli and cerebrovascular disease. There was concern as well that her slurred speech and lethargy might be due to sedating medications, or blood sugar lower than is typical for her. Lantus was discontinued. Neurontin reduced. Oxycodone reduced. Temazepam discontinued. With these changes, she became much more active and back to baseline. She was able to participate with physical therapy going up and down steps as well as walking in the hallway with a walker. MRI was completed which demonstrated no acute lesions. Initial head CT negative. MRI did demonstrate old lacunar infarct, left cerebellum. No arrhythmias present during hospital stay. With these findings, and clinical improvement it was thought she could discharge home. This was arranged. I discussed with her the reduction in her medications to try to reduce recurrence of any further episodes. Physical Exam Narrative: EXAM NARRATIVE: General exam no distress Neck is supple Cardiovascular regular rate and rhythm Lungs clear Abdomen is soft, positive bowel sounds Extremities no cyanosis clubbing or edema Urinary Catheter Management^: Real: Cath Placed During This Visit: yes Reason for Continuing Indwelling Catheter: Acute Urinary Retention or Obstruction Urinary Catheter Date of Insertion: 07/12/21 Urinary Catheter Time of Insertion: 03:00 Discharge Data Data Completed and Pending: Completed Studies During Hospitalization Category Date Time Status CT head wo con* 7 0450 Stat Cat Scan 07/12/21 02:00 Completed XR chest 1V nola ble 96387 Urgent Exams 07/12/21 02:00 Completed MR head wo con* 7 0551 Routine MRI 07/13/21 11:00 Completed Pending at discharge Category Date Time Status Blood Culture Sta t Lab 07/12/21 06:38 Results Complete Blood Co unt w/Auto AM LABS Lab 07/14/21 04:00 Ordered Complete Blood Co unt w/Auto AM LABS Lab 07/15/21 04:00 Ordered Comprehensive Met abolic Panel AM LA BS Lab 07/14/21 04:00 Ordered Comprehensive Met abolic Panel AM LA BS Lab 07/15/21 04:00 Ordered Magnesium AM LABS Lab 07/14/21 04:00 Ordered Magnesium AM LABS Lab 07/15/21 04:00 Ordered Phosphorus AM LAB S Lab 07/14/21 04:00 Ordered Phosphorus AM LAB S Lab 07/15/21 04:00 Ordered Urinalysis Routin e Lab 07/12/21 04:26 Uncollected Labs from last 24 hours 07/13/21 07/13/21 07/13/21 12:15 11:12 06:02 WBC RBC Hgb Hct MCV MCH MCHC RDW Plt Count MPV Neut % (Auto) Lymph % (Auto) [place] % (Auto) Eos % (Auto) Baso % (Auto) Neut # (Auto) Lymph # (Auto) [place] # (Auto) Eos # (Auto) Baso # (Auto) Nucleated RBC % (a uto) Nucleated RBCs # Sodium Potassium Chloride Carbon Dioxide Anion Gap BUN Creatinine GFR Calculation Glucose POC Glucose 122 H 110 106 Estimat Average Gl ucose Hemoglobin A1c Calculated Osmolal ity Calcium Phosphorus Magnesium Total Bilirubin AST ALT Alkaline Phosphata se Total Protein Albumin Globulin Triglycerides Cholesterol LDL Cholesterol, C alc HDL Cholesterol LDL/HDL Ratio Cholesterol/HDL Ra ana 07/13/21 07/13/21 07/13/21 04:16 04:16 04:16 WBC 11.8 H RBC 4.04 L Hgb 12.0 Hct 38.1 MCV 94.3 MCH 29.7 MCHC 31.5 RDW 14.7 Plt Count 223 MPV 11.2 H Neut % (Auto) 70.7 Lymph % (Auto) 19.9 [place] % (Auto) 6.4 Eos % (Auto) 1.6 Baso % (Auto) 0.5 Neut # (Auto) 8.32 H Lymph # (Auto) 2.3 [place] # (Auto) 0.8 Eos # (Auto) 0.2 Baso # (Auto) 0.1 Nucleated RBC % (a uto) 0 Nucleated RBCs # 0.0 Sodium 140 Potassium 4.3 Chloride 107 Carbon Dioxide 24 Anion Gap 13.3 BUN 10 Creatinine 0.6 GFR Calculation Not Reportable Glucose 73 POC Glucose Estimat Average Gl ucose 157 Hemoglobin A1c 7.1 H Calculated Osmolal ity 288 Calcium 8.5 Phosphorus 2.6 Magnesium 1.9 Total Bilirubin 0.6 AST 21 ALT 14 Alkaline Phosphata se 86 Total Protein 5.3 L Albumin 2.9 L Globulin 2.4 Triglycerides 96 Cholesterol 152 LDL Cholesterol, C alc 91 HDL Cholesterol 42 L LDL/HDL Ratio 2.17 Cholesterol/HDL Ra ana 3.62 07/12/21 07/12/21 07/12/21 19:06 17:07 13:54 WBC RBC Hgb Hct MCV MCH MCHC RDW Plt Count MPV Neut % (Auto) Lymph % (Auto) [place] % (Auto) Eos % (Auto) Baso % (Auto) Neut # (Auto) Lymph # (Auto) [place] # (Auto) Eos # (Auto) Baso # (Auto) Nucleated RBC % (a uto) Nucleated RBCs # Sodium Potassium Chloride Carbon Dioxide Anion Gap BUN Creatinine GFR Calculation Glucose POC Glucose 157 H 147 H 129 H Estimat Average Gl ucose Hemoglobin A1c Calculated Osmolal ity Calcium Phosphorus Magnesium Total Bilirubin AST ALT Alkaline Phosphata se Total Protein Albumin Globulin Triglycerides Cholesterol LDL Cholesterol, C alc HDL Cholesterol LDL/HDL Ratio Cholesterol/HDL Ra ana Vitals: Last Vital Signs Temp 98.5 F 09/20/21 11:15 Pulse 61 07/13/21 11:15 Resp 17 07/13/21 11:15 BP 149/76 07/13/21 11:15 Pulse Ox 98 07/13/21 11:15 Discharge Plan Discharge Patient Disposition: Home Condition: Stable Prescriptions: New levothyroxine 112 mcg Tablet 112 mcg PO QAM Qty: 30 RF: 0 Neurontin 100 mg capsule 100 mg PO TID Qty: 90 RF: 0 Continued oxycodone 10 mg tablet 10 mg PO QID 30 Days Qty: 120 RF: 0 (DME) Accu-Chek Lauryn Plus test strp Strip See Rx Instructions .ROUTE .MEDSUPPLY Qty: 100 RF: 11 omeprazole 20 mg capsule,delayed release(DR/EC) See Rx Instructions .ROUTE .COMPLEX Qty: 90 RF: 0 prednisone 10 mg tablet 10 mg PO DAILY 30 Days Qty: 30 RF: 1 (DME) pen needle, diabetic [BD Aishwarya 2nd Gen Pen Needle] 32 gauge x 5/32 needle See Rx Instructions .Route Qty: 100 RF: 0 lisinopril 20 mg tablet See Rx Instructions .ROUTE .COMPLEX Qty: 90 RF: 0 sertraline 50 mg tablet See Rx Instructions .ROUTE .COMPLEX Qty: 90 RF: 0 Januvia 100 mg tablet See Rx Instructions .ROUTE .COMPLEX Qty: 90 RF: 0 atorvastatin 40 mg tablet 40 mg PO DAILY Qty: 90 RF: 3 aspirin 81 mg Tablet,Chewable 81 mg PO DAILY RF: 0 Eliquis 5 mg tablet 5 mg PO BID 90 Days Qty: 180 RF: 0 Changed oxycodone 10 mg tablet 5 mg PO QID PRN (Reason: pain) 30 Days Qty: 120 RF: 0 Discontinued gabapentin 300 mg capsule 300 mg PO QID 30 Days Qty: 120 RF: 1 temazepam 15 mg capsule 15 mg PO BEDTIME@2000 30 Days Qty: 30 RF: 1 Lantus Solostar U-100 Insulin 100 unit/mL (3 mL) insulin pen See Rx Instructions .ROUTE .COMPLEX Qty: 15 RF: 0 levothyroxine 100 mcg tablet See Rx Instructions .ROUTE .COMPLEX Qty: 90 RF: 0 Discharge Orders: Discharge Order (Routine); Ordered 07/13/21 Ordered By: Franck Trejo Referrals: Leonardo Loaiza MD [Primary Care Provider] - 4-7 days Discharge Diet: Diabetic Discharge Activity: Increase activity as tolerated Patient Instructions: Gabapentin (By mouth), Levofloxacin (By mouth), Ischemic Stroke (GEN), Opioid Safety, Stroke Stoplight Activity Restrictions/Additional Instructions: Reduce your pain medicine to 5 mg every 6 hours as needed. Reduce Neurontin to 100 mg 3 times daily. Stop temazepam. Follow-up with your regular provider. 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
--- NOTE | 2021-07-15 09:32 | SUR.PHASEI ---
discharge follow up call made, spoke with patients daughter, Uyen. Uyen reports that the hospital experience was horrible. She reports the doctor didn't listen or care what she had to say, her mothers under garments were left out and exposed, there was dried urine in the bsc, she heard nurses in the [facility] talking about her. I will pass these concerns onto NELA Gresham, Med surg manager animation. Daughter reports pain medications were changed that patient has been on for 12 years for arthritis, she is waiting for a call back from the pain clinic to address these issues. Patient has follow up today with pcp, daughter will discuss change in medications with primary. Patient is feeling better, and back to herself, per daughter.
== END 2021-07-13 17:05 | disposition home or self-care (01) ==
LOC: ER 04:00 → MEDSURG 04:10
PROVIDERS: Hospitalist; Admitting Provider Family Medicine; Emergency Provider Emergency Medicine; PCP Family Medicine Adult Medicine; Visit Provider Internal Medicine
DX: I63.9 Cerebral infarction, unspecified (principal); R29.701 NIHSS score 1; Z79.52 Long term (current) use of systemic steroids; I26.99 Other pulmonary embolism without acute cor pulmonale; K21.9 Gastro-esophageal reflux disease without esophagitis; M15.9 Polyosteoarthritis, unspecified; E03.9 Hypothyroidism, unspecified; I10 Essential (primary) hypertension; G89.4 Chronic pain syndrome; M35.3 Polymyalgia rheumatica; E11.40 Type 2 diabetes mellitus with diabetic neuropathy, unspecified; Z79.4 Long term (current) use of insulin; Z86.73 Personal history of transient ischemic attack (TIA), and cerebral infarction without residual deficits; M25.562 Pain in left knee; M25.561 Pain in right knee; Z79.891 Long term (current) use of opiate analgesic; F32.9 Major depressive disorder, single episode, unspecified; Z79.01 Long term (current) use of anticoagulants; Z79.82 Long term (current) use of aspirin; F41.9 Anxiety disorder, unspecified
CPT/HCPCS: 36415; 36416; 36600; 51702; 70450; 70551; 71045; 80053; 80061; 81003; 82803; 82962; 83036; 83605; 83735; 84100; 84443; 85025; 85610; 87040; 87426; 93005; 96360; 96361; 96372; 97161; 97530; 99285; G0378; J1815; J7030; J7512